=== PATIENT | female | born 1980 | race Caucasian/White ===

== ENCOUNTER 2020-04-12 21:05 | Emergency (ER) | payer OTHER, SELFPAY ==
--- NOTE | 2020-04-12 21:23 | ED.ALLEREA ---
HPI - Allergic Reaction General Chief complaint: Allergic Reaction Stated complaint: possible allergic reaction Time Seen by Provider: 04/12/20 21:23 Source: patient and RN notes reviewed Mode of arrival: ambulatory Limitations: no limitations History of Present Illness HPI narrative: Patient states that she woke up this morning with some flushing and swelling around her eyes. It seemed to progress to other parts of her body. She denies any contact with any lotions creams detergents new foods. She has had a history of allergy to NSAIDs in the past. She does not believe she came in contact with any of those. She denies any difficulty breathing chest pain. Denies any nausea vomiting abdominal pain. complaint: hives Onset (ago): hour(s) (14) Exposure: unknown Known history of allergy to: NSAIDS Symptoms: rash and itching Severity: moderate Treatment prior to arrival: benadryl Previous Allergic Reaction History: prior ED visit(s) Related Data Home Medications Medication Instructions Recorded Confirmed alprazolam 0.5 mg PO QID 04/12/20 04/12/20 Allergies Allergy/AdvReac Type Severity Reaction Status Date / Time ibuprofen Allergy Severe HIVES Unverified 08/18/19 09:55 ketorolac Allergy Severe Hives / Verified 08/18/19 09:55 Red Face naproxen Allergy Severe HIVES Verified 08/18/19 09:55 adhesive tape Allergy Intermediate ARAYA SKIN Verified 08/18/19 09:55 Review of Systems Constitutional: Constitutional: Denies chills, Denies fatigue, Denies fever(s) and Denies weakness Cardiovascular: Cardiovascular: Reports no additional cardiovascular complaints, Denies chest pain and Denies rapid heart rate Respiratory: Respiratory: Reports no additional respiratory complaints, Denies chest congestion, Denies dyspnea and Denies wheezing Gastrointestinal: Gastrointestinal: Reports no additional gastrointestinal complaints, Denies abdominal pain, Denies nausea and Denies vomiting Musculoskeletal: Musculoskeletal: Reports no additional musculoskeletal complaints Integumentary/Breasts: Skin/Breast: Reports as per HPI Neurologic: Reports system reviewed and no additional complaints, except as documented Psychiatric: Psychiatric: Reports no additional psychiatric complaints Endocrine: Endocrine: Reports no additional endocrine complaints PMFSH Past Medical History Medical History (Updated 04/12/20 @ 21:44 by Jermaine Alanis MD) Anxiety Surgical History Surgical History (Updated 04/12/20 @ 21:35 by Jermaine Alanis MD) H/O: hysterectomy History of appendectomy History of eye surgery Social History Social History (Updated 04/12/20 @ 21:36 by Jermaine Alanis MD) Smoking status: Never smoker Alcohol intake: never Substance use: never Exam Const: General: healthy appearing, no acute distress and alert Nutritional Appearance: well nourished Orientation/consciousness: patient oriented x3 Other: female nurse in room during examination. Eyes: Conjunctivae: conjunctivae normal Pupils: Equal, round and reactive pupils present EOM: EOMs intact bilaterally Neck: Neck: normal visual inspection and no lymphadenopathy Resp: Effort & Inspection: normal respiratory effort Auscultation: clear to auscultation bilaterally Cardio: Rate: regular rate Rhythm: regular rhythm Heart sounds: no murmurs GI: Auscultation: normal bowel sounds Back/Spine/Pelvis: Cervical Spine: cervical ROM normal Thoracic/Lumbar Spine: thoraco-lumbar ROM normal Skin: General skin exam: elasticity normal and turgor normal Rashes: rashes noted multiple locations distribution (scattered), morphology ( Urticarial), surface blanching, erythematous and warm and tender Neuro: General: patient oriented x3, moves all extremities and no focal motor deficits Speech: normal speech Extrem: General: normal to inspection and edema right (Ankle) Psych: Appearance: grossly normal and well kempt Affect: normal affect and Anxious affect pres
[2020-04-12 21:26] VITALS: BP 135/89; PULSE 54; RESP 17; TEMP 37.1; O2SAT 100
[2020-04-12] MEDS: methylPREDNISolone SOD SUCC 125 MG VIAL IM (21:38)
[2020-04-12] MEDS: FAMOTIDINE 20 MG TABLET PO (21:38)
[2020-04-12 21:54] VITALS: RESP 17
== END 2020-04-12 21:55 | disposition home or self-care (01) ==
PROVIDERS: Emergency Provider Emergency Medicine; PCP Internal Medicine
DX: L50.9 Urticaria, unspecified (principal)
CPT/HCPCS: 96372; 99282; 99283; A9270; J2930

== ENCOUNTER 2022-02-10 09:36 | Emergency (ER) | payer OTHER, SELFPAY ==
[2022-02-10 09:50] VITALS: BP 123/81; PULSE 68; RESP 16; TEMP 36.6; O2SAT 100
--- NOTE | 2022-02-10 10:00 | ED.EAR ---
HPI - Ear Problem General Stated complaint: lt ear pressure, loss of hearing Time Seen by Provider: 02/10/22 09:50 Source: patient Mode of arrival: ambulatory Limitations: no limitations History of Present Illness HPI Narrative: Pt presents with pain and pressure sensation in left ear for three days. Pt has some mild pressure in sinuses and nasal congestion but no purulent nasal drainage, fever, or SIFUENTES Complaint: ear pain and decreased hearing Location: left ear Duration: constant Severity: mild Relieving factors: nothing Exacerbating factors: nothing Context: Reports recent illness (nasal congestion) Discharge from ear: Reports no Treatment prior to arrival: none Related Data Home Medications Medication Instructions Recorded Confirmed No Home Medications 02/10/22 02/10/22 Allergies Allergy/AdvReac Type Severity Reaction Status Date / Time ibuprofen Allergy Severe HIVES Verified 02/10/22 10:02 ketorolac Allergy Severe Hives / Verified 02/10/22 10:02 Red Face naproxen Allergy Severe HIVES Verified 02/10/22 10:02 adhesive tape Allergy Intermediate ARAYA SKIN Verified 02/10/22 10:02 Review of Systems Review of Systems: All systems reviewed & are unremarkable except as noted in HPI and below PMFSH Past Medical History Medical History (Updated 02/10/22 @ 10:08 by Yovayn Gottlieb III, DO) Anxiety Surgical History Surgical History (Updated 04/12/20 @ 21:35 by Jermaine Alanis MD) H/O: hysterectomy History of appendectomy History of eye surgery Social History Social History (Updated 04/12/20 @ 21:36 by Jermaine Alanis MD) Smoking status: Never smoker Alcohol intake: never Substance use: never Exam Const: General: cooperative, healthy appearing, comfortable and no acute distress Nutritional Appearance: average body habitus Orientation/consciousness: patient oriented x3 Limitations: no limitations HENMT: Head: normal to inspection Ears: TM abnormal (TM's bulging b/l but left more than right no erythema) bulging General nose exam: Normal nasal mucous membranes and turbinates present Face and sinus: normal facial exam Mouth: Yes Normal oral and palatal mucosa present Teeth and gingiva: dentition normal Throat: posterior oropharynx normal Neck: Neck: normal visual inspection, full ROM and no lymphadenopathy Resp: Effort & Inspection: normal respiratory effort and able to speak in complete sentences Cardio: Jugular venous distension: no JVD Rate: regular rate Rhythm: regular rhythm Neuro: General: patient oriented x3 Cognition (Neuro): normal cognition Speech: normal speech Gait exam (Neuro): Normal gait present Psych: Appearance: grossly normal Mental Status: mental status grossly normal Speech and movement: Normal speech and movement present Affect: normal affect Attitude: cooperative Thought process: Normal thought process present Thought content: Yes Normal thought content present Discharge Plan Discharge Clinical Impression: Sinusitis Qualifiers: Sinusitis location: maxillary Chronicity: acute Recurrence: not specified as recurrent Qualified Code(s): J01.00 - Acute maxillary sinusitis, unspecified Patient Disposition: Home, Self-Care Condition: Stable Instructions: Antibiotic Form Additional Instructions: augmentin 875 mg BID for 10 d, also use afrin NS as directed for 2-3 days only to relieve pressure Prescriptions: No Action No Home Medications RF: 0 Follow-up/Referrals: Glenda,Kishan Del Cid MD [Primary Care Provider] -
== END 2022-02-10 10:16 | disposition home or self-care (01) ==
PROVIDERS: Emergency Provider Emergency Medicine; PCP Internal Medicine
DX: J01.00 Acute maxillary sinusitis, unspecified (principal)
CPT/HCPCS: 99281

== ENCOUNTER 2022-08-07 09:33 | Outpatient (CLI) | payer OTHER, SELFPAY | END 2022-08-07 09:34 | disposition home or self-care (01) | LOC: ANHSURGERY 09:38 | PROVIDERS: PCP Internal Medicine; Visit Provider Surgery | DX: K40.90 Unilateral inguinal hernia, without obstruction or gangrene, not specified as recurrent (principal); Z01.818 Encounter for other preprocedural examination | CPT/HCPCS: 36415; 86850; 86900; 86901 ==

== ENCOUNTER 2022-08-10 01:45 | Day surgery (SDC) | payer OTHER, SELFPAY ==
[2022-08-04 10:57] VITALS: BMI 22.6
--- NOTE | 2022-08-04 11:07 | PC.NURSE ---
Report to the Outpatient Waiting Room, entrance under the green pavilion located off [facility], at time 7:30 on date 08/10/22. OR Time: 9:30. Time changes happen often and if your time is changed the preop area will call you the afternoon before. - You and your visitor will be asked to self-screen and do not enter if you have any COVID symptoms. - Only one visitor and NO children visitors are allowed at this time. - The patient visitor is requested to leave or wait in car when not with patient due to restrictions. - A mask is required within the hospital. Patients may have clear liquids (water, carbonated beverages, clear teas, apple juice) until 3 hours prior to surgery (6:30) with a maximum of 20 ounces. - No food from midnight until time of surgery Take the following medications with a SIP of water the morning of surgery: NONE Medications to discontinue per physician: VITAMINS/SUPPLEMENTS Date to take last dose: 08/06/22 Please no make-up, nail belarusian, hairspray, perfume, deodorant, or body powder the day of surgery. No jewelry (including any body piercings) or valuables the day of surgery, leave them at home. Please take a shower or bath the night before, or the morning of, surgery with an antibacterial soap (HIBICLENS). Wear comfortable, loose fitting clothing. - Jewelry must be removed prior to entering the operating room. Rings and piercings that are not removed may be cut off. - The hospital will not accept responsibility for valuables. - Please leave all valuables, including medications, at home the day of surgery. If you are going home after surgery, a licensed team cdl driver must drive you home. - NO public transportation without another adult. - We recommend that an adult stay with you for 24 hours following discharge. - We also recommend that you do not drive, make important decision, drink alcoholic beverages, or take any drugs that were not prescribed by your health care provider for at least 24 hours after your discharge time. Follow any additional instructions given to you from your surgeon. If you or anyone in your household have experienced Covid symptoms in the past week, please notify your surgeon or the nurse liaison at the phone number below for possible testing. Telephone instructions given to PT - ARJUN CANO and asked if any additional questions and then verbalized understanding. Patient advised to call surgeon office or pre surgery nurse liaison [phone] if any additional questions.
[2022-08-10] VITALS (11 sets, daily range): BP systolic 105–136; BP diastolic 50–87; PULSE 51–100; RESP 8–16; TEMP 36.3–36.4; O2SAT 92–100
--- NOTE | 2022-08-10 07:30 | WPDHPUPDATE1 ---
History and Physical Update Update Date/Time: 08/10/22 07:30 History and Physical has been reviewed, including an updated exam of the patient. There are NO changes in the patient's condition. Risks, benefits, and alternatives have been discussed and questions answered. Patient agrees to proceed with procedure.
--- NOTE | 2022-08-10 08:08 | P.PNAN_ITS ---
Anes - Initial Pre Proc Eval Procedure: Operation Date: 08/10/22 09:30 Proposed Procedures p Robotic Assisted Right Inguinal Hernia Repair with Mesh - Nohemi Tang MD Date/Time: 08/10/22 08:08 Surgeon: Nohemi Tang MD Pre Op Diagnosis: Rt Ing Hernia Patient Data Age: 42 Gender: F Height: 1.63 m Weight: 59.87 kg Allergies Allergy/AdvReac Type Severity Reaction Status Date / Time ibuprofen Allergy Severe HIVES Verified 08/04/22 10:54 ketorolac Allergy Severe Hives / Verified 08/04/22 10:54 Red Face naproxen Allergy Severe HIVES Verified 08/04/22 10:54 adhesive tape Allergy Intermediate ARAYA SKIN Verified 08/04/22 10:54 Home Medications Medication Instructions Recorded Confirmed Type docusate sodium 100 mg capsule 100 mg PO DAILY 08/04/22 08/04/22 History (Colace) multivitamin 1 tablet PO DAILY 08/04/22 08/04/22 History Patient hx anesthesia problems: none Family hx anesthesia problems: none Results Review: All pre-operative results and documents have been reviewed as part of the pre- operative evaluation. [facility] Past Medical History Medical History Anxiety History of breast implant removal 2020 Traumatic enucleation of left eye Surgical History Surgical History (Updated 08/10/22 @ 08:09 by Lester Barba MD) H/O: hysterectomy 2017 History of appendectomy 1993 History of eye surgery left eye-multiple surgeries as a child Family History Family History Father , at age 58 Carcinoma of colon Diabetes mellitus Social History Social History Social History: daily caffeine use- 2 cups of coffee Years smoked: 10 Smoking status: Former smoker Tobacco type: cigarettes Smoking end date: 11/22/05 Alcohol intake: never Substance use: never Substance use type: does not use Living arrangements: with family Additional living arrangements comments: Patient is and has two children. One female, one male. Additional occupation/education comments: stay at home mother Gender identity (if verbalized by the patient): Female Sexual Orientation (if Verbalized by the Patient): Straight or Heterosexual Spiritual care concerns: No Anes - Eval Final PreProcedure Day of Procedure 08/10/22 08:08 Patient weight: normal Heart: regular rate and rhythm Lungs: clear to auscultation Airway: Mallampati scale class 1 and other (hx of TMJ with distant hx of dislocation) ASA classification: II Emergent: no Anesthetic plan: proceed Anesthesia type and monitoring: general ETT and standard monitoring Results Review: All pre-operative results and documents have been reviewed as part of the pre- operative evaluation. Informed Consent: The patient's anesthetic plan of GA with glidescope intubation and its attendant risks and benefits were discussed with the patient/family/POA. Questions were solicited and answers provided to the satisfaction of the patient/family/POA.
[2022-08-10] MEDS: ACETAMINOPHEN 500 MG TABLET 1000 MG PO (08:27)
[2022-08-10] MEDS: LACTATED RINGERS 1,000 ML 30 ML IV CONT ×2 (08:30→11:00)
[2022-08-10] MEDS: ceFAZolin 2 GM/D5W 50 ML 2 GM/50 ML BAG IVPB (09:12)
[2022-08-10] MEDS: BUPIVACAINE/EPINEPHRINE 0.25% 50 ML VIAL 30 ML INFILTRATE (09:47)
--- NOTE | 2022-08-10 10:18 | W.PM.PROC2 ---
Procedure Note - Detailed Date of Procedure 08/10/22 Pre-op Diagnosis right inguinal hernia Post-op Diagnosis Same Procedure Performed robotic assisted right inguinal hernia repair with mesh Surgeon Nohemi Tang MD Anesthesia General Indications 42-year-old female with progressively worsening right inguinal hernia over the last few years Findings indirect right inguinal hernia Description of Procedure Patient was brought into the operating room and placed in the supine position. After adequate induction of general anesthesia, the patient was prepped and draped in normal sterile fashion. A time-out was then done to verify the patient's identity, as well as the procedure being performed. Began by making a 8 mm incision in the supraumbilical region, a Veress needle was then placed into the peritoneal cavity. CO2 gas was then insufflated and after adequate pneumoperitoneum was achieved, the Veress needle was removed. I then placed an 8 mm trocar through this incision. I then placed the endoscope through this trocar site and under direct visualization placed 2 further 8 mm ports in the right and left mid abdomen. The [employer] robot was then docked to the 3 trocar sites. I then scrubbed out and went to the robotic console. Upon examining the pelvis, it was noted that the patient had a moderate right inguinal hernia. The left side was examined and no hernia defect was noted. I began by making a preperitoneal flap approximately 6 cm superior to the defect. This flap was carried medially past the umbilical ligaments in laterally to the transversalis. It then began dissection of my medial compartment taking this down to the pubic tubercle. I then began the lateral dissection taking this down to the transversalis fascia. Once these compartments were achieved, I began dissection around the round ligament. A moderate indirect hernia was noted at this point. Using careful dissection, was able to reduce indirect hernia sac off the round ligament. I also went ahead and transected the round ligament. Once this was adequately done, I went ahead and placed a large piece of 3D Max mesh into the abdominal cavity. The mesh was carefully positioned, centering the center of the mesh over the indirect defect. Once this was done, was very satisfied with our repair. Using 3-0 Vicryl sutures, I tacked the mesh medially to Brian's ligament. Two lateral sutures were placed from the mesh to the transversalis fascia. I then closed the peritoneal flap with a running 2.0 V Lock suture. The abdomen was then desufflated, and all ports were removed. All incisions were then closed with the 4.0 monocryl suture. Dermabond was placed on each wound. The patient tolerated the procedure well, was extubated in the operating room postoperatively, and will now be transferred to the recovery room in stable condition. Implants large 3DMax mesh Estimated Blood Loss 10 Drains No Packing No Pathology None sent Complications No immediate complications Condition Stable Disposition PACU [facility] Billing Surgery - Charge Forward: Surgery Billing
[2022-08-10] MEDS: fentaNYL CITRATE INJ (*CRX) 100 MCG/2 ML VIAL 25 MCG IV PUSH ×8 (10:48→11:39)
[2022-08-10] MEDS: HYDROmorphone HCL INJ (*CRX) 1 MG/ML SYR 0.5 MG IV PUSH ×2 (11:47→11:53)
[2022-08-10] MEDS: ONDANSETRON INJ 4 MG/2 ML VIAL IV PUSH (12:21)
== END 2022-08-10 12:53 | disposition home or self-care (01) ==
PROVIDERS: PCP Internal Medicine; Visit Provider Surgery
PROC: 8E0Y4CZ Robotic Assisted Procedure of Lower Extremity, Percutaneous Endoscopic Approach (ICD-10-PCS; CPT 49650; principal; 2022-08-10 09:30)
DX: K40.90 Unilateral inguinal hernia, without obstruction or gangrene, not specified as recurrent (principal); Z87.891 Personal history of nicotine dependence
CPT/HCPCS: 49650; S2900; A9270; C1781; J0690; J1100; J1170; J2250; J2405; J2704; J2710; J3010; J7120

== ENCOUNTER 2022-09-07 08:57 | Outpatient (CLI) | payer OTHER, SELFPAY ==
--- NOTE | ~2022-09-07 | MM_ITS ---
EXAMINATION: MM screening [facility] w petar HISTORY: Screening TECHNIQUE: Craniocaudal and mediolateral oblique 3-D tomosynthesis images were obtained and synthetic 2-D images were generated. CAD analysis was submitted and interpreted. COMPARISON: 10/28/2015 BREAST PARENCHYMAL COMPOSITION: The breasts are extremely dense, which lowers the sensitivity of mamm ography FINDINGS: There is no evidence of suspicious mass, calcification, or architectural distortion to sugg est malignancy in either breast. There has been no suspicious interval change. IMPRESSION: 1. No mammographic evidence of malignancy. 2. Recommend routine screening mammography in one year. BI-RADS Category 1: Negative Reviewed, dictated and finalized at location A.
== END 2022-09-07 08:58 | disposition home or self-care (01) ==
LOC: ANHIMG 08:58
PROVIDERS: PCP Internal Medicine; Visit Provider Obstetrics & Gynecology
DX: Z12.31 Encounter for screening mammogram for malignant neoplasm of breast (principal)
CPT/HCPCS: 77063; 77067

== ENCOUNTER 2023-12-31 14:45 | Outpatient (CLI) | payer OTHER, SELFPAY ==
--- NOTE | ~2023-12-31 | MM_ITS ---
EXAMINATION: MM screening [facility] BI w petar HISTORY: Screening mammogram TECHNIQUE: Craniocaudal and mediolateral oblique 3-D tomosynthesis images were obtained and synthetic 2-D images were generated. CAD analysis was submitted and interpreted. COMPARISON: 09/07/2022, 08/28/2015 BREAST PARENCHYMAL COMPOSITION: The breasts are extremely dense, which lowers the sensitivity of mamm ography. FINDINGS: No suspicious mass, calcification, or architectural distortion are identified in either joe ast to suggest malignancy. There has been no suspicious interval change. IMPRESSION: 1. No mammographic evidence of malignancy. 2. Recommend routine screening mammography in one year. BI-RADS Category 1: Negative Reviewed, dictated and finalized at location A. PER AND RECEIVING
== END 2023-12-31 14:46 | disposition home or self-care (01) ==
LOC: ANHIMG 14:45
PROVIDERS: PCP Internal Medicine; Visit Provider Obstetrics & Gynecology
DX: Z12.31 Encounter for screening mammogram for malignant neoplasm of breast (principal)
CPT/HCPCS: 77063; 77067

== ENCOUNTER 2024-01-13 11:29 | Outpatient (CLI) | payer OTHER, SELFPAY ==
[2024-01-13 12:15] LABS: Alanine Aminotransferase 14 U/L (6-35); Albumin Level 3.9 g/dL (3.5-5.1); Alkaline Phosphatase 48 U/L (38-126); Amylase 91 U/L (30-110); Aspartate Amino Transferase 22 U/L (14-36); Bilirubin,Total 0.3 mg/dL (0.2-1.3); Lipase 94 U/L (23-300)
== END 2024-01-13 11:30 | disposition home or self-care (01) ==
LOC: ANHSURGERY 11:35
PROVIDERS: PCP Internal Medicine; Visit Provider Surgery
DX: K80.10 Calculus of gallbladder with chronic cholecystitis without obstruction (principal); Z01.818 Encounter for other preprocedural examination
CPT/HCPCS: 36415; 80076; 82150; 83690

== ENCOUNTER 2024-01-31 02:51 | Day surgery (SDC) | payer OTHER, SELFPAY ==
[2024-01-10 13:11] VITALS: BMI 23.6
--- NOTE | 2024-01-10 13:12 | PC.NURSE ---
Report to the Outpatient Waiting Room, entrance under the green pavilion located off [facility], at time _0830_ on date _[id number]_. Planned Procedure Time: _1030_. Time changes happen often and if your time is changed the preop area will call you the afternoon before. - You and your visitor will be asked to self-screen and do not enter if you have any COVID symptoms. - A mask is optional within the hospital at this time. Patients may have clear liquids (water, carbonated beverages, clear teas, apple juice) until 3 hours prior to surgery with a maximum of 20 ounces. - No food from midnight until time of surgery Take the following medications with a SIP of water the morning of surgery: ____None DO NOT STOP ANY OF YOUR OTHER PRESCRIPTION MEDICATIONS PRIOR TO SURGERY ?EXCEPT THE FOLLOWING Medications to discontinue per physician None Date to take last dose Please no make-up, nail uzbek, hairspray, perfume, deodorant, or body powder the day of surgery. No jewelry (including any body piercings) or valuables the day of surgery, leave them at home. Please take a shower or bath the night before, or the morning of, surgery with an antibacterial soap. Wear comfortable, loose fitting clothing. - Jewelry must be removed prior to entering the operating room. Rings and piercings that are not removed may be cut off. - The hospital will not accept responsibility for valuables. - Please leave all valuables, including medications, at home the day of surgery. If you are going home after surgery, a licensed restaurant delivery driver must drive you home. - NO public transportation without another adult if you receive anesthesia. - We recommend that an adult stay with you for 24 hours following discharge. - We also recommend that you do not drive, make important decision, drink alcoholic beverages, or take any drugs that were not prescribed by your health care provider for at least 24 hours after your discharge time. Follow any additional instructions given to you from your surgeon. If you or anyone in your household have experienced Covid symptoms in the past week, please notify your surgeon or the nurse liaison at the phone number below for possible testing. Telephone instructions given to _Bettye and asked if any additional questions and then verbalized understanding. Patient advised to call surgeon office or pre surgery nurse liaison [phone] if any additional questions.
--- NOTE | 2024-01-24 09:28 | PC.NURSE ---
Report to the Outpatient Waiting Room, entrance under the green pavilion located off [facility], at time _1000_ on date _01/31/24__. Planned Procedure Time: _1200_. Time changes happen often and if your time is changed the preop area will call you the afternoon before. - You and your visitor will be asked to self-screen and do not enter if you have any COVID symptoms. - A mask is optional within the hospital at this time. Patients may have clear liquids (water, carbonated beverages, clear teas, apple juice) until 3 hours prior to surgery with a maximum of 20 ounces. - No food from midnight until time of surgery - Infants may have breast milk until 4 hours before surgery, infant formula 6 hours prior to surgery. - Children will be allowed to drink immediately following surgery. If applicable, please bring a bottle or sippy cup to assist with drinking. Juice, water, soda, and popsicles are readily available. For infants on formula, please bring formula the day of surgery. Pacifiers are allowed. Take the following medications with a SIP of water the morning of surgery: _None__ DO NOT STOP ANY OF YOUR OTHER PRESCRIPTION MEDICATIONS PRIOR TO SURGERY ?EXCEPT THE FOLLOWING Medications to discontinue per physician __vitamins and supplements 3 days prior_ Date to take last dose Please no make-up, nail citizen of [place], hairspray, perfume, deodorant, or body powder the day of surgery. No jewelry (including any body piercings) or valuables the day of surgery, leave them at home. Please take a shower or bath the night before, or the morning of, surgery with an antibacterial soap. Wear comfortable, loose fitting clothing. Children are encouraged to wear pajamas. - Jewelry must be removed prior to entering the operating room. Rings and piercings that are not removed may be cut off. - The hospital will not accept responsibility for valuables. - Please leave all valuables, including medications, at home the day of surgery. If you are going home after surgery, a licensed shuttle van driver must drive you home. - NO public transportation without another adult if you receive anesthesia. - We recommend that an adult stay with you for 24 hours following discharge. - We also recommend that you do not drive, make important decision, drink alcoholic beverages, or take any drugs that were not prescribed by your health care provider for at least 24 hours after your discharge time. For Pediatric surgeries, we recommend two adults accompany the child home. Follow any additional instructions given to you from your surgeon. If you or anyone in your household have experienced Covid symptoms in the past week, please notify your surgeon or the nurse liaison at the phone number below for possible testing. Telephone instructions given to _patient__and asked if any additional questions and then verbalized understanding. Patient advised to call surgeon office or pre surgery nurse liaison [phone] if any additional questions.
--- NOTE | 2024-01-24 09:36 | PC.NURSE ---
Spoke to pt on 01/24/24 to review pt Hx. Reviewed pt history and home medications. Reviewed pt new date and time for surgery. All questions answered. PT has labs in EMR from 01/13/24.
[2024-01-31] VITALS (12 sets, daily range): BP systolic 102–121; BP diastolic 52–81; PULSE 64–81; RESP 12–22; TEMP 36.4–36.6; O2SAT 100
[2024-01-31] MEDS: ACETAMINOPHEN 500 MG TABLET 1000 MG PO (10:30)
--- NOTE | 2024-01-31 11:44 | WPDANESEPPF ---
Anes - Initial Pre Proc Eval Procedure: Operation Date: 01/31/24 12:00 Proposed Procedures p Laparoscopic Cholecystectomy - Nohemi Tang MD Date/Time: 01/31/24 11:44 Surgeon: Nohemi Tang MD Pre Op Diagnosis: chronic cholecystitis with cholelithiasis Patient Data Age: 43 Gender: F Height: 1.63 m Weight: 63.15 kg Last Vital Signs Temp 97.6 F 01/31/24 10:55 Pulse 80 01/31/24 10:55 Resp 16 01/31/24 10:55 BP 113/66 01/31/24 10:55 Pulse Ox 100 01/31/24 10:55 O2 Del Method Room Air 01/31/24 10:55 Allergies Allergy/AdvReac Type Severity Reaction Status Date / Time ibuprofen Allergy Severe HIVES Verified 01/31/24 10:56 ketorolac Allergy Severe Hives / Verified 01/31/24 10:56 Red Face naproxen Allergy Severe HIVES Verified 01/31/24 10:56 adhesive tape Allergy Intermediate ARAYA SKIN Verified 01/31/24 10:56 Home Medications Medication Instructions Recorded Confirmed Type clobetasol 0.05 % scalp solution 1 applic topical DAILY 01/03/24 01/10/24 History sennosides 8.6 mg tablet (Natural 8.6 mg PO DAILY 01/03/24 01/10/24 History Senna Laxative) Patient hx anesthesia problems: post op nausea/vomiting (scopolamine makes PONV worse) Family hx anesthesia problems: none Results Review: All pre-operative results and documents have been reviewed as part of the pre-operative evaluation. [facility] Past Medical History Medical History Anxiety History of breast implant removal 2020 Personal history of kidney stones Traumatic enucleation of left eye Surgical History Surgical History H/O: hysterectomy 2017 History of appendectomy 1993 History of eye surgery left eye-multiple surgeries as a child History of robot-assisted repair of right inguinal hernia Robo Assist Right Inguinal Hernia Repair with mesh on 08/10/22 Family History Family History Father , at age 58 Carcinoma of colon Diabetes mellitus Other Cancer Hypertension Social History Social History Social History: daily caffeine use- 2 cups of coffee Smoking packs per day: 0.75 Smoking cigarettes per day: 15.0 Years smoked: 5 Smoking pack-years: 3.75 Smoking status: Former smoker Tobacco type: cigarettes Smoking end date: 01/10/06 Alcohol intake: never Substance use: never Substance use type: does not use Living arrangements: with family Additional living arrangements comments: Patient is and has two children. One female, one male. Occupation/Education: other Additional occupation/education comments: stay at home mother Gender identity (if verbalized by the patient): Female Sexual Orientation (if Verbalized by the Patient): Straight or Heterosexual Spiritual care concerns: No Anes - Eval Final PreProcedure Day of Procedure 01/31/24 11:44 Patient weight: normal Heart: regular rate and rhythm Lungs: clear to auscultation Airway: Mallampati scale class II Neurological: alert and oriented Last oral intake: >/= 8 hours ASA classification: II Emergent: no Anesthetic plan: proceed Anesthesia type and monitoring: general ETT and standard monitoring Results Review: All pre-operative results and documents have been reviewed as part of the pre-operative evaluation. Informed Consent: The patient's anesthetic plan and its attendant risks and benefits were discussed with the patient/family/POA. Questions were solicited and answers provided to the satisfaction of the patient/family/POA.
--- NOTE | 2024-01-31 11:55 | WPDHPUPDATE1 ---
History and Physical Update Update Date/Time: 01/31/24 11:55 History and Physical has been reviewed, including an updated exam of the patient. There are NO changes in the patient's condition. Risks, benefits, and alternatives have been discussed and questions answered. Patient agrees to proceed with procedure.
[2024-01-31] MEDS: ceFAZolin 2 GM/D5W 50 ML 2 GM/50 ML BAG IVPB (12:02)
[2024-01-31] MEDS: LACTATED RINGERS 1,000 ML 30 ML IV CONT ×2 (13:13→14:27)
--- NOTE | 2024-01-31 13:13 | W.PM.PROC2 ---
Procedure Note - Detailed Date of Procedure 01/31/24 Pre-op Diagnosis chronic cholecystitis with cholelithiasis Post-op Diagnosis Same Procedure Performed Laparoscopic cholecystectomy Surgeon Nohemi Tang MD Anesthesia General Indications 43-year-old female presented to the office complaining of postprandial right upper quadrant abdominal pain associated with nausea and vomiting. Workup including imaging significant for cholecystitis, cholelithiasis. Findings Cholecystitis with cholelithiasis Description of Procedure The patient was taken to the operating room placed in the supine position. After adequate induction of general anesthesia, the patient was prepped and draped in normal sterile fashion. A time-out was then performed to verify the patient's identity as well as the procedure being performed. I then made a 5 mm incision in the infraumbilical region. Through this, a Veress needle was placed into the peritoneal cavity and CO2 gas was then insufflated. After adequate pneumoperitoneum was achieved, the Veress needle was removed and a 5 mm optiview trocar was placed through this incision under direct visualization. I then placed the laparoscope through this trocar site and under direct visualization placed a further 12 mm subxiphoid port as well as 2 additional 5 mm ports in the right upper abdomen. The gallbladder was then identified and was noted to be moderately inflamed, distended, and full of gallstones. I was able to place a grasper at the dome of the gallbladder and this was retracted anterior and cephalad up over the liver. A 2nd retractor was then placed at the infundibulum and retracted laterally, this allowed visualization of the triangle of Calot. I then was able to visualize the cystic duct in its entirety from its proximal insertion into the gallbladder, to its distal junction with the common hepatic/common bile duct junction. At this point, I carefully skeletonized the proximal cystic duct with the [place] dissector. I then clipped and transected the proximal cystic duct. Next I visualized the cystic artery. Again the artery was skeletonized, clipped, and transected. I then used the Bovie cautery to take down the peritoneal attachments of the gallbladder off the liver bed. This was somewhat difficult given the amount of inflammation in the posterior space. Once the gallbladder specimen was completely detached, an endo-pouch was placed through the 12 mm port site. I then placed the gallbladder specimen into the Endo pouch and removed the endo-pouch from the 12 mm port site. The specimen will now be sent to pathology for further review. I then copiously irrigated the right upper quadrant. Some mild oozing was noted in the liver bed and this was controlled with the bovie cautery. Hemostasis was noted in the liver bed, the clips were noted to be in good position on both the cystic duct stump and the cystic artery stump. No other pathology was noted in the right upper quadrant. I then moved the laparoscope to the subxiphoid port. No iatrogenic injury or other pathology was noted in the lower abdomen. I then closed the 12 mm trocar site under direct visualization using the Frantz cone and 0 Vicryl suture. At this point, the abdomen was desufflated and all ports removed. All port sites were then closed with 4.O Monocryl subcuticular sutures. Dermabond was placed on each incision. The patient tolerated the procedure well, was extubated in the operating room postoperative and will be transferred to the recovery room in stable condition Estimated Blood Loss 10 Drains No Packing No Pathology Yes Complications No immediate complications Condition Stable Disposition PACU [facility] Billing Surgery - Charge Forward: Surgery Billing
[2024-01-31] MEDS: fentaNYL CITRATE INJ (*CRX) 100 MCG/2 ML VIAL 25 MCG IV PUSH ×8 (13:42→14:35)
[2024-01-31] MEDS: oxyCODONE HCL (*CRX) 5 MG TAB IR PO (15:02)
== END 2024-01-31 15:57 | disposition home or self-care (01) ==
PROVIDERS: PCP Internal Medicine; Visit Provider Surgery
PROC: 0FT44ZZ Resection of Gallbladder, Percutaneous Endoscopic Approach (ICD-10-PCS; CPT 47562; principal; 2024-01-31 12:00)
DX: K80.10 Calculus of gallbladder with chronic cholecystitis without obstruction (principal); F41.9 Anxiety disorder, unspecified; Z98.890 Other specified postprocedural states; Z87.891 Personal history of nicotine dependence; Z80.0 Family history of malignant neoplasm of digestive organs
CPT/HCPCS: 47562; 88304; A9270; J0690; J1100; J2250; J2405; J2704; J3010; J7030; J7120

== ENCOUNTER 2024-04-12 14:50 | Outpatient (CLI) | payer OTHER, SELFPAY ==
--- NOTE | ~2024-04-12 | XR_ITS ---
EXAMINATION: XR abdomen/kub 1V DATE: 04/12/2024 15:14 INDICATION: Chronic epigastric pain TECHNIQUE: A supine view of the abdomen on 2 radiographs was obtained. COMPARISON: None. FINDINGS: Persistent gas and small amount of stool in the proximal colon and additional small amount of gas wit hin a nondilated loop of small bowel in the left abdomen. No dilated loops of bowel to suggest obstru ction. Cholecystectomy clips in right upper quadrant with either dropped clips or appendectomy clips in the right lower quadrant. Multiple phleboliths in the pelvis. Lung bases are clear. Heart size is normal. IMPRESSION: 1. Unremarkable bowel gas pattern with no dilated loops to suggest obstruction. Reviewed, dictated and finalized at location A.
[2024-04-12 15:20] LABS: Hematocrit 38.4 % (37.0-47.0); Hemoglobin 11.9 g/dL (12.0-15.0); Mean Corpuscular Hemoglobin 27.9 pg (26-34); Mean Corpuscular Volume 89.9 fl (80-100); Mean Platelet Volume 9.6 fl (7.4-10.4); Platelet Count Result 287 k/mm3 (150-375); Red Blood Count 4.27 M/mm3 (4.2-5.4); Red Cell Distribution Width 13.6 % (11.5-14.5); White Blood Count 4.5 K/mm3 (4.5-10.0)
[2024-04-12 15:40] LABS: Alanine Aminotransferase 13 U/L (6-35); Albumin Level 4.1 g/dL (3.5-5.1); Alkaline Phosphatase 50 U/L (38-126); Amylase 78 U/L (30-110); Anion Gap 3 mmol/L (4-12); Aspartate Amino Transferase 24 U/L (14-36); Bilirubin,Total 0.3 mg/dL (0.2-1.3); Blood Urea Nitrogen 18 mg/dL (7-17); CRP < 0.5 mg/dL (<1.0); Calcium 9.2 mg/dL (8.4-10.2); Carbon Dioxide 29 mmol/L (22-30); Chloride 107 mmol/L (98-107); Estimated Glomerular Filt Rate > 60; Glucose 97 mg/dL (65-110); Lipase 108 U/L (23-300); Potassium 3.7 mmol/L (3.4-5.0); Sodium 139 mmol/L (137-145)
[2024-04-12 16:50] LABS: Erythrocyte Sedimentation Rate 9 mm/hr (0-20)
[2024-04-12 16:57] LABS: Thyroid Stimulating Hormone Reflex 0.859 uIU/mL (0.465-4.68)
[2024-04-14 17:44] LABS: Immunoglobulin A 129 mg/dL (47-310); TTG IGA AB 1.1 U/mL
== END 2024-04-12 14:51 | disposition home or self-care (01) ==
PROVIDERS: PCP Internal Medicine; Visit Provider Nurse Practitioner
DX: R10.13 Epigastric pain (principal); R14.0 Abdominal distension (gaseous); R63.0 Anorexia; R68.81 Early satiety; Z86.010 Personal history of colon polyps
CPT/HCPCS: 36415; 74018; 80053; 82150; 82784; 83690; 84443; 85027; 85652; 86140; 86364

== ENCOUNTER 2024-04-21 08:27 | Outpatient (CLI) | payer OTHER, SELFPAY ==
--- NOTE | ~2024-04-21 | CT_ITS ---
CT of the Abdomen and Pelvis: Indication: Anorexia Technique: 2.5 mm axial scans were obtained through the abdomen and pelvis following intravenous adm inistration of 100 cc of Omnipaque 350. Dose reduction technique was used on this scan by utilizing a utomated exposure control and iterative reconstruction technique. The dose-length product (DLP) was 3 11.93 mGy-cm. Findings: Scans through the lung bases are unremarkable. The liver, spleen, pancreas, adrenals and right kidney are within normal limits. Cholecystectomy clip s are present. 5 mm nonobstructing left renal stone present. No evidence of aortic aneurysm. No lymp hadenopathy. Probable extensive wall thickening diffusely involving large bowel, especially descending colon, sigm oid colon, and rectum. No bowel obstruction. No abscess or free air evident. Images through the pelvis were performed. Urinary bladder unremarkable. No pelvic mass seen. No ascit es. Impression: Findings consistent with pancolitis, likely infectious/inflammatory in nature. Correlate clinically. 5 mm nonobstructing left renal stone. Reviewed, dictated and finalized at location . Impression: Findings consistent with pancolitis, likely infectious/inflammatory in nature. Correlate clinically. 5 mm nonobstructing left renal stone.
== END 2024-04-21 08:28 | disposition home or self-care (01) ==
PROVIDERS: PCP Internal Medicine; Visit Provider Nurse Practitioner
DX: R10.13 Epigastric pain (principal); R68.81 Early satiety; R14.0 Abdominal distension (gaseous); R63.0 Anorexia; N20.0 Calculus of kidney
CPT/HCPCS: 74177; Q9967

== ENCOUNTER 2024-04-26 01:29 | Day surgery (SDC) | payer OTHER, SELFPAY ==
[2024-04-24 13:30] VITALS: BMI 23.7
[2024-04-26 10:19] VITALS: BP 118/63; PULSE 78; RESP 18; TEMP 36.6; O2SAT 100
[2024-04-26] MEDS: LACTATED RINGERS 1,000 ML 150 ML IV CONT (10:26)
--- NOTE | 2024-04-26 11:54 | WPDHPUPDATE1 ---
History and Physical Update Update Date/Time: 04/26/24 11:54 History and Physical has been reviewed, including an updated exam of the patient. There are NO changes in the patient's condition. Risks, benefits, and alternatives have been discussed and questions answered. Patient agrees to proceed with procedure.
[2024-04-26 12:11] VITALS: BP 109/67; PULSE 77; RESP 24; O2SAT 100
[2024-04-26 12:21] VITALS: BP 119/77; PULSE 64; RESP 23; O2SAT 100
[2024-04-26 12:31] VITALS: BP 118/75; PULSE 70; RESP 18; O2SAT 100
== END 2024-04-26 12:41 | disposition home or self-care (01) ==
PROVIDERS: PCP Internal Medicine; Referring Provider Nurse Practitioner; Visit Provider Internal Medicine Gastroenterology
PROC: 0DJ08ZZ Inspection of Upper Intestinal Tract, Via Natural or Artificial Opening Endoscopic (ICD-10-PCS; CPT 43235; principal; 2024-04-26 11:30)
DX: K29.70 Gastritis, unspecified, without bleeding (principal); Z87.891 Personal history of nicotine dependence
CPT/HCPCS: 43239; 87081; 88305; J2704; J7120

== ENCOUNTER 2024-05-30 09:36 | Outpatient (CLI) | payer OTHER, SELFPAY ==
[2024-05-30 11:49] LABS: Toxigenic C. Diff POSITIVE (NEGATIVE)
[2024-06-05 21:09] LABS: Calprotectin, Stool 21 mcg/g
[2024-06-06 08:49] LABS: Reference Lab Test Name Yersinia Culture
[2024-06-06 08:50] LABS: Reference Lab Test Result No Yersinia isolated
== END 2024-05-30 09:37 | disposition home or self-care (01) ==
LOC: ANHLAB 09:38
PROVIDERS: PCP Internal Medicine; Visit Provider Nurse Practitioner
DX: K51.00 Ulcerative (chronic) pancolitis without complications (principal); R14.0 Abdominal distension (gaseous); R10.13 Epigastric pain
CPT/HCPCS: 36415; 83993; 87045; 87177; 87209; 87269; 87427; 87449; 87493

== ENCOUNTER 2024-07-11 02:39 | Day surgery (SDC) | payer OTHER, SELFPAY ==
[2024-05-24 12:45] VITALS: BMI 23.5
--- NOTE | 2024-06-22 12:52 | PC.NURSE ---
Pt re-scheduled for colonoscopy. Pt's states no change in past medical history or medications since last interview. Pt updated on instructions and new date/time of procedure.
[2024-07-11 10:12] VITALS: BMI 23.4
[2024-07-11] MEDS: LACTATED RINGERS 1,000 ML 150 ML IV CONT (10:21)
--- NOTE | 2024-07-11 10:48 | WPDANESEPPF ---
Anes - Initial Pre Proc Eval Procedure: Operation Date: 07/11/24 14:00 Proposed Procedures p Colonoscopy - Tal Betancourt MD Date/Time: 07/11/24 10:48 Surgeon: Tal Betancourt MD Pre Op Diagnosis: Ulcerative pancolitis, Abd. distension Patient Data Age: 44 Gender: F Height: 1.63 m Weight: 61.9 kg Allergies Allergy/AdvReac Type Severity Reaction Status Date / Time ibuprofen Allergy Severe HIVES Verified 07/11/24 10:05 ketorolac Allergy Severe Hives / Verified 07/11/24 10:05 Red Face naproxen Allergy Severe HIVES Verified 07/11/24 10:05 adhesive tape Allergy Intermediate ARAYA SKIN Verified 07/11/24 10:05 latex Allergy Intermediate Blister Verified 07/11/24 10:05 scopolamine AdvReac Intermediate Nausea and Verified 07/11/24 10:13 Vomiting Home Medications Medication Instructions Recorded Confirmed Type clobetasol 0.05 % scalp solution 1 applic topical DAILY PRN FLARE UP 01/03/24 05/29/24 History sennosides 8.6 mg tablet (Natural 8.6 mg PO DAILY PRN Constipation 01/03/24 06/22/24 History Senna Laxative) omeprazole 40 mg capsule,delayed 40 mg PO .bid #60 caps 04/26/24 06/22/24 Rx release acetaminophen-caffeine 500 mg-65 1 tablet PO Q12H PRN Headache 07/11/24 07/11/24 History mg tablet Patient hx anesthesia problems: none Family hx anesthesia problems: none Results Review: All pre-operative results and documents have been reviewed as part of the pre-operative evaluation. [facility] Past Medical History Medical History Anxiety History of breast implant removal 2020 Personal history of kidney stones Traumatic enucleation of left eye Surgical History Surgical History H/O: hysterectomy 2017 History of appendectomy 1993 History of eye surgery left eye-multiple surgeries as a child History of laparoscopic cholecystectomy 01/31/24 History of robot-assisted repair of right inguinal hernia Robo Assist Right Inguinal Hernia Repair with mesh on 08/10/22 Family History Family History Father , at age 58 Carcinoma of colon Diabetes mellitus Other Cancer Hypertension Social History Social History Social History: daily caffeine use- 2 cups of coffee Smoking packs per day: 1 Smoking cigarettes per day: 20.0 Years smoked: 5 Smoking pack-years: 5.00 Smoking status: Former smoker Tobacco type: cigarettes Smoking end date: 01/10/06 Alcohol intake: current Substance use: never Substance use type: does not use Living arrangements: with family Additional living arrangements comments: Patient is and has two children. One female, one male. Occupation/Education: other Additional occupation/education comments: stay at home mother Gender identity (if verbalized by the patient): Female Sexual Orientation (if Verbalized by the Patient): Straight or Heterosexual Spiritual care concerns: No Anes - Eval Final PreProcedure Day of Procedure 07/11/24 10:48 Patient weight: normal Heart: regular rate and rhythm Lungs: clear to auscultation Airway: Mallampati scale class II Neurological: alert and oriented Last oral intake: >/= 8 hours ASA classification: II Emergent: no Anesthetic plan: proceed Anesthesia type and monitoring: general GIVS and standard monitoring Results Review: All pre-operative results and documents have been reviewed as part of the pre-operative evaluation. Informed Consent: The patient's anesthetic plan and its attendant risks and benefits were discussed with the patient/family/POA. Questions were solicited and answers provided to the satisfaction of the patient/family/POA.
--- NOTE | 2024-07-11 10:58 | PM.HPGS ---
History of Present Illness History of Present Illness Consent: Risks, benefits, and alternatives have been discussed and questions answered. Patient agrees to proceed with procedure. Chief complaint: Ulcerative pancolitis, Abd. distension Narrative: Bettye Dixon is a 44 year old female with c diff colitis 1 month ago, had colonoscopy with polyps last year, still some loose stools and abdominal discomfort after eating, also recently with COVID Review of Systems Review of Systems: All systems reviewed & are unremarkable except as noted in HPI and below PMFSH Past Medical History Medical History Anxiety History of breast implant removal 2020 Personal history of kidney stones Traumatic enucleation of left eye Surgical History Surgical History H/O: hysterectomy 2017 History of appendectomy 1993 History of eye surgery left eye-multiple surgeries as a child History of laparoscopic cholecystectomy 01/31/24 History of robot-assisted repair of right inguinal hernia Robo Assist Right Inguinal Hernia Repair with mesh on 08/10/22 Family History Family History Father , at age 58 Carcinoma of colon Diabetes mellitus Other Cancer Hypertension Social History Social History Social History: daily caffeine use- 2 cups of coffee Smoking packs per day: 1 Smoking cigarettes per day: 20.0 Years smoked: 5 Smoking pack-years: 5.00 Smoking status: Former smoker Tobacco type: cigarettes Smoking end date: 01/10/06 Alcohol intake: current Substance use: never Substance use type: does not use Living arrangements: with family Additional living arrangements comments: Patient is and has two children. One female, one male. Occupation/Education: other Additional occupation/education comments: stay at home mother Gender identity (if verbalized by the patient): Female Sexual Orientation (if Verbalized by the Patient): Straight or Heterosexual Spiritual care concerns: No Meds Home Medications and Allergies Home Medications Medication Instructions Recorded Confirmed Type clobetasol 0.05 % scalp solution 1 applic topical DAILY PRN FLARE UP 01/03/24 05/29/24 History sennosides 8.6 mg tablet (Natural 8.6 mg PO DAILY PRN Constipation 01/03/24 06/22/24 History Senna Laxative) omeprazole 40 mg capsule,delayed 40 mg PO .bid #60 caps 04/26/24 06/22/24 Rx release acetaminophen-caffeine 500 mg-65 1 tablet PO Q12H PRN Headache 07/11/24 07/11/24 History mg tablet Allergies Allergy/AdvReac Type Severity Reaction Status Date / Time ibuprofen Allergy Severe HIVES Verified 07/11/24 10:05 ketorolac Allergy Severe Hives / Verified 07/11/24 10:05 Red Face naproxen Allergy Severe HIVES Verified 07/11/24 10:05 adhesive tape Allergy Intermediate ARAYA SKIN Verified 07/11/24 10:05 latex Allergy Intermediate Blister Verified 07/11/24 10:05 scopolamine AdvReac Intermediate Nausea and Verified 07/11/24 10:13 Vomiting Exam Const: General: comfortable and no acute distress HENMT: Face/Nose/Sinus: Normal nares present Eyes: General: appearance normal, both eyes and all related structures Neck: Neck: no JVD Resp: Auscultation: clear to auscultation bilaterally Cardio: Rate: regular rate Rhythm: regular rhythm GI: Inspection: non-distended GI Palp: Yes Soft to palpation Skin: General skin exam: normal color Neuro: General: gait normal Speech: normal speech Extrem: General: normal to inspection Psych: Mental Status: mental status grossly normal Assessment and Plan Assessment and plan (1) Hx of colonic polyp: Code(s): Z86.010 - Personal history of colonic polyps Status: Acute (2) Pancolitis: Code(s): K51.00 - Ulcerative
[2024-07-11 11:19] VITALS: BP 103/67; PULSE 89; RESP 26; O2SAT 100
[2024-07-11 11:29] VITALS: BP 109/58; PULSE 74; RESP 19; O2SAT 99
[2024-07-11 11:39] VITALS: BP 122/78; PULSE 82; RESP 20; O2SAT 99
== END 2024-07-11 11:42 | disposition home or self-care (01) ==
PROVIDERS: PCP Internal Medicine; Referring Provider Nurse Practitioner; Visit Provider Internal Medicine Gastroenterology
PROC: 0DJD8ZZ Inspection of Lower Intestinal Tract, Via Natural or Artificial Opening Endoscopic (ICD-10-PCS; CPT 45378; principal; 2024-07-11 14:00)
DX: K63.89 Other specified diseases of intestine (principal); K64.8 Other hemorrhoids; F41.9 Anxiety disorder, unspecified; Z98.890 Other specified postprocedural states; Z90.49 Acquired absence of other specified parts of digestive tract; Z87.891 Personal history of nicotine dependence; Z86.010 Personal history of colon polyps; Z87.442 Personal history of urinary calculi; Z80.0 Family history of malignant neoplasm of digestive organs
CPT/HCPCS: 45380; 88305; J2704; J7120

== ENCOUNTER 2024-10-13 08:06 | Outpatient (CLI) | payer OTHER, SELFPAY ==
[2024-10-13 08:59] LABS: Toxigenic C. Diff NEGATIVE (NEGATIVE)
== END 2024-10-13 08:07 | disposition home or self-care (01) ==
LOC: CHSLAB 08:07
PROVIDERS: PCP Internal Medicine; Visit Provider Internal Medicine
DX: R19.7 Diarrhea, unspecified (principal)
CPT/HCPCS: 87493

== ENCOUNTER 2025-02-16 08:21 | Outpatient (CLI) | payer OTHER, SELFPAY ==
--- NOTE | ~2025-02-16 | MM_ITS ---
EXAMINATION: MM screening veronica BI w petar HISTORY: Screening TECHNIQUE: Craniocaudal and mediolateral oblique 3-D tomosynthesis images were obtained and synthetic 2-D images were generated. CAD analysis was submitted and interpreted. COMPARISON: 12/31/2023 and dating back to 10/28/2015 BREAST PARENCHYMAL COMPOSITION: The breasts are extremely dense, which lowers the sensitivity of mamm ography. FINDINGS: Punctate calcifications are detected bilaterally, stable and benign in appearance. Stable parenchymal pattern without suspicious microcalcifications, architectural distortion, discrete masses or significant asymmetry. IMPRESSION: 1. No mammographic evidence of malignancy. 2. Recommend routine screening mammography in one year. BI-RADS Category 2: Benign finding(s). Reviewed, dictated and finalized at location A.
--- OUTSIDE RECORDS SUMMARY | 2025-02-16 08:33 | XMS_ITS | Referral Summary ---
Author Organization [facility] [address] Address [address] [place] [address] Care Team Providers Care Lead Material Handler Name Role Phone Kishan Doshi MD Primary Care Provider [phone] Allergies Active Allergy Reactions Criticality Noted Date Comments Adhesive Tape-Silicones Rash Medium 02/19/2021 Ibuprofen Hives,Itching High Reaction: Hives, Itching, Scopolamine Nausea And Vomiting High 03/17/2021 Severe nausea /vomiting works opposite on her per pt Medications clobetasoL (TEMOVATE) 0.05 % cream APPLY TO AFFECTED AREA 3 TIMES A WEEK 09/11/2022 Active cyclobenzaprine (FLEXERIL) 10 mg tablet Take 10 mg by mouth 3 (three) times a day 09/24/2022 Active ALPRAZolam (XANAX) 0.5 mg tablet Take 1 tablet (0.5 mg total) by mouth 4 (four) times a day as needed for anxiety 120 tablet 07/13/2023 Active Active Problems Problem Noted Date Diagnosed Date Raynaud's disease without gangrene 04/06/2022 Family history of colon cancer 01/15/2021 Anxiety 01/15/2021 Overview (01/15/2021): Continue medication Routine general medical exam ination at a health care facility 01/15/2021 Overview (01/15/2021): Check labs at this time 11/01/2014 Obstetric risk in currently patient 09/2014 Female infertility 11/18/2012 Immunizations Immunization Administration Dates Next Due Influenza, Quadrivalent, Spl it, Preservative Free, Intramuscular 09/14/2018 Tdap 06/13/2015 Social History Tobacco Use Types Packs/Day Years Used Date Smoking Tobacco: Former Cigarettes Q uit: 2006 Tobacco Cessation:Counseling Given: Not Answered Comments Unknown Sex and Gender Information Value Date Recorded Sex Assigned at Not on file Legal Sex 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 [employer]IV[employer] Gender Identity Female 09/23/2021 10:15 AM CDT Sexual Orientation Straight 09/23/2021 10 :15 AM CDT Last Filed Vital Signs Vital Sign Reading Time Taken Comments Blood Pressure 127/76 09/30/2022 11:52 AM MARKETING DIRECT[employer]IV[employer] Pulse 113 09/30/2022 11:52 AM MARKETING [employer]IV[employer] Temperature - - Respiratory Rate - - Oxygen Saturation - - Inhaled Oxygen Concentration - - Weight 64.4 kg (142 lb) 09/30/2022 11:52 AM [employer]IV[employer] Height 162.6 cm (5' 4 ) 09/30/2022 11:52 AM MARKETING DIRECT[employer]IV[employer] Body Mass Index 24.37 09/30/2022 11:52 AM MARKETING DIRECT[employer]IV[employer] Plan of Treatment Not on file Insurance Care Teams Lead Material Handler Relationship Specialty Start Date End Date Kishan Doshi MD [address] [facility] [address] [place] [address] PCP - General Internal Medicine 10/23/20
--- OUTSIDE RECORDS SUMMARY | 2025-02-16 08:34 | XMS_ITS | Clinical Summary ---
Author Organization [facility] Address [address] [facility] [place] [address] Care Team Providers Care News Camera Operator Name Role Phone Kishan Doshi MD Primary Care Provider [phone] Source Comments [facility],non-owned Affiliates and Associated Physician Practices is amultiple site organization consisting of ambulatory clinics and hospital sitesin [place], [place], [place] and [place]. This disclosure is being madepursuant to the Care Everywhere program and may not contain all information available regarding this patient. Last updated 18.[facility] Flypaper Social History Tobacco Use Types Packs/Day Years Used Date Smoking Tobacco: Never Assessed Sex and Gender Information Value Date Recorded Sex Assigned at Not on file Gender Identity Not on file Sexual Orientation Not on file Plan of Treatment Health Maintenance Due Date Last Done Comments LIPID TESTING 1981 MAMMOGRAM 1981 PAP SMEAR 1981 HIV SCREENING 1996 HEPATITIS C SCREENING 02/25/1999 DTAP/TDAP/TD VACCINES (1 - Tdap) 2000 HEPATITIS B VACCINE (1 of 3 - 19+ 3-dose series) 2000 COVID-19 VACCINE (2023-2 5 season) 2024 INFLUENZA VACCINE (#1) 2024 DEPRESSION SCREENING 11/22/2024 ZOSTER VACCINE (1 of 2) 2031 HIB VACCINE Aged Out No longer eligi ble based on patient's age to complete this topic HPV VACCINE Aged Out No longer eligi ble based on patient's age to complete this topic MENINGOCOCCAL (Group B) VACC INE SHARED DECISION-MAKING Aged Out No longer eligibl e based on patient's age to complete this topic MENINGOCOCCAL GROUPS A/C/Y/W VACCINE Aged Out No longer eligible b ased on patient's age to complete this topic PNEUMOCOCCAL VACCINE Aged Out No long er eligible based on patient's age to complete this topic Insurance Payer Benefit Plan / Group Subscriber ID Effective Dates Phone Address Type [facility] MEDICAID [id number] Effective for all dates [address] [place] [address] Medicaid Managed Care SELF PAY NO INSURANCE SELF PAY NO INSURANCE Effective for all dates [facility] [place] Self Pay [facility] MEDICAID [id number] Effective for all dates [address] [place] [address] Medicaid Managed Care SELF PAY NO INSURANCE SELF PAY NO INSURANCE Effective for all dates [facility] [place] Self Pay [facility] MEDICAID [id number] Effective for all dates [address] [place] [address] Medicaid Managed Care SELF PAY NO INSURANCE SELF PAY NO INSURANCE Effective for all dates . [place] Self Pay [facility] MEDICAID [id number] Effective for all dates [address] [place] [address] Medicaid Managed Care SELF PAY NO INSURANCE SELF PAY NO INSURANCE Effective for all dates [facility], [place] Self Pay [facility] MEDICAID [id number] Effective for all dates [address] [place] [address] Medicaid Managed Care SELF PAY NO INSURANCE SELF PAY NO INSURANCE Effective for all dates [facility] [place] Self Pay [facility] MEDICAID [id number] Effective for all dates [address] [place] [address] Medicaid Managed Care SELF PAY NO INSURANCE SELF PAY NO INSURANCE Effective for all dates [facility] [place] Self Pay [facility] MEDICAID [id number] Effective for all dates [address] [place] [address] Medicaid Managed Care SELF PAY NO INSURANCE SELF PAY NO INSURANCE Effective for all dates [facility], [place] Self Pay [employer] 11/22/2014-Pres ent [address] [place] [address] PPO Care Teams News Camera Operator Relationship Specialty Start Date End Date Kishan Doshi MD PCP - General 08/18/18
--- OUTSIDE RECORDS SUMMARY | 2025-02-16 08:34 | XMS_ITS | Encounter Summary ---
Author Organization [facility] Address [address] [place] [address] Care Team Providers Care Drum Sander Name Role Phone Kishan Doshi MD Primary Care Provider [phone] Encounter Details Date Type Department Care Team (Late st Contact Info) Description 08/18/2018 Lab Requisition [facility] [address] [place] [id number] Vitaly Bryson MD [address] [place] [address] Social History Tobacco Use Types Packs/Day Years Used Date Smoking Tobacco: Never Assessed Sex and Gender Information Value Date Recorded Sex Assigned at Not on file Gender Identity Not on file Sexual Orientation Not on file documented as of this encounter Plan of Treatment Not on file documented as of this encounter Procedures Procedure Name Priority Date/Time Associated Diagnosis Comments DERMATOPATHOLOGY Routine 08/17/2018 12:0 0 AM CDT documented in this encounter Results * DERMATOPATHOLOGY (08/17/2018 12:00 AM CDT) Case Report Dermatopathology Report Case: [id number] Authorizing Provider: Vitaly Bryson MD Collected: 08/17/2018 12:00 AM Pathologist: Josi Hill MD Received: 08/18/2018 11:52 AM Specimens: A) - Skin, right ala B) - Skin, RUQ abd under breast C) - Skin, right inf med buttock 8 10:28 AM CDT DERMATOPATHOLOGY LABORATORY Amended Report Gross description for specimen C changed from shave to punch. 10:28 AM CDT DERMATOPATHOLOGY LABORATORY Final Diagnosis Specimen A. SKIN, right ala: ANGIOFIBROMA (FIBROUS PAPULE) (D21.0) Specimen B. SKIN, RUQ abd under breast: COMPOUND MELANOCYTIC NEVUS (D22.5) Specimen C. SKIN, right inf med buttock: DERMATOFIBROMA (D23.9) 10:28 AM [facility] DERMATOPATHOLOGY [facility]ORATORY Amendment electronically signed by Josi Hill MD on 09/01/2018 at 10:28 AM Clinical History A: R/O FDN. B: R/O dys nevus. C: R/O DF. 10:28 AM [facility] DERMATOPATHOLOGY LABORATORY Gross Description Specimen A: Received is one formalin filled container labeled with the patient's name and designated right ala. The specimen consists of a shave biopsy measuring [id number]. Jar 0. Specimen B: Received is one formalin filled container labeled with the patient's name and designated RUQ abd under breast. The specimen consists of a shave (2 pieces) biopsy measuring [id number], 1h2v7vv. Jar 0. Specimen C: Received is one formalin filled container labeled with the patient's name and designated right inf med buttock. The specimen consists of a punch biopsy measuring [id number], bisected. Jar 0. 10:28 AM [facility] DERMATOPATHOLOGY LABORATORY Microscopic Description Specimen A. SKIN, right ala: This dome-shaped lesion contains dilated blood vessels, coarse collagen bundles, and stellate fibroblasts. Specimen B. SKIN, RUQ abd under breast: There are nests of melanocytes at the dermal-epidermal junction and within the dermis. Specimen C. SKIN, right inf med buttock: There is epidermal hyperplasia. Within the dermis, there are fibrohistiocytic cells in haphazard array among coarse collagen bundles. 10:28 AM [facility] DERMATOPATHOLOGY LABORATORY Disclaimer An external and internal positive and negative controls are appropriate for the histochemical, immunohistochemical and immunofluorescence stain(s) in this case (if any), except where stated explicitly. The performance characteristics of the stain(s) cited in this report were developed and its performance characteristic determined by the Dermatopathology Laboratory at [facility]. These tests need not be, and therefore are not, approved by the [place] Food and Drug Administration. The tests are used for clinical purposes. Billing Codes Specimen Charges Stain Charges 62780 65315 40200 1 1 1 8 10:28 AM CDT DERMATOPATHOLOGY LABORATORY Embedded Images 8 10:28 AM CDT DERMATOPATHOLOGY LABORATORY Pathology/Cytology TISSUE SPECIMEN FROM SKIN / Unknown 08/17/2018 08/18/2018 11:52 AM CDT Miscellaneous samples (specimen) TISSUE SPECIMEN FROM SKIN / Unknown 08/17/2018 08/18/2018 11:52 AM CDT Miscellaneous samples (specimen) TISSUE SPECIMEN FROM SKIN / Unknown 08/17/2018 08/18/2018 11:52 AM CDT Vitaly Bryson MD LAB - PATHOLOGY/CYTO LOGY ORDERABLES DERMATOPATHOLOGY LABORATORY [facility] - Department of Dermatology [address] [place] [address] [address] [phone] documented in this encounter Visit Diagnoses Not on filedocumented in this encounter Care Teams Drum Sander Relationship Specialty Start Date End Date Kishan Doshi MD PCP - General 08/18/18 documented as of this encounter
--- OUTSIDE RECORDS SUMMARY | 2025-02-16 08:34 | XMS_ITS | Data Portability ---
Author Organization [facility], Main Office Address [address] [place] [address] Assessment No assessment recorded. Plan of Treatment Reminders Order Date Submit Date Provider Last Modified By Organization Details Last Modified Time Details Appointments None recorded. Lab CBC w/ auto diff 2023 024 [facility] Outpatient Lab, [address] [place], [address], 4 17:54:41 hepatic function panel, serum 2023 024 [facility] Out[facility], [address] [place], [address], 4 18:15:55 amylase + lipase, serum [email or web address] [place] [address] Outpatient Lab, [address] [place], [address], 4 15:12:04 CBC w/ auto diff 2023 024 [facility], [address] [place], [address], 4 13:49:32 CMP, serum or plasma 2023 024 [facility] Out[facility], [address] [place], [address], 4 13:36:18 lipase, serum or plasma 2023 024 [facility] Out[facility], [address] [place], [address], 4 13:36:21 amylase, serum or plasma 2023 024 [facility] - Outpatient Lab, [address] [place], [address], 4 13:36:23 lipid panel, serum 2023 024 [facility] - Outpatient Lab, [address] [place], [address], 4 13:36:28 Referral None recorded. Procedures None recorded. Surgeries None recorded. Imaging None recorded. Medication Orders pantoprazol e 40 mg tablet,phillip yed release [address]/Pharmacy #[id number], [address] [place], [address], 4 11:08:08 methylpredn isolone 4 mg tablets in a dose pack [address]/Pharmacy #[id number], [address] [place], [address], 4 15:19:31 baclofen 10 mg tablet 2022 023 [email or web address] [facility]/Pharmacy #[id number], [address] [place], [address], 4 10:50:09 Patient TargetsNo targets recorded. Patient Instructions Encounter Date Encounter Id Patient Instructions Last Modified By Organization Details Last Modified Time 10/08/2023 [id number] Low back strain will continue with current Rx will start on a Medrol Dosepak some baclofen. Instructed to take it easy with Cards any lifting or bending or twisting for the next week to 10 days. Continue to apply ice or heat to the area. Even alternating ice and heat. Continue any of the medications the same way. Portions of the record may have been created with voice recognition software. Occasional wrong-word or s ound-a-like substitutions may have occurred due to the inherent limitations of voice recognition software. Read the chart carefully and recognize, using context, where substitutions have occurred. [email or web address] Not available 10/08/2023 11:04:22 12/27/2023 [id number] Abdominal pain r ule out possible gallbladder versus peptic disease. Will cover with some pantoprazole 40 mg once daily obtain ultrasound of the gallbladder. Check a lipase, amylase, CBC, lipid, thyroid. Continue on current Rx at the in currently. Follow-up in regular scheduled appointment in March. Portions of the record may have been created with voice recognition software. Occasional wrong-word or s ound-a-like substitutions may have occurred due to the inherent limitations of voice recognition software. Read the chart carefully and recognize, using context, where substitutions have occurred. 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 Plan is to institute on the cholestyramine. Will try to get blood work consisting of a hepatic panel along with a CBC and lipase and amylase. Keep Appt: Wed 09:50 AM [place] Portions of the record may have been created with voice recognition software. Occasional wrong-word or s ound-a-like substitutions may have occurred due to the inherent limitations of voice recognition software. Read the chart carefully and recognize, using context, where substitutions have occurred. [email or web address] Not available 02/28/2024 15:40:56 04/04/2024 [id number] risk assessment* [email or web address] Not availabl e 04/04/2024 11:22:32 INFLUENZA VACCIN E Recommended today, but patient declined Ordered Pa tient will get at local pharmacy/health department TD/TDAP Recommended today, patient declined Ordered Pa tient will get at local pharmacy/health department PNEUMONIA VACCINE Ordered Recommended today, patient declined Patient will get at local pharmacy/health department Recommen ded at age 66 SHINGLES Not indicated MAMMOGRAM: Last Mammogram No screening necessary patient is up to date DEXA SCAN Recommended today, but patient declined Ordered No screening indicated CERVICAL SCREENING/PELVIC EXAMINATION COLORECTAL SCREENING: Last Colonoscopy No screening necessary patient is up to date DEPRESSION SCREENING Negative BMI Overweight Appropri ate NUTRITION Continue healthy eating & exercise PHYSICAL ACTIVITY Appropriate physical activity VISION ALCOHOL USE No alcohol use TOBACCO USE non smoker LUNG CANCER SCREENING Non Smoker-not indicated SEXUALLY ACTIVE HEPATITIS C SCREENING Not indicated GLUCOSE SCREENING LIPID SCREENING Not available 04/04/2024 11:15:30 Adult health evaluation risk assessment stable. Is up-to-date on her apparently on her mammography as well as colonoscopy since there is a family history of colon cancer. Otherwise is doing well no need for any additional blood work at this time. Scheduled follow-up with the gi physician. Follow-up in six months with us. Next Appointment: 6 Months Approximate Date: 10/01/2024 Portions of the record may have been created with voice recognition software. Occasional wrong-word or s ound-a-like substitutions may have occurred due to the inherent limitations of voice recognition software. Read the chart carefully and recognize, using context, where substitutions have occurred. [email or web address] Not available 04/04/2024 11:22:13 10/10/2024 [id number] Follow-up for C diff infection clinically stable. No fever, chills or other constitutional or systemic symptomatology. Instructed to finish out any residual medication. Follow-up in six months Follow Up: 6 Months Approximate Date: 04/08/2025 Created: Jose Guillen M.D. 10.10.2024 10:20 AM Portions of the record may have been created with voice recognition software. Occasional wrong-word or s ound-a-like substitutions may have occurred due to the inherent limitations of voice recognition software. Read the chart carefully and recognize, using context, where substitutions have occurred. [email or web address] Not available 10/10/2024 11:20:17 Reason for Referral None Reported. Results Created Date Observation Date Name Description Value Unit Range Abnormal Flag Note LastModifiedBy Organization Detail LastModifiedTime 12/31/19 24 12/31/2023 COMPR EHENS MALLORY METAB OLIC PANEL sodium 138 mmol/ L 137-14 5 Not Available [facility] (Lab) [address] [place], [address], 12/31/2023 13:36:18 12/31/19 24 12/31/2023 COMPR EHENS MALLORY METAB OLIC PANEL potassium 4.0 mmol/ L 3.5-5. 1 Not Available [facility] (Lab) [address] [place], [address], 12/31/2023 13:36:18 12/31/19 24 12/31/2023 COMPR EHENS MALLORY METAB OLIC PANEL chloride 107 mmol/ L 98-107 Not Available [facility] (Lab) [address] [place], [address], 12/31/2023 13:36:18 12/31/19 24 12/31/2023 COMPR EHENS MALLORY METAB OLIC PANEL carbon dioxide 30 mmol/ L 22-30 Not Available [facility] (Lab) [address] [place], [address], 12/31/2023 13:36:18 12/31/19 24 12/31/2023 COMPR EHENS MALLORY METAB OLIC PANEL anion gap 5.0 mmol/ L 14-22 low Not Available [facility] (Lab) [address] [place], [address], 12/31/2023 13:36:18 12/31/19 24 12/31/2023 COMPR EHENS MALLORY METAB OLIC PANEL glucose 79 mg/dL 70-99 Not Available [facility] (Lab) [address] [place], [address], 12/31/2023 13:36:18 12/31/19 24 12/31/2023 COMPR EHENS MALLORY METAB OLIC PANEL BUN 16 mg/dL 8-19 Not Available [facility] (Lab) [address] [place], [address], 12/31/2023 13:36:18 12/31/19 24 12/31/2023 COMPR EHENS MALLORY METAB OLIC PANEL creatinine 0.72 mg/dL 0.66-1 .25 Not Available [facility] (Lab) [address] [place], [address], 12/31/2023 13:36:18 12/31/19 24 12/31/2023 COMPR EHENS MALLORY METAB OLIC PANEL GFR >60 Refer ence Range : [place] ge GFR Healt hy Adult : >60 mL/mi n/1.7 3 m2 Chron ic Kidne y Disea se: 15-60 mL/mi n/1.7 3 m2 Kidne y Failu re: <15/m L/min /1.73 m2 www.n iddk. nih.g ov The MDRD study equat ion has not been valid ated in child jitendra <18 years of age; pregn ant women ; the elder ly >85 years of age; or in some racia l or ethni c subgr oups, such as Hispa nics. Outsi de the valid ated maciel eters , estim ated GFR is less accur ate, requi ring clini jina judgm ent on a case- by-ca se basis . Clini jina inter preta tion for other races and ages must be made by the clini jarocho. The MDRD study equat ion has not been valid ated for the evalu ation of serum creat inine relat ed to nutri leyla l statu s or medic ation usage . For perso ns <18 years of age, a pedia tric GFR calcu lator is avail able on the [facility] websi te: https ://toney w.kevin miranda.o jhoana/pr liyah glassal s/kdo qi/gf r_cal culat or Not Available [facility] (Lab) [address] [place], [address], 12/31/2023 13:36:18 12/31/19 24 12/31/2023 COMPR EHENS MALLORY METAB OLIC PANEL alkaline phosphatase 38 U/L 38-126 Not Available [facility] (Lab) [address] [place], [address], 12/31/2023 13:36:18 12/31/19 24 12/31/2023 COMPR EHENS MALLORY METAB OLIC PANEL alanine aminotransfe rase 14 U/L 0-35 Not Available [facility] (Lab) [address] [place], [address], 12/31/2023 13:36:18 12/31/19 24 12/31/2023 COMPR EHENS MALLORY METAB OLIC PANEL aspartate aminotransfe rase 23 U/L 15-37 Not Available [facility] (Lab) [address] [place], [address], 12/31/2023 13:36:18 12/31/19 24 12/31/2023 COMPR EHENS MALLORY METAB OLIC PANEL bilirubin, total 0.50 mg/dL 0.20-1 .30 Not Available [facility] (Lab) [address] [place], [address], 12/31/2023 13:36:18 12/31/19 24 12/31/2023 COMPR EHENS MALLORY METAB OLIC PANEL calcium 8.9 mg/dL 8.4-10 .2 Not Available [facility] (Lab) [address] [place], [address], 12/31/2023 13:36:18 12/31/19 24 12/31/2023 COMPR EHENS MALLORY METAB OLIC PANEL total protein 6.0 g/dL 6.3-8. 2 low Not Available [facility] (Lab) [address] [place], [address], 12/31/2023 13:36:18 12/31/19 24 12/31/2023 COMPR EHENS MALLORY METAB OLIC PANEL albumin 3.4 g/dL 3.4-5. 0 Not Available [facility] (Lab) [address] [place], [address], 12/31/2023 13:36:18 12/31/19 24 12/31/2023 COMPR EHENS MALLORY METAB OLIC PANEL globulin 2.6 g/dL 2.6-4. 2 Not Available [facility] (Lab) [address] [place], [address], 12/31/2023 13:36:18 12/31/19 24 12/31/2023 COMPR EHENS MALLORY METAB OLIC PANEL A/G ratio 1.3 ratio 1.0-2. 0 Not Available [facility] (Lab) [address] [place], [address], 12/31/2023 13:36:18 12/31/19 24 12/31/2023 LIPAS E SERUM lipase 76 U/L 23-300 Not Available [facility] (Lab) [address] [place], [address], 12/31/2023 13:36:21 12/31/19 24 12/31/2023 AMYLA SE SERUM amylase 63 U/L 30-110 Not Available [facility] (Lab) [address] [place], [address], 12/31/2023 13:36:23 12/31/19 24 12/31/2023 LIPID PANEL cholesterol 174 mg/dL 140-19 9 NIH JORGE NSUS RECOM MENDA TION FOR ZAC STERO L: ADULT CHILD LOW RISK: <200 <170 BORDE RLINE : <200- 239 ----- HIGH RISK: >240 >200 Not Available [facility] (Lab) [address] [place], [address], 12/31/2023 13:36:28 12/31/19 24 12/31/2023 LIPID PANEL triglyceride s 75 mg/dL 0-150 NIH JORGE NSUS REPOR T RECOM MENDA TION FOR TRIGL YCERI CIELO: ADULT CHILD LOW RISK: <150 ----- BODER LINE: 150-1 99 ----- HIGH RISK: >200 ----- Not Available [facility] (Lab) [address] [place], [address], 12/31/2023 13:36:28 12/31/19 24 12/31/2023 LIPID PANEL HDL cholesterol 65 mg/dL 40- Not Available [facility] (Lab) [address] [place], [address], 12/31/2023 13:36:28 12/31/19 24 12/31/2023 LIPID PANEL LDL cholesterol, calculated 94 mg/dL 0-130 NIH JORGE NSUS REPOR T RECOM MENDA TIONS FOR LDL: ADULT CHILD LOW RISK <130 <110 (OPTI MAL LDL) <100 ----- BORDE RLINE : 130-1 59 ----- HIGH RISK: >160 >130 A TRIGL YCERI DE RESUL T >400 INVAL IDATE S THE CALCU LATIO N FOR LDL FRACT IONAT ION - THE LDL RESUL T WILL NOT BE REPOR BHARATHI. Not Available [facility] (Lab) [address] [place], [address], 12/31/2023 13:36:28 12/31/19 24 12/31/2023 CBC/C OMPLE TE BLD COUNT W/DIF F white blood cells 3.9 x10'3 /uL 4.2-10 .8 low Not Available [facility] (Lab) [address] [place], [address], 12/31/2023 13:49:32 12/31/19 24 12/31/2023 CBC/C OMPLE TE BLD COUNT W/DIF F red blood cells 3.81 x10'6 /uL 3.80-5 .20 Not Available [facility] (Lab) [address] [place], [address], 12/31/2023 13:49:32 12/31/19 24 12/31/2023 CBC/C OMPLE TE BLD COUNT W/DIF F hemoglobin 10.7 g/dL 12.0-1 5.6 low Not Available [facility] (Lab) [address] [place], [address], 12/31/2023 13:49:32 12/31/19 24 12/31/2023 CBC/C OMPLE TE BLD COUNT W/DIF F hematocrit 35.1 % 35.7-4 5.7 low Not Available [facility] (Lab) [address] [place], [address], 12/31/2023 13:49:32 12/31/19 24 12/31/2023 CBC/C OMPLE TE BLD COUNT W/DIF F mean red cell volume 92.1 fL 82.0-9 9.0 Not Available [facility] (Lab) [address] [place], [address], 12/31/2023 13:49:32 12/31/19 24 12/31/2023 CBC/C OMPLE TE BLD COUNT W/DIF F mean red cell hemoglobin 28.1 pg 27.0-3 3.0 Not Available [facility] (Lab) [address] [place], [address], 12/31/2023 13:49:32 12/31/19 24 12/31/2023 CBC/C OMPLE TE BLD COUNT W/DIF F mean RBC HGB concentratio n 30.5 g/dL 31.0-3 6.0 low Not Available [facility] (Lab) [address] [place], [address], 12/31/2023 13:49:32 12/31/19 24 12/31/2023 CBC/C OMPLE TE BLD COUNT W/DIF F red cell distribution width 12.7 % 11.8-1 5.5 Not Available [facility] (Lab) [address] [place], [address], 12/31/2023 13:49:32 12/31/19 24 12/31/2023 CBC/C OMPLE TE BLD COUNT W/DIF F platelets 259 x10'3 /uL 150-40 0 Not Available [facility] (Lab) [address] [place], [address], 12/31/2023 13:49:32 12/31/19 24 12/31/2023 CBC/C OMPLE TE BLD COUNT W/DIF F mean platelet volume 10.3 fL 9.0-12 .4 Not Available [facility] (Lab) [address] [place], [address], 12/31/2023 13:49:32 12/31/19 24 12/31/2023 CBC/C OMPLE TE BLD COUNT W/DIF F neutrophils 43.0 % 39.0-7 2.0 Not Available [facility] (Lab) [address] [place], [address], 12/31/2023 13:49:32 12/31/19 24 12/31/2023 CBC/C OMPLE TE BLD COUNT W/DIF F lymphocytes 39.4 % 16.0-4 7.0 Not Available [facility] (Lab) [address] [place], [address], 12/31/2023 13:49:32 12/31/19 24 12/31/2023 CBC/C OMPLE TE BLD COUNT W/DIF F monocytes 11.3 % 5.0-12 .0 Not Available [facility] (Lab) [address] [place], [address], 12/31/2023 13:49:32 12/31/19 24 12/31/2023 CBC/C OMPLE TE BLD COUNT W/DIF F eosinophils 5.2 % 1.0-7. 0 Not Available [facility] (Lab) [address] [place], [address], 12/31/2023 13:49:32 12/31/19 24 12/31/2023 CBC/C OMPLE TE BLD COUNT W/DIF F basophils 0.8 % 0.0-2. 0 Not Available [facility] (Lab) [address] [place], [address], 12/31/2023 13:49:32 12/31/19 24 12/31/2023 CBC/C OMPLE TE BLD COUNT W/DIF F immature granulocytes 0.3 % 0.00-0 .50 Not Available [facility] (Lab) [address] [place], [address], 12/31/2023 13:49:32 12/31/19 24 12/31/2023 CBC/C OMPLE TE BLD COUNT W/DIF F neutrophils, absolute count 1.67 x10'3 /uL 1.5-8. 0 Not Available [facility] (Lab) [address] [place], [address], 12/31/2023 13:49:32 12/31/19 24 12/31/2023 CBC/C OMPLE TE BLD COUNT W/DIF F lymphocytes, absolute count 1.53 x10'3 /uL 1.07-3 .43 Not Available [facility] (Lab) [address] [place], [address], 12/31/2023 13:49:32 12/31/19 24 12/31/2023 CBC/C OMPLE TE BLD COUNT W/DIF F monocytes, absolute count 0.44 x10'3 /uL 0.29-0 .99 Not Available [facility] (Lab) [address] [place], [address], 12/31/2023 13:49:32 12/31/19 24 12/31/2023 CBC/C OMPLE TE BLD COUNT W/DIF F eosinophils, absolute count 0.20 x10'3 /uL 0.02-0 .53 Not Available [facility] (Lab) [address] [place], [address], 12/31/2023 13:49:32 12/31/19 24 12/31/2023 CBC/C OMPLE TE BLD COUNT W/DIF F basophils, absolute count 0.03 x10'3 /uL 0.01-0 .08 Not Available [facility] (Lab) [address] [place], [address], 12/31/2023 13:49:32 12/31/19 24 12/31/2023 CBC/C OMPLE TE BLD COUNT W/DIF F immature granulocytes ,absolute 0.01 x10'3 /uL 0.00-0 .05 Not Available [facility] (Lab) [address] [place], [address], 12/31/2023 13:49:32 12/31/19 24 12/31/2023 CBC/C OMPLE TE BLD COUNT W/DIF F nucleated red blood cells 0.0 % -0 Not Available [facility] (Lab) [address] [place], [address], 12/31/2023 13:49:32 12/31/19 24 12/31/2023 CBC/C OMPLE TE BLD COUNT W/DIF F NRBC# 0.00 x10'3 /uL Not Available [facility] (Lab) [address] [place], [address], 12/31/2023 13:49:32 02/28/20 24 02/28/2024 CBC/C OMPLE TE BLD COUNT W/DIF F white blood cells 4.7 x10'3 /uL 4.2-10 .8 Not Available [facility] (Lab) [address] [place], [address], 02/28/2024 17:54:41 02/28/20 24 02/28/2024 CBC/C OMPLE TE BLD COUNT W/DIF F red blood cells 3.92 x10'6 /uL 3.80-5 .20 Not Available [facility] (Lab) [address] [place], [address], 02/28/2024 17:54:41 02/28/20 24 02/28/2024 CBC/C OMPLE TE BLD COUNT W/DIF F hemoglobin 11.1 g/dL 12.0-1 5.6 low Not Available [facility] (Lab) [address] [place], [address], 02/28/2024 17:54:41 02/28/20 24 02/28/2024 CBC/C OMPLE TE BLD COUNT W/DIF F hematocrit 35.4 % 35.7-4 5.7 low Not Available [facility] (Lab) [address] [place], [address], 02/28/2024 17:54:41 02/28/20 24 02/28/2024 CBC/C OMPLE TE BLD COUNT W/DIF F mean red cell volume 90.3 fL 82.0-9 9.0 Not Available [facility] (Lab) [address] [place], [address], 02/28/2024 17:54:41 02/28/20 24 02/28/2024 CBC/C OMPLE TE BLD COUNT W/DIF F mean red cell hemoglobin 28.3 pg 27.0-3 3.0 Not Available [facility] (Lab) [address] [place], [address], 02/28/2024 17:54:41 02/28/20 24 02/28/2024 CBC/C OMPLE TE BLD COUNT W/DIF F mean RBC HGB concentratio n 31.4 g/dL 31.0-3 6.0 Not Available [facility] (Lab) [address] [place], [address], 02/28/2024 17:54:41 02/28/20 24 02/28/2024 CBC/C OMPLE TE BLD COUNT W/DIF F red cell distribution width 14.0 % 11.8-1 5.5 Not Available [facility] (Lab) [address] [place], [address], 02/28/2024 17:54:41 02/28/20 24 02/28/2024 CBC/C OMPLE TE BLD COUNT W/DIF F platelets 287 x10'3 /uL 150-40 0 Not Available [facility] (Lab) [address] [place], [address], 02/28/2024 17:54:41 02/28/20 24 02/28/2024 CBC/C OMPLE TE BLD COUNT W/DIF F mean platelet volume 10.4 fL 9.0-12 .4 Not Available [facility] (Lab) [address] [place], [address], 02/28/2024 17:54:41 02/28/20 24 02/28/2024 CBC/C OMPLE TE BLD COUNT W/DIF F neutrophils 53.9 % 39.0-7 2.0 Not Available [facility] (Lab) [address] [place], [address], 02/28/2024 17:54:41 02/28/20 24 02/28/2024 CBC/C OMPLE TE BLD COUNT W/DIF F lymphocytes 31.1 % 16.0-4 7.0 Not Available [facility] (Lab) [address] [place], [address], 02/28/2024 17:54:41 02/28/20 24 02/28/2024 CBC/C OMPLE TE BLD COUNT W/DIF F monocytes 7.4 % 5.0-12 .0 Not Available [facility] (Lab) [address] [place], [address], 02/28/2024 17:54:41 02/28/20 24 02/28/2024 CBC/C OMPLE TE BLD COUNT W/DIF F eosinophils 6.8 % 1.0-7. 0 Not Available [facility] (Lab) [address] [place], [address], 02/28/2024 17:54:41 02/28/20 24 02/28/2024 CBC/C OMPLE TE BLD COUNT W/DIF F basophils 0.6 % 0.0-2. 0 Not Available [facility] (Lab) [address] [place], [address], 02/28/2024 17:54:41 02/28/20 24 02/28/2024 CBC/C OMPLE TE BLD COUNT W/DIF F immature granulocytes 0.2 % 0.00-0 .50 Not Available [facility] (Lab) [address] [place], [address], 02/28/2024 17:54:41 02/28/20 24 02/28/2024 CBC/C OMPLE TE BLD COUNT W/DIF F neutrophils, absolute count 2.53 x10'3 /uL 1.5-8. 0 Not Available [facility] (Lab) [address] [place], [address], 02/28/2024 17:54:41 02/28/20 24 02/28/2024 CBC/C OMPLE TE BLD COUNT W/DIF F lymphocytes, absolute count 1.46 x10'3 /uL 1.07-3 .43 Not Available [facility] (Lab) [address] [place], [address], 02/28/2024 17:54:41 02/28/20 24 02/28/2024 CBC/C OMPLE TE BLD COUNT W/DIF F monocytes, absolute count 0.35 x10'3 /uL 0.29-0 .99 Not Available [facility] (Lab) [address] [place], [address], 02/28/2024 17:54:41 02/28/20 24 02/28/2024 CBC/C OMPLE TE BLD COUNT W/DIF F eosinophils, absolute count 0.32 x10'3 /uL 0.02-0 .53 Not Available [facility] (Lab) [address] [place], [address], 02/28/2024 17:54:41 02/28/20 24 02/28/2024 CBC/C OMPLE TE BLD COUNT W/DIF F basophils, absolute count 0.03 x10'3 /uL 0.01-0 .08 Not Available [facility] (Lab) [address] [place], [address], 02/28/2024 17:54:41 02/28/20 24 02/28/2024 CBC/C OMPLE TE BLD COUNT W/DIF F immature granulocytes ,absolute 0.01 x10'3 /uL 0.00-0 .05 Not Available [facility] (Lab) [address] [place], [address], 02/28/2024 17:54:41 02/28/20 24 02/28/2024 CBC/C OMPLE TE BLD COUNT W/DIF F nucleated red blood cells 0.0 % -0 Not Available [facility] (Lab) [address] [place], [address], 02/28/2024 17:54:41 02/28/20 24 02/28/2024 CBC/C OMPLE TE BLD COUNT W/DIF F NRBC# 0.00 x10'3 /uL Not Available [facility] (Lab) [address] [place], [address], 02/28/2024 17:54:41 02/28/20 24 02/28/2024 HEPAT IC/LI CYN PANEL alkaline phosphatase 48 U/L 38-126 Not Available [facility] (Lab) [address] [place], [address], 02/28/2024 18:15:55 02/28/20 24 02/28/2024 HEPAT IC/LI CYN PANEL alanine aminotransfe rase 12 U/L 0-35 Not Available [facility] (Lab) [address] [place], [address], 02/28/2024 18:15:55 02/28/20 24 02/28/2024 HEPAT IC/LI CYN PANEL aspartate aminotransfe rase 23 U/L 15-37 Not Available [facility] (Lab) [address] [place], [address], 02/28/2024 18:15:55 02/28/20 24 02/28/2024 HEPAT IC/LI CYN PANEL bilirubin, total 0.40 mg/dL 0.20-1 .30 Not Available [facility] (Lab) [address] [place], [address], 02/28/2024 18:15:55 02/28/20 24 02/28/2024 HEPAT IC/LI CYN PANEL bilirubin, conjugated (direct) 0.00 mg/dL 0.00-0 .30 Not Available [facility] (Lab) [address] [place], [address], 02/28/2024 18:15:55 02/28/20 24 02/28/2024 HEPAT IC/LI CYN PANEL biliurubin,u ncong. (indirect) 0.20 mg/dL 0.00-1 .1 Not Available [facility] (Lab) [address] [place], [address], 02/28/2024 18:15:55 02/28/20 24 02/28/2024 HEPAT IC/LI CYN PANEL total protein 6.3 g/dL 6.3-8. 2 Not Available [facility] (Lab) [address] [place], [address], 02/28/2024 18:15:55 02/28/20 24 02/28/2024 HEPAT IC/LI CYN PANEL albumin 3.8 g/dL 3.4-5. 0 Not Available [facility] (Lab) [address] [place], [address], 02/28/2024 18:15:55 02/28/20 24 02/28/2024 HEPAT IC/LI CYN PANEL globulin 2.5 g/dL 2.6-4. 2 low Not Available [facility] (Lab) [address] [place], [address], 02/28/2024 18:15:55 02/28/20 24 02/28/2024 HEPAT IC/LI CYN PANEL A/G ratio 1.5 ratio 1.0-2. 0 Not Available [facility] (Lab) [address] [place], [address], 02/28/2024 18:15:55 02/28/20 24 02/28/2024 AMYLA SE SERUM amylase 67 U/L 30-110 Not Available [facility] (Lab) [address] [place], [address], 02/28/2024 18:15:59 02/28/20 24 02/28/2024 LIPAS E SERUM lipase 90 U/L 23-300 Not Available [facility] (Lab) [address] [place], [address], 02/28/2024 18:16:00 12/31/19 24 US, abdom en, limit ed [facility] [address] [place], [place] [id number] [phone] Patien t Name: BETTYE DIXON Access ion #: [id number] Sex: F : 1979 2 Dictat ed By: Billy Herrmann ms Attend ing Physic marifer: ARLET GUILLEN CE Orderi Physic marifer: ARLET GUILLEN CE Exam Date: 2023 07:43 AM Exam Name: US ABD/LT D/ORG/ UQ/GB Admitt ing Diagno sis(es ): INDICA TION: abdomi nal pain TECHNI QUE: Multip le real-t boogie sonogr aphic images were obtain ed of the right upper quadra nt. COMPAR IZABELLA: None. FINDIN GS: The liver demons trates homoge nous echote xture withou t focal mass lesion s. The liver measur es 17.5 cm. There is no intrah epatic or extrah epatic ductal dilata tion. The common duct measur es 0.3 cm. The gallbl adder contai ns multip le gallst ones, the larges t measur ing 1.7 cm. There is a fold in the gallbl adder. The gallbl adder wall measur es 0.2 cm and is within normal limits . The right kidney measur es 11.3 cm. The right kidney is normal in contou r, size, and shape. The echoge nicity is normal . There is no hydron ephros is. The pancre as is not well visual ized due to overly ing bowel gas. IMPRES LILY: 1. Cholel ithias is. No eviden ce of acute cholec ystiti s. Electr onical ly Signed by: Billy Herrmann ms at 2023 08:24: 09 AM Page [address] (Imaging) [address] [place], [address], 12/31/2023 09:29:29 04/12/20 24 04/12/2024 XR, abdom en No observ ation record ed. [address], [place], [address], 04/13/2024 07:46:41 04/21/20 24 04/21/2024 CT, abdom en + pelvi s, w/o contr ast No observ ation record ed. [address], [place], [address], 04/21/2024 12:29:52 Result Notes None recorded. Problems Name Problem SNOMED Code Status Onset Date Resolution Date Notes Provider Name and Address Organization Details Recorded Time Backache 667666963 Active Not Available [facility] 3 14:59:08 Mood swings 18857968 Active Not Available [facility] 3 14:59:08 Recurrent anxiety 333683074 Active Not Available [facility] 3 14:59:08 Insomnia 390359328 Active Not Available [facility] 3 14:59:08 Dysmenorrhea 860522332 Active Not Available [facility] 3 14:59:08 Frontal headache 989018472 Active Not Available [facility] 3 14:59:09 Abnormal findings on diagnostic imaging of breast 792318815 Active Not Available [facility] 3 14:59:09 Lesion of breast 577110207 Active Not Available [facility] 3 14:59:09 Depressive disorder 99768073 Active Not Available [facility] 3 14:59:09 Emotional impulsivity 06383559 Active Not Available [facility] 3 14:59:09 Pain of breast 47095690 Active Not Available [facility] 3 14:59:09 Opioid abuse 6927246 Active Not Available [facility] 3 14:59:09 depression 47520199 Active Not Available [facility] 3 14:59:09 Diarrhea 59389491 Active Not Available [facility] 3 14:59:09 Skin lesion 84920367 Active Not Available [facility] 3 14:59:09 Temporomandib ular joint disorder 38876500 Active 2022 Jose Guillen MD [address], [address], [place], [address] , [place] [facility] 3 15:26:37 Low back strain 098908583 Active 2022 Jose Guillen MD [address], [address], [place], [address] , [place] [facility] 3 11:03:22 Abdominal pain 90082924 Active 2023 Jose Guillen MD [address], [address], [place], [address] , [place] [facility] 4 12:31:44 Gallstone 279266653 Active 2023 Modesta Coyle CMA null, [place] [facility] 4 11:17:10 Acute sinusitis 54330098 Active 2023 Jose Guillen MD [address], [address], [place], [address] , [place] [facility] 4 16:12:36 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 2023 Jose Guillen MD [address], [address], [place], [address] , [place] [facility] 4 15:40:19 Candidiasis of vagina 29199460 Active 2023 Jose Guillen MD [address], [place], [address] , [place] [facility] 4 13:53:25 Acute urinary tract infection 446007315 Active 2023 Jose Guillen MD [address], [place], [address] , [place] [facility] 4 14:45:09 Acute bronchitis 74560188 Active 2023 Jose Guillen MD [address], [place], [address] , [place] [facility] 4 12:09:00 Low back pain 566060778 Active 2023 Jose Guillen MD [address], [place], [address] , [place] [facility] 4 11:47:08 Clostridioide s difficile infection 920101704 Active 2023 Jose Guillen MD [address], [place], [address] , [place] [facility] 4 11:16:45 Hemorrhoids 72154581 Active 2024 Jose Guillen MD [address], [place], [address] , [place] [facility] 5 14:37:57 Problem Notes None recorded. Procedures Surgical History None recorded. Imaging Results Imaging Date Name Status LastModified by [facility]iz [facility] Details LastModified Time 12/31/2023 US, abdomen, limited completed [facility] (Imaging) [address], [place], [address], 12/31/2023 09:29:29 04/12/2024 XR, abdomen completed [address] [place] [address] [address], [place], [address], 04/13/2024 07:46:41 04/21/2024 CT, abdomen + pelvis, w/o contrast completed [address], [place], [address], 04/21/2024 12:29:52 Procedure Notes None recorded. Medical Equipment None Reported. Allergies Allergen ID Allergen Name Allergen Category Reaction Reaction Severity Criticality Documentation Date Start Date Code Code System Note Provider Name and Address Organization Details Recorded Time 86308 naproxen medicatio n Not available Not available Not available 01/20/2023 7258 RxNorm Not Available [facility] 3 15:02:35 60293 ibuprofen medicatio n Not available Not available Not available 01/20/2023 5640 RxNorm Not Available [facility] 3 15:02:35 04773 Cipro medicatio n headache Not available unabletoasse 06/29/202462323 3 RxNorm Modesta Coyle CMA null, [place] [facility] 4 14:32:08 Medications Name Sig Start Date Stop Date Status Note LastModified by Organization Details LastModified Time cyclobenza dereje 10 mg tablet TAKE 1 TABLET BY MOUTH 3 TIMES A DAY 04/16 completed Not Available Not Available Not Available medroxypro gesterone 10 mg tablet 10/14 completed Not Available Not Available Not Available cefuroxime axetil 250 mg tablet 04/16 completed Not Available Not Available Not Available azithromyc in 250 mg tablet TAKE 2 TABLETS BY MOUTH TODAY, THEN TAKE 1 TABLET DAILY FOR 4 DAYS DIRECTED 10/10 completed Not Available Not Available Not Available fluconazol e 150 mg tablet TAKE 1 TABLET BY MOUTH EVERY DAY active Not Available Not Available No t Available benzonatat e 200 mg capsule Take 1 capsule 3 times a day by oral route. 10/10 completed Not Available Not Available Not Available hydrocodon e 5 mg-acetami nophen 325 mg tablet TAKE 1 TABLET BY MOUTH EVERY 6 HOURS NEEDED FOR PAIN 02/27 completed Not Available Not Available Not Available fluconazol e 200 mg tablet TAKE 1 TABLET BY MOUTH EVERY DAY X1 10/10 completed Not Available Not Available Not Available metronidaz ole 0.75 % (37.5 mg/5 gram) vaginal gel INSERT 1 APPLICAT ORFUL INTO VAGINA EVERY NIGHT AT BEDTIME INSERT VAGINALL Y AT BEDTIME FOR 5 NIGHTS 04/04 completed Not Available Not Available Not Available ondansetro n HCl 4 mg tablet 10/14 completed Not Available Not Available Not Available clobetasol 0.05 % topical cream APPLY TO AFFECTED AREA 3 TIMES A WEEK active Not Available Not Available No t Available metronidaz ole 500 mg tablet 500 MG ORALLY EVERY 8 HOURS FOR 10 DAYS 10/10 completed Not Available Not Available Not Available lidocaine HCl 2 % mucosal jelly active Not Available Not Available Not Available ciprofloxa christian 500 mg tablet 500 MG ORALLY EVERY 12 HOURS FOR 10 DAYS 10/10 completed Not Available Not Available Not Available omeprazole 40 mg capsule,de layed release TAKE 1 CAPSULE BY MOUTH TWICE A DAY 10/10 completed Not Available Not Available Not Available vancomycin 125 mg capsule TAKE 1 CAPSULE BY MOUTH EVERY 6 HOURS FOR 10 DAYS 10/10 completed Not Available Not Available Not Available hydrocorti sone 2.5 % topical cream with perineal applicator APPLY SPARINGL Y TO AFFECTED AREA 2 TO 4 TIMES A DAY active Not Available Not Available No t Available alprazolam 0.5 mg tablet TAKE 1 TABLET (0.5 MG TOTAL) BY MOUTH 4 (FOUR) TIMES A DAY NEEDED FOR ANXIETY. 10/08 completed Not Available Not Available Not Available alprazolam 0.25 mg tablet take one tablet PO up to 3 times per week. PRN 10/14 completed Not Available Not Available Not Available citalopram 20 mg tablet Take 1 tablet every day by oral route. active Not Available Not Available No t Available metoclopra mide 5 mg tablet 5 MG ORALLY BEFORE BREAKFAS T 10/10 completed Not Available Not Available Not Available trazodone 100 mg tablet TK 1 T PO QHS 11/30 completed Not Available Not Available Not Available meclizine 25 mg tablet 10/14 completed Not Available Not Available Not Available phenazopyr idine 100 mg tablet 04/16 completed Not Available Not Available Not Available baclofen 10 mg tablet TAKE 1 TABLET 3 TIMES A DAY BY ORAL ROUTE. 10/10 completed Not Available Not Available Not Available hydrocodon e 7.5 mg-acetami nophen 325 mg tablet TK 1 T PO Q 8 H PRN 11/30 completed Not Available Not Available Not Available cephalexin 500 mg capsule 10/14 completed Not Available Not Available Not Available pantoprazo le 40 mg tablet,del ayed release TAKE 1 TABLET BY MOUTH EVERY DAY 04/04 completed Not Available Not Available Not Available hydrocodon e 5 mg-acetami nophen 500 mg tablet active Not Available Not Available No t Available amoxicilli n 400 mg/5 mL oral suspension 04/16 completed Not Available Not Available Not Available alprazolam 2 mg tablet TK 1 T PO UPON ARRIVAL TO OFFICE active Not Available Not Available No t Available oxycodone- acetaminop hen 7.5 mg-325 mg tablet 10/14 completed Not Available Not Available Not Available zolpidem 10 mg tablet active Not Available Not Available Not Available methylpred nisolone 4 mg tablets in a dose pack TAKE 6 TABLETS ON DAY 1 DIRECTED ON PACKAGE AND DECREASE BY 1 TAB EACH DAY FOR A TOTAL OF 6 DAYS 02/27 completed Not Available Not Available Not Available Vitamin D2 1,250 mcg (50,000 unit) capsule active Not Available Not Available Not Available ondansetro n 4 mg disintegra ting tablet 10/14 completed Not Available Not Available Not Available fluticason e propionate 50 mcg/actuat ion nasal spray,susp ension Vancleve 1 spray every day by intranas al route. 04/16 completed Not Available Not Available Not Available amoxicilli n 875 mg-potassi um clavulanat e 125 mg tablet Take 1 tablet every 12 hours by oral route. 02/27 completed Not Available Not Available Not Available neomycin-p olymyxin-h ydrocort 3.5 mg-10,000 unit/mL-1 % ear drops,susp 04/16 completed Not Available Not Available Not Available Progestero ne in Oil 50 mg/mL intramuscu lar 10/14 completed Not Available Not Available Not Available Jolivette 0.35 mg tablet 10/14 completed Not Available Not Available Not Available cholestyra mine (with sugar) 4 gram oral powder 4 G ORALLY DAILY ADMINIST ER W/MEAL AVOID OTHER MEDS WITHIN 1HR BEFORE OR 4-6HR AFTER DOSE 04/04 completed Not Available Not Available Not Available hydrocodon e 7.5 mg-acetami nophen 325 mg/15 mL oral solution 04/16 completed Not Available Not Available Not Available nitrofuran toin monohydrat e/macrocry stals 100 mg capsule TAKE 1 CAPSULE BY MOUTH EVERY 12 HOURS 10/10 completed Not Available Not Available Not Available duloxetine 30 mg capsule,de layed release TK 1 C PO QD IN THE MORNING 10/14 completed Not Available Not Available Not Available duloxetine 60 mg capsule,de layed release TK 1 C PO QD WITH 30MG C FOR TOTAL DOSE OF 90 MG 11/30 completed Not Available Not Available Not Available Zylet 0.3 %-0.5 % eye drops,susp ension 04/16 completed Not Available Not Available Not Available Tylenol Extra Strength 4-5 daily 2014 active for breast pain, hip and back pain and headach es. Not Available Not Available Not Available multivitam in once daily 04/04 completed Not Available Not Available Not Available Vitamin 2014 active Not Available Not Available Not Avai lable Daily Multivitam in once daily active Not Available Not Available No t Available Tussin Cough (DM only) 15 mg/5 mL oral liquid active Not Available Not Available Not Available GaviLyte-G 236 gram-22.74 gram-6.74 gram-5.86 gram oral solution USE DIRECTED 10/08 completed Not Available Not Available Not Available Plus (calcium carbonate) 27 mg iron-1 mg tablet 10/14 completed Not Available Not Available Not Available PramCort 1 %-1 % rectal cream active Not Available Not Available Not Available Belsomra 15 mg tablet TK 1 T PO HS 04/16 completed Not Available Not Available Not Available Belsomra 10 mg tablet 04/16 completed Not Available Not Available Not Available One-A-Day Women's Complete once daily 04/04 completed Not Available Not Available Not Available Vitals Date Recorded Body height Body mass index (BMI) Body weight Heart rate Body temperature Oxygen saturation Oxygen saturation in Arterial blood by Pulse oximetry Systolic blood pressure Diastolic blood pressure Provider Name and Address Organization Details Last Updated DateTime 3 162.56 cm 24.5 kg/m2 14725.7 1 g 117 /min 97 [degF] 98 % 98 % 120 mm[Hg] 68 mm[Hg] [employer] 3 10:58:04 Date Recorded Body height Body mass index (BMI) Body weight Heart rate Body temperature Oxygen saturation Oxygen saturation in Arterial blood by Pulse oximetry Systolic blood pressure Diastolic blood pressure Provider Name and Address Organization Details Last Updated DateTime 4 162.56 cm 24.7 kg/m2 99279.3 g 83 /min 98.1 [degF] 98 % 98 % 120 mm[Hg] 80 mm[Hg] QUINTON Villegas [facility] [employer] 4 12:23:22 Date Recorded Body height Body mass index (BMI) Body weight Heart rate Body temperature Oxygen saturation Oxygen saturation in Arterial blood by Pulse oximetry Systolic blood pressure Diastolic blood pressure Provider Name and Address Organization Details Last Updated DateTime 4 162.56 cm 25.1 kg/m2 37970.4 9 g 85 /min 97 [degF] 95 % 95 % 112 mm[Hg] 60 mm[Hg] [facility] [employer] 4 15:18:57 Date Recorded Body height Body mass index (BMI) Body weight Heart rate Body temperature Oxygen saturation Oxygen saturation in Arterial blood by Pulse oximetry Systolic blood pressure Diastolic blood pressure Provider Name and Address Organization Details Last Updated DateTime 4 162.56 cm 25.1 kg/m2 36354.4 9 g 68 /min 97 [degF] 99 % 99 % 120 mm[Hg] 78 mm[Hg] [facility] [employer] 4 11:07:37 Date Recorded Body height Body mass index (BMI) Body weight Heart rate Body temperature Oxygen saturation Oxygen saturation in Arterial blood by Pulse oximetry Systolic blood pressure Diastolic blood pressure Provider Name and Address Organization Details Last Updated DateTime 4 162.56 cm 24.9 kg/m2 06714.8 9 g 89 /min 97 [degF] 98 % 98 % 110 mm[Hg] 82 mm[Hg] QUINTON [facility]legas [place] [facility] 4 10:49:44 Social History None recorded. Functional Status None recorded. Mental Status None recorded. Family History Relationship Description Onset Age of this Age Resolved Age Notes LastModified by Organization Details LastModified Time Father No current problems or disability [email or web address] Not available 04/16 15:30:10 Mother No current problems or disability [email or web address] Not available 04/16 15:30:39 Unspecified Relation Family history of malignant neoplasm [email or web address] Not available 2022 12:08:39 Notes:Mother Living 70 good health Father 58 from [place] Colon and DM One brother living and in good health Medical History No medical history recorded. Gynecological HistoryNo gynecological history recorded. Obstetrics History GPAL:G 0 P 0 0 0 0 Past Encounters Encounter ID Performer Location Encounter Start Date Encounter Closed Date Diagnosis/Indication Diagnosis SNOMED-CT Code Diagnosis ICD10 Code Diagnosis Note [id number] MD MCKINLEY Michaels[facility] Internal Med Alexis sahu [address] [place] [address] 04/16/2023 14:38:49 04/16/2023 15:38:23 Temporomandibular joint disorder 71216360 M26.609 Screening for cardiovascular system disease 219041380 Z13.6 [id number] Asha Palomo MD Laz_[facility] General Surgery [address] [facility], [facility] [address] [place] [address] 05/19/2023 15:05:43 05/19/2023 15:36:53 Screening for malignant neoplasm of colon 588570974 Z12.11 FMHX/O [place] [id number] MD MCKINLEY Michaels_[facility] Internal Med Alexis sahu [address] [place] [address] 10/08/2023 10:52:02 10/08/2023 11:07:24 Low back strain 267281207 S39.012A [id number] Jose Guillen MD [facility] Internal Med [facility] [address] [address] 12/27/2023 12:11:28 12/27/2023 12:49:34 Abdominal pain 03425422 R10.9 [id number] Jose Guillen MD [facility] Internal Med [facility] [address] [address] 02/28/2024 15:13:14 02/28/2024 15:43:44 Postcholecystectomy syndrome 91297839 K91.5 [id number] Jose Guillen MD [facility] Internal Med Dewey yareli [address] [facility] [address] , [place] [address] 04/04/2024 11:00:01 04/04/2024 11:25:44 Adult health examination 755524840 Z00.00 Depression screening 171 911709 Z13.31 Abdominal pain 71389241 R10.9 [id number] Jose Guillen MD [facility] [address] [facility] [address] [place] [address] 10/10/2024 10:28:38 10/10/2024 11:27:07 Clostridioides difficile infection 320091455 A04.72 Health Concerns Section Related Observation LastModified by Organization Detai ls LastModified Time None Recorded Concern Status LastModified by Organization Details LastModified Time None Recorded Advance Directives Directive None Recorded Payers Encounter Date Sequence Insurance Name Policy Number Policy Santoro Covered Member ID Santoro Member ID Guarantor Name 10/08/2023 1 [facility] ON OR AFTER 05/22/21 (MEDICAID REPLACEMENT - HMO) Bettye Dixon [id number] Bettye Dixon 12/27/2023 1 [facility] ON OR AFTER 05/22/21 (MEDICAID REPLACEMENT - HMO) Bettye Dixon [id number] Bettye Dixon 02/28/2024 1 [facility] ON OR AFTER 05/22/21 (MEDICAID REPLACEMENT - HMO) Bettye Dixon [id number] Bettye Acevedo Zack 04/04/2024 1 [facility] ON OR AFTER 05/22/21 (MEDICAID REPLACEMENT - HMO) Bettye Acevedo Zack [id number] Bettye Acevedo Zack 10/10/2024 1 [facility] ON OR AFTER 05/22/21 (MEDICAID REPLACEMENT - HMO) Bettye Acevedo Zack [id number] Bettye Acevedo Zack Notes Date Note Type Note Provider Name and Address Organization Details Recorded Time 3 text/html Patient Name: Bettye DixonDate Of Service: Wednesday ( 10.08.2023 ): 1980 Age: 43 There has been approximately a 2 lb weight gain since 04/16/2023. This represents approximately a 1.4% change in weight. Weight change attributable to lifestyle changes. Vital Signs:Blood Pressure: Sitting Rt. Arm 120/68Pulse: Sitting 100 /min and RegularRespiratory Rate: 126Height 64 in or 1.6 mWeight 143 lb or 64.9 kgBMI 24.5Temperature: 97 F or 36.1 CPulse Oximetry: 98 % at rest on no oxygen Chief Complaint: Addressed in HPI Problems or conditions discussed in the HPI were the only ones reviewed during the encounter.Only social and family history addressed in the HPI were reviewed during this encounter. Attendant(s): NoneConstitutional and Systemic Symptoms:none Medication Reconciliation: from medication list. History of Present Illness #1. Right lower back strain from yesterday. While walking dogs and getting mail the dogs friend and get pulled by the lesion felt something snap in her right flank area. Denies any history of any type of numbness, tingling weakness or any other focal neurological are neuro sensory or motor deficits. Aggravated by any type of movement including coughing, sneezing twisting and turning. No urinary tract symptomatology. Denies any saddle anesthesia. No incontinence of urine or stool.:Medication List Reviewed and Reconciled 10/08/2023Multivitamin DailyADRs List Reviewed 10/08/2023Nsaids RashLatex RashSurgical HistoryRight Inguinal Hernia, Rectocele, Hysterectomy, Appendectomy, Left Eye RemovalPreventative Testing Confirmed by Our Ruhrxsm2105/07/2023 ALBUMIN 3.8 G/DL NSocial HistoryDoes not smokeDrinks sociallyFamily HistoryMother Living 70 good healthFather 58 from [place] Colon and DMOne brother living and in good health Jose Guillen MD [address] [facility], [facility] [address], [place], [address], [place] [facility] 10/08/2023 11:04:43 4 text/html Patient Name: Bettye Mac Of Service: Wednesday ( 12.27.2023 ): 1980 Age: 43 There has been approximately a 1 lb weight gain since 10/08/2023. This represents approximately a .7% change in weight. Weight change attributable to lifestyle changes. Vital Signs:Blood Pressure: Sitting Rt. Arm 120/80Pulse: Sitting 83 /min and RegularRespiratory Rate: 12Height 64 in or 1.6 mWeight 144 lb or 65.3 kgBMI 24.7Temperature: 98.1 F or 36.7 CPulse Oximetry: 98 % at rest on no oxygen Chief Complaint: Addressed in HPI Problems or conditions discussed in the HPI were the only ones reviewed during the encounter.Only social and family history addressed in the HPI were reviewed during this encounter. Attendant(s): NoneConstitutional and Systemic Symptoms:none Medication Reconciliation: from medication list. History of Present Illness #1. Abdominal pain intermittent. Began approximately 2-2 and half months ago. This followed COVID. No change really in bowel habits. Notices some generalized fullness when eating. When the pain does come on all current usually 1-2 hours after eating. Location mid epigastrium with no radiation. On a scale of 1-10 about a seven. Some associated nausea but no vomiting. Pain may last up to 8-10 hours at times. No associated fever, chills or change in eye color urine color. Does have her appendix out but does have a gallbladder.: Active Medication ListMultivitamin Daily Adverse Drug Reactions ReviewedNsaids RashLatex Rash Surgical Loapnnk9127-49 Right Inguinal Btdisa7777-28 Vjnsupoxs6172-91 Vvamgbbuyzpw1144-06 Bxwtctqaegcl1257-69 Left Eye Removal Preventative Testing Confirmed by Our Pqvwvmp1105/07/2023 ALBUMIN 3.8 G/DL N Social HistoryDoes not smokeDrinks socially Family HistoryMother Living 70 good healthFather 58 from [place] Colon and DMOne brother living and in good health Jose Guillen MD [address] [facility], [address], [place], [address], [place] [facility] 12/27/2023 12:35:42 4 text/html Patient Name: Bettye Mac Of Service: Wednesday ( 02.28.2024 ): 1980 Age: 43 There has been approximately a 2 lb weight gain since 12/27/2023. This represents approximately a 1.4% change in weight. Weight change attributable to lifestyle changes. Vital Signs:Blood Pressure: Sitting Rt. Arm 112/60Pulse: Sitting 85 /min and RegularRespiratory Rate: 12Height 64 in or 1.6 mWeight 146 lb or 66.2 kgBMI 25.1Temperature: 97 F or 36.1 CPulse Oximetry: 95 % at rest on no oxygen Chief Complaint: Addressed in HPI Problems or conditions discussed in the HPI were the only ones reviewed during the encounter.Only social and family history addressed in the HPI were reviewed during this encounter. Attendant(s): NoneConstitutional and Systemic Symptoms:none Medication Reconciliation: from medication list. History of Present Illness #1. Recent cholecystectomy back in January of 2024. This was performed because of intermittent right upper quadrant abdominal pain. Since that time has now developed some postprandial pain. Usually current within several hours after ingestion of food. Has tried some PPI inhibitors [id number]-[id number] with no of or no improvement at all. Is accompanied by some diarrhea usually a mushy or liquid type stool. Was given some cholestyramine by the surgeon but refused to take it because he read some of the side effects of the med of instructed this would be a good idea to try since it may help with any type post cholecystectomy type symptomatology. States the pain may last for several hours after current. A scale of 1-10 about a six or seven. No associated nausea or vomiting or other gastrointestinal symptoms.: Active Medication ListMultivitamin Daily Adverse Drug Reactions ReviewedNsaids RashLatex Rash Surgical Keolzqn8158-37 Lap Pyawsccgrhwcevy4308-62 Right Inguinal Xnlbny6996-71 Mwnzshlap2798-10 Azlldekhiqli1439-07 Bzjxvnppjvda3656-76 Left Eye Removal Preventative Zugpoee2505/07/2023 ALBUMIN 3.8 G/DL N Social HistoryDoes not smokeDrinks socially Family HistoryMother Living 70 good healthFather 58 from [place] Colon and DMOne brother living and in good health Jose Guillen MD [address] [facility] [address], [place], [address], [facility] [employer] 02/28/2024 15:41:16 4 text/html Patient Name: Bettye Mac Of Service: Wednesday ( 04.04.2024 ): 1980 Age: 44 Vital Signs:Blood Pressure: Sitting Rt. Arm 120/78Pulse: Sitting 68 /min and RegularRespiratory Rate: 12Height 64 in or 1.6 mWeight 146 lb or 66.2 kgBMI 25.1Temperature: 97 F or 36.1 CPulse Oximetry: 99 % at rest on no oxygen Chief Complaint: persistent abdominal pain Problems or conditions discussed in the HPI were the only ones reviewed during the encounter.Only social and family history addressed in the HPI were reviewed during this encounter. Attendant(s): NoneConstitutional and Systemic Symptoms:none Medication Reconciliation: from medication list. History of Present Illness In for a well patient check up. Last well patient evaluation was approximately one year. No interval complaints of any major medical problems. No hx of any chest pain, shortness of breath, nausea, vomiting, diarrhea or constitutional symptoms. Also being followed for other chronically monitored problems.Has Had A Mammogram dueHas Had A Pap Smear dueImmunizations Up To Date or refuses to takeNo Significant Change In Family HxColonoscopy or Cologuard: not dueFall Risk normalDepression Score: 0Hearing normalVision normalReviewed Smoking and Drug HistoryReviewed Immunization HistoryInstructed on importance of weight on diabetes, heart and other diseases aggravated by obesity. #1. Persistent abdominal pain usually postprandial. Has had a gallbladder taken out. Recent blood work which include a lipase, amylase in hepatic panel were essentially normal. No interval complaints of any new problems. Is scheduled to see GI consult in the next week or so. May need an upper endoscopy. Was given a trial of cholestyramine for post cholecystectomy type symptomatology which did not cause any significant improvement in her symptoms.: Active Medication ListMultivitamin Daily Adverse Drug Reactions ReviewedNsaids RashLatex Rash Surgical Tfimyzi9741-30 Lap Ripdrgpgszzwusq9313-63 Right Inguinal Ijsnnh0995-28 Rwzmaxegd0203-92 Trdizarcafqu1407-31 Gacurinvewoq0069-70 Left Eye Removal Preventative Eyvtasv9005/07/2023 ALBUMIN 3.8 G/DL N Social HistoryDoes not smokeDrinks socially Family HistoryMother Living 70 good healthFather 58 from [place] Colon and DMOne brother living and in good health Jose Guillen MD [address] [facility], [facility] [address], [place], [address], [facility] [employer] 04/04/2024 11:22:35 4 text/html Patient Name: Bettye Mac Of Service: Wednesday ( 10.10.2024 ): 1980 Age: 44 Vital Signs:Blood Pressure: Sitting Rt. Arm 110/92Pulse: Sitting 89 /min and RegularRespiratory Rate: 16Height 64 in or 1.6 mWeight 145 lb or 65.8 kgBMI 24.9Temperature: 97 F or 36.1 CPulse Oximetry: 98 % at rest on no oxygen Chief Complaint: Addressed in HPI Problems or conditions discussed in the HPI were the only ones reviewed during the encounter.Only social and family history addressed in the HPI were reviewed during this encounter. Attendant(s): NoneConstitutional and Systemic Symptoms:none Medication Reconciliation: from medication list. Qiycnkehrec94-95-6822: CT scan of the abdomen and pelvis without contrast demonstrates a 5 mm nonobstructing left renal calculus. 04-26-2024: Upper endoscopy demonstrates mild esophagitis erosive with no evidence any bleeding. Multiple biopsies performed. History of Present Illness #1. Recent history of C diff infection. Was treated with antibiotics is doing much better. Still has some residual queasiness and dysfunctional type of motility problems. He is clinically doing well otherwise. No interval complaints of any pain, diarrhea, hematochezia any or any fever or chills. No other constitutional or systemic symptomatology.: Active Medication ListMultivitamin Daily Adverse Drug Reactions ReviewedNsaids RashLatex Rash Surgical Jvvpxcr0803-90 Lap Bughtoqabrqtamb2998-31 Right Inguinal Dvubex0357-28 Fpyfngjwa7547-88 Kdjivutpzsom4386-43 Enqvpofrujql6362-38 Left Eye Removal Preventative Testing( ) 07/11/2024 Colonoscopy ( 5 Years ) 07/11/2029( ) 04/26/2024 Upper Endoscopy 04/26/2029( ) 05/07/2023 Albumin 3.8 G/DL N Social HistoryDoes not smokeDrinks socially Family HistoryMother Living 70 good healthFather 58 from [place] Colon and DMOne brother living and in good health Jose Guillen MD [address] [facility], [facility] [address], [place], [address], [facility] 10/10/2024 11:20:32 OBGyn Episode No OBEpisode recorded.
--- OUTSIDE RECORDS SUMMARY | 2025-02-16 08:34 | XMS_ITS | Clinical Summary ---
Author Organization [facility] Address [address] [place] [address] Phone Care Team Providers Care Encyclopedia Research Worker Name Role Phone Unavailable Primary Care Provider Unavailabl e Allergies Active Allergy Reactions Criticality Noted Date Comments Adhesive Tape-Silicones Rash Low 02/19/2021 Scopolamine Nausea and Vomiting High 03/17/2021 Severe nausea /vomiting works opposite on her per pt Medications No known medications Social History Tobacco Use Types Packs/Day Years Used Date Smoking Tobacco: Former Smokeless Tobacco: Never Alcohol Use Standard Drinks/Week Comments Not Currently 0 (1 standard drink = 0.6 oz pur e alcohol) Comments Unknown Sex and Gender Information Value Date Recorded Sex Assigned at Not on file Legal Sex Female 2:44 PM CDT Gender Identity Not on file Sexual Orientation Not on file Last Filed Vital Signs Vital Sign Reading Time Taken Comments Blood Pressure 114/74 03/17/2021 4:47 PM CDT Pulse 62 03/17/2021 4:47 PM CDT Temperature 37.2 C (99 F) 03/17/2021 4:47 PM CDT Respiratory Rate 18 03/17/2021 4:47 PM CDT Oxygen Saturation 99% 03/17/2021 4:47 PM CDT Inhaled Oxygen Concentration - - Weight 64.8 kg (142 lb 12.8 oz) 021 10:42 AM CDT Height 162.6 cm (5' 4 ) 03/17/2021 10:4 2 AM CDT Body Mass Index 24.51 03/17/2021 10:42 AM CDT Plan of Treatment Health Maintenance Due Date Last Done Comments HEPATITIS B VACCINES (1 of 3 - 19+ 3-dose series) 2000 PAP SMEAR 2002 CERVICAL CANCER SCREENING 2011 HPV/Cotest (30-65) 2011 PAP SMEAR 2011 BREAST CANCER SCREENING 2021 INFLUENZA VACCINE (#1) 2024 09/14/2018 DTAP/TDAP/TD VACCINES (2 - T d or Tdap) 06/13/2025 06/13/2015 HPV VACCINES Aged Out No longer eligi ble based on patient's age to complete this topic PNEUMOCOCCAL VACCINE 0-49 YEARS Aged Out No longer eligible based on patient's age to complete this topic Medical Devices Explanted Type Area Flux Core Welder Device Identifier Shelf Expiration Date Model / Serial / Lot Breast Explanted:Qty: 1 on 03/17/2021 by Nahum Leiva MD at [facility] Bilateral: Breast Description:left breast impl ant was explanted Breast Implant Right Explanted:Qty: 1 on 03/17/2021 by Nahum Leiva MD at [facility] Right: Breast / N/A / N/A Insurance Advance Directives For more information, please contact: [phone] * Full Code (Latest Code Status on File) Date Activated Date Inactivated Comments 03/17/2021 2:38 PM 03/17/2021 7:05 PM * Full Code Date Activated Date Inactivated Comments 03/17/2021 10:47 AM 03/17/2021 2:38 PM
--- OUTSIDE RECORDS SUMMARY | 2025-02-16 08:34 | XMS_ITS | Clinical Summary ---
Author Organization [facility] [address] Address [address] [place] [address] Care Team Providers Care Traffic Rate Clerk Name Role Phone Kishan Doshi MD Primary Care Provider [phone] Allergies Active Allergy Reactions Criticality Noted Date [...] it, Preservative Free, Intramuscular 09/14/2018 Tdap 06/13/2015 Surgical History Surgery Date Site/Laterality Comments EYE SURGERY Left APPENDECTOMY HYSTERECTOMY Medical History Medical History Date Comments Anxiety Family History Medical History Relation Name Comments Colon cancer Father Hypertension Mother Cancer Other 1 Reported Family History Of Cancer - mother,father (Added by TW Conv) Premature Menopause Other 2 Prematur e Menopause - mother (Added by TW Conv) Cystic fibrosis Other 3 Cystic Fibro sis - mother (Added by TW Conv) Obesity Other 4 Obesity - mothe r's side (Added by TW Conv) Diabetes Other 5 Diabetes Mellit us - father (Added by TW Conv) Hypertension Other 6 Reported Previo us High Blood Pressure - mother, grandmother (Added by TW Conv) Relation Name Status Comments Father Mother Other 1 Other 2 Other 3 Other 4 Other 5 Other 6 Social History Tobacco Use Types Packs/Day Years Used Date Smoking Tobacco: Former Cigarettes Q uit: 2005 Tobacco Cessation:Counseling Given: Not Answered Comments Unknown Sex and Gender Information Value Date Recorded Sex Assigned at Not on file Legal Sex Female 3:58 AM OIL BURNER JOURNEYMAN Gender Identity Female 09/23/2021 10:15 AM CDT Sexual Orientation Straight 09/23/2021 10 :15 AM CDT Obstetrics History Last Filed Vital Signs Vital Sign Reading Time Taken Comments Blood Pressure 127/76 09/30/2022 11:52 AM OIL BURNER JOURNEYMAN Pulse 113 09/30/2022 11:52 AM OIL BURNER JOURNEYMAN Temperature - - Respiratory Rate - - Oxygen Saturation - - Inhaled Oxygen Concentration - - Weight 64.4 kg (142 lb) 09/30/2022 11:52 AM OIL BURNER JOURNEYMAN Height 162.6 cm (5' 4 ) 09/30/2022 11:52 AM OIL BURNER JOURNEYMAN Body Mass Index 24.37 09/30/2022 11:52 AM OIL BURNER JOURNEYMAN Plan of Treatment Health Maintenance Due Date Last Done Comments Depression Screening 1981 Hepatitis C Screening 1981 Varicella Vaccines (1 of 2 - 13+ 2-dose series) 1994 Hepatitis B Screening 1999 Regular Well Visit/Exam 18-64 04/06/2023, 01/15/2021 Breast Cancer Screening-Mammogram 09/07/2023 09/07/2022 Covid-19 Vaccine (3 - 2024-2 5 season) 2024 09/24/2021, 01/27/2021 Influenza Vaccine (#1) 2024 09/14/2018 DTaP/Tdap/Td Vaccine (2 - Td or Tdap) 06/13/2025 06/13/2015 HPV Vaccines Aged Out No longer eligi ble based on patient's age to complete this topic Pneumococcal vaccine <65 Aged Out No longer eligible based on patient's age to complete this topic Insurance Care Teams Traffic Rate Clerk Relationship Specialty Start Date End Date Kishan Doshi MD [address] [facility] [address], [place] [address] PCP - General Internal Medicine 10/23/20
== END 2025-02-16 08:22 | disposition home or self-care (01) ==
LOC: ANHIMG 08:23
PROVIDERS: PCP Internal Medicine; Visit Provider Obstetrics & Gynecology
DX: Z12.31 Encounter for screening mammogram for malignant neoplasm of breast (principal)
CPT/HCPCS: 77063; 77067

== ENCOUNTER 2025-04-06 08:00 | Outpatient (CLI) | payer OTHER, SELFPAY ==
--- OUTSIDE RECORDS SUMMARY | 2025-04-06 08:06 | XMS_ITS | Referral Summary ---
Author Organization [facility] [address] Address [address] [place] [address] Care Team Providers Care Student Support Counselor Name Role Phone Kishan Doshi MD Primary Care Provider [phone] Allergies Active Allergy Reactions Criticality Noted Date [...] on file Legal Sex Female 3:58 AM RAILWAY TRACK PLANT OPERATOR Gender Identity Female 09/23/2021 10:15 AM CDT Sexual Orientation Straight 09/23/2021 10 :15 AM CDT Last Filed Vital Signs Vital Sign Reading Time Taken Comments Blood Pressure 127/76 09/30/2022 11:52 AM RAILWAY TRACK PLANT OPERATOR Pulse 113 09/30/2022 11:52 AM RAILWAY TRACK PLANT OPERATOR Temperature - - Respiratory Rate - - Oxygen Saturation - - Inhaled Oxygen Concentration - - Weight 64.4 kg (142 lb) 09/30/2022 11:52 AM RAILWAY TRACK PLANT OPERATOR Height 162.6 cm (5' 4 ) 09/30/2022 11:52 AM RAILWAY TRACK PLANT OPERATOR Body Mass Index 24.37 09/30/2022 11:52 AM RAILWAY TRACK PLANT OPERATOR Plan of Treatment Not on file Insurance Care Teams Student Support Counselor Relationship Specialty Start Date End Date Kishan Doshi MD PCP - General Internal Medicine 10/23/20
--- OUTSIDE RECORDS SUMMARY | 2025-04-06 08:07 | XMS_ITS | Clinical Summary ---
Author Organization [facility] Address [address] [place] [address] Phone Care Team Providers Care Chemical Milling Processor Name Role Phone Unavailable Primary Care Provider [...] of 3 - 19+ 3-dose series) 2000 HPV/Cotest (21-29) 2002 CERVICAL CANCER SCREENING 2011 HPV/Cotest (30-65) 2011 PAP SMEAR 2011 BREAST CANCER SCREENING 2021 INFLUENZA VACCINE (#1) 2024 09/14/2018 DTAP/TDAP/TD VACCINES (2 - T d or Tdap) 06/13/2025 06/13/2015 HPV VACCINES Aged Out No longer eligi ble based on patient's age to complete this topic Medical Devices Explanted Type Area Tableau Administrator Device Identifier Shelf Expiration Date Model / Serial / Lot Breast Explanted:Qty: 1 on 03/17/2021 by Nahum Leiva MD at [facility] Bilateral: Breast Description:left breast impl ant was explanted Breast Implant Right Explanted:Qty: 1 on 03/17/2021 by Nahum Leiva MD at [facility] Right: Breast / N/A / N/A Insurance MEDICAID [facility] Address: [address] [address] Advance Directives For more information, please contact: [phone] * Full Code (Latest Code Status on File) Date Activated Date Inactivated Comments 03/17/2021 2:38 PM 03/17/2021 7:05 PM * Full Code Date Activated Date Inactivated Comments 03/17/2021 10:47 AM 03/17/2021 2:38 PM
--- OUTSIDE RECORDS SUMMARY | 2025-04-06 08:07 | XMS_ITS | Clinical Summary ---
Author Organization [facility] Address [address] [place] [address] Care Team Providers Care Correctional Maintenance Technician Name Role Phone Kishan Doshi MD Primary Care Provider [phone] Source Comments [facility],non-owned Affiliates and Associated Physician Practices is amultiple site organization consisting of ambulatory clinics and hospital sitesin [place], [place], [place] and [place]. This disclosure is being madepursuant to the Care Everywhere program and may not contain all information available regarding this patient. Last updated 18.[facility] [employer] Social History Tobacco Use Types Packs/Day Years Used Date Smoking Tobacco: Never Assessed Comments Unknown Sex and Gender Information Value Date Recorded Sex Assigned at Not on file Legal Sex Female 11:36 AM CDT Gender Identity Not on file Sexual Orientation Not on file Plan of Treatment Health Maintenance Due Date Last Done Comments LIPID TESTING 1981 MAMMOGRAM 1981 PAP SMEAR 1981 HIV SCREENING 1996 HEPATITIS C SCREENING 02/25/1999 DTAP/TDAP/TD VACCINES (1 - Tdap) 2000 HEPATITIS B VACCINE (1 of 3 - 19+ 3-dose series) 2000 COVID-19 VACCINE ( - 2023-2 5 season) 2024 DEPRESSION SCREENING 11/22/2024 INFLUENZA VACCINE (Season Ended) 2025 ZOSTER VACCINE (1 of 2) 2031 HIB [...] patient's age to complete this topic Insurance ANTH [facility] SELF PAY NO INSURANCE Member Subscriber Plan / Payer (Ef fective for All Dates) Name:Bettye Dixon Member ID:Not on file Relation to Subscriber:Not on file Name:BETTYE DIXON Subscriber ID:Not on file (Home) Address: [address] [place] [address] Payer ID:Not on file Group ID:Not on file Type:Self Pay Address: [place], [place] [facility] SELF PAY NO INSURANCE Member Subscriber Plan / Payer (Ef fective for All Dates) Name:Bettye Dixon R Member ID:Not on file Relation to Subscriber:Not on file Name:BETTYE DIXON Subscriber ID:Not on file Address: [address] [place] [address] Payer ID:Not on file Group ID:Not on file Type:Self Pay Address: [place], [place] [facility] SELF PAY NO INSURANCE Member Subscriber Plan / Payer (Ef fective for All Dates) Name:Bettye Dixon R Member ID:Not on file Relation to Subscriber:Not on file Name:BETTYE DIXON Subscriber ID:Not on file Address: [address] [place] [address] Payer ID:Not on file Group ID:Not on file Type:Self Pay Address: [place], [place] [facility] SELF PAY NO INSURANCE Member Subscriber Plan / Payer (Ef fective for All Dates) Name:Bettye Dixon R Member ID:Not on file Relation to Subscriber:Not on file Name:BETTYE DIXON Subscriber ID:Not on file Address: [address] [place] [address] Payer ID:Not on file Group ID:Not on file Type:Self Pay Address: [place], [place] * Guarantor: BETTYE DIXON Account Type Relation to Patient Date of Phone Billing Address Personal/Family [address] [place] [address] [facility] SELF PAY NO INSURANCE Member Subscriber Plan / Payer (Ef fective for All Dates) Name:Bettye Dixon R Member ID:Not on file Relation to Subscriber:Not on file Name:BETTYE DIXON Subscriber ID:Not on file Address: [address] [place] [address] Payer ID:Not on file Group ID:Not on file Type:Self Pay Address: [place], [place] * Guarantor: BETTYE DIXON Account Type Relation to Patient Date of Phone Billing Address Personal/Family [address] [place] [address] [facility] SELF PAY NO INSURANCE Member Subscriber Plan / Payer (Ef fective for All Dates) Name:Zack Bettye Acevedo Member ID:Not on file Relation to Subscriber:Not on file Name:ZACKBETTYE Subscriber ID:Not on file Address: [address] [place] [address] Payer ID:Not on file Group ID:Not on file Type:Self Pay Address: [place], [place] * Guarantor: BETTYE DIXON Account Type Relation to Patient Date of Phone Billing Address Personal/Family [address] [place] [address] [facility] SELF PAY NO INSURANCE Member Subscriber Plan / Payer (Ef fective for All Dates) Name:Zack Bettye Acevedo Member ID:Not on file Relation to Subscriber:Not on file Name:BETTYE DIXON Subscriber ID:Not on file Address: [address] [place] [address] Payer ID:Not on file Group ID:Not on file Type:Self Pay Address: [place], [place] Care Teams Correctional Maintenance Technician Relationship Specialty Start Date End Date Kishan Doshi MD PCP - General 08/18/18
--- OUTSIDE RECORDS SUMMARY | 2025-04-06 08:07 | XMS_ITS | Data Portability ---
Author Organization [facility] [email or web address], Main Office Address [address] [place] [address] Assessment No assessment recorded. Plan of Treatment Reminders Order Date Submit Date Provider Last Modified By Organization Details Last Modified Time Details Appointments None recorded. Lab lipid panel, serum [address] [place] [address] Outpatient Lab, [address] [place], [address], 11:32:13 CMP, serum or plasma [address] [place] [address] Outpatient Lab, [address] [place], [address], 5 11:32:13 ESR (erythrocyt e sedimentati on rate), blood [address] [place] [address] Lab, [address] [place], [address], 5 11:32:14 TSH, serum or plasma [address] [place] [address] Outpatient Lab, [address] [place], [address], 5 11:32:14 CBC w/ auto diff [address] [place] [address] Outpatient Lab, [address] [place], [address], 5 11:32:14 T4, free, serum [address] [place] [address] Outpatient Lab, [address] [place], [address], 5 11:32:14 CBC w/ auto diff 2023 024 [facility] Outpatient Lab, [address] [place] [address], [address], 4 17:54:41 hepatic function panel, serum 2023 024 [facility] Outpatient Lab, [address] [place] [address], [address], 4 18:15:55 amylase + lipase, serum [id number] [place] [address] Lab, [address] [place] [address], [address], 4 15:12:04 CBC w/ auto diff 2023 024 [facility] Outpatient Lab, [address] [place] [address], [address], 4 13:49:32 CMP, serum or plasma 2023 024 [facility] Outpatient Lab, [address] [place] [address], [address], 4 13:36:18 lipase, serum or plasma 2023 024 [facility] Outpatient Lab, [address] [place] [address], [address], 4 13:36:21 amylase, serum or plasma 2023 024 [facility] Outpatient Lab, [address] [place] [address], [address], 4 13:36:23 lipid panel, serum 2023 024 [facility] Outpatient Lab, [address] [place] [address], [address], 13:36:28 Referral None recorded. Procedures None recorded. Surgeries None recorded. Imaging None recorded. Medication Orders pantoprazol e 40 mg tablet,phillip yed release 2023 024 [email or web address] [id number], [address] [place], [address], 11:08:08 Patient TargetsNo targets recorded. 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 Plan is to institute on the cholestyramine. Will try to get blood work consisting of a hepatic panel along with a CBC and lipase and amylase. Keep Appt: Wed 09:50 AM [place] Portions of the record may have been created with voice recognition software. Occasional wrong-word or s ound-a-like substitutions may have occurred due to the inherent limitations of voice recognition software. Read the chart carefully and recognize, using context, where substitutions have occurred. [email or web address] Not available 02/28/2024 15:40:56 04/04/2024 [id number] risk assessment* [email or web address] Not availabl e 04/04/2024 11:22:32 INFLUENZA VACCIN [...] SCREENING Not indicated GLUCOSE SCREENING LIPID SCREENING [email or web address] Not available 04/04/2024 11:15:30 Adult health evaluation risk assessment stable. Is up-to-date on her apparently on her mammography as well as colonoscopy since there is a family history of colon cancer. Otherwise is doing well no need for any additional blood work at this time. Scheduled follow-up with the financial services counselor. Follow-up in six months with us. Next Appointment: 6 Months Approximate Date: 10/01/2024 Portions of the record may have been created with voice recognition software. Occasional wrong-word or s ound-a-like substitutions may have occurred due to the inherent limitations of voice recognition software. Read the chart carefully and recognize, using context, where substitutions have occurred. [email or web address] Not available 04/04/2024 11:22:13 10/10/2024 [id number] Follow-up for C diff infection clinically stable. [...] recognize, using context, where substitutions have occurred. [email or web address] Not available 10/10/2024 11:20:17 04/03/2025 [id number] Been bothered intermittently by what sounds like migraine headaches associated with some settling scotomata as well as generalized headaches usually occurring least 3-5 days per week. May last for several hours at a time. There is some associated photophobia. No specific prodrome noted. Is on no current medications not been on any medications for it. Will check a CT brain scan and start on some samples Ubrelvy 100 mg as directed at the onset of the headache to see if there is any improvement. If so consider putting on maintenance dose help prevent migraines. Will check blood work consisting of a CBC, CMP, lipid, thyroid and sed rate. Additional Orders - Directives - Recommendations 1. CT scan of the head without contrast intractable migraine Follow Up: 4 Months Approximate Date: 08/01/2025 Portions of record are template driven. When necessary additional context will be provided. Additionally some portions have been created with voice recognition software. Occasional wrong-word or s ound-a-like substitutions may have occurred due to the inherent limitations of voice recognition software. Read the chart carefully and recognize, using context, where substitutions may have occurred. Created: Jose Guillen M.D. 04.03.2025 10:31 AM [email or web address] Not available 04/03/2025 11:31:02 Reason for Referral None Reported. Results Created Date Observation Date Name Description Value Unit Range Abnormal Flag Note LastModifiedBy Organization Detail LastModifiedTime 12/31/19 24 12/31/2023 COMPR EHENS MALLORY METAB OLIC PANEL sodium 138 mmol/ L 137-14 5 Not Available [facility] (Lab) [address] [place], [address], 12/31/2023 13:36:18 12/31/19 24 12/31/2023 COMPR EHENS MALLORY METAB OLIC PANEL potassium 4.0 mmol/ L 3.5-5. 1 Not Available [facility] (Lab) [address] [place], [address], 12/31/2023 13:36:18 12/31/19 24 12/31/2023 COMPR EHENS MALLORY METAB OLIC PANEL chloride 107 mmol/ L 98-107 Not Available [facility] (Lab) [address] [place], [address], 12/31/2023 13:36:18 12/31/19 24 12/31/2023 COMPR EHENS MALLOYR METAB OLIC PANEL carbon dioxide 30 mmol/ L 22-30 Not Available [facility] (Lab) [address] [place], [address], 12/31/2023 13:36:18 12/31/19 24 12/31/2023 COMPR EHENS MALLORY METAB OLIC PANEL anion gap 5.0 mmol/ L 14-22 low Not Available [facility] (Lab) [address] [place], [address], 12/31/2023 13:36:18 12/31/19 24 12/31/2023 COMPR EHENS MALLORY METAB OLIC PANEL glucose 79 mg/dL 70-99 Not Available [facility] (Lab) [address] [place], [address], 12/31/2023 13:36:18 12/31/19 24 12/31/2023 COMPR EHENS MALLORY METAB OLIC PANEL BUN 16 mg/dL 8-19 Not Available [facility] (Lab) [address] [place], [address], 12/31/2023 13:36:18 12/31/19 24 12/31/2023 COMPR EHENS MALLORY METAB OLIC PANEL creatinine 0.72 mg/dL 0.66-1 .25 Not Available [facility] (Lab) [address] [place], [address], 12/31/2023 13:36:18 12/31/19 24 12/31/2023 COMPR EHENS MALLORY METAB OLIC PANEL GFR >60 Refer ence Range : [place] ge GFR Healt hy Adult : >60 [...] calcu lator is avail able on the [facility] websi te: https ://toney miranda.o jhoana/pr ofess ional s/kdo qi/gf r_cal culat or Not Available [facility] (Lab) [address] [place], [address], 12/31/2023 13:36:18 12/31/19 24 12/31/2023 COMPR EHENS MALLORY METAB OLIC PANEL alkaline phosphatase 38 U/L 38-126 Not Available [facility] (Lab) [address] [place], [address], 12/31/2023 13:36:18 12/31/19 24 12/31/2023 COMPR EHENS MALLORY METAB OLIC PANEL alanine aminotransfe rase 14 U/L 0-35 Not Available [facility] (Lab) [address] [place], [address], 12/31/2023 13:36:18 12/31/19 24 12/31/2023 COMPR EHENS MALLORY METAB OLIC PANEL aspartate aminotransfe rase 23 U/L 15-37 Not Available [facility] (Lab) [address] [place], [address], 12/31/2023 13:36:18 12/31/19 24 12/31/2023 COMPR EHENS MALLORY METAB OLIC PANEL bilirubin, total 0.50 mg/dL 0.20-1 .30 Not Available [facility] (Lab) [address] [place], [address], 12/31/2023 13:36:18 12/31/19 24 12/31/2023 COMPR EHENS MALLORY METAB OLIC PANEL calcium 8.9 mg/dL 8.4-10 .2 Not Available [facility] (Lab) [address] [place], [address], 12/31/2023 13:36:18 12/31/19 24 12/31/2023 COMPR EHENS MALLORY METAB OLIC PANEL total protein 6.0 g/dL 6.3-8. 2 low Not Available [facility] (Lab) [address] [place], [address], 12/31/2023 13:36:18 12/31/19 24 12/31/2023 COMPR EHENS MALLORY METAB OLIC PANEL albumin 3.4 g/dL 3.4-5. 0 Not Available [facility] (Lab) [address] [place], [address], 12/31/2023 13:36:18 12/31/19 24 12/31/2023 COMPR EHENS MALLORY METAB OLIC PANEL globulin 2.6 g/dL 2.6-4. 2 Not Available [facility] (Lab) [address] [place], [address], 12/31/2023 13:36:18 12/31/19 24 12/31/2023 COMPR EHENS MALLORY METAB OLIC PANEL A/G ratio 1.3 ratio 1.0-2. 0 Not Available [facility] (Lab) [address] [facility], [address], 12/31/2023 13:36:18 12/31/19 24 12/31/2023 LIPAS E SERUM lipase 76 U/L 23-300 Not Available [facility] (Lab) [address] [place], [address], 12/31/2023 13:36:21 12/31/19 24 12/31/2023 AMYLA SE SERUM amylase 63 U/L 30-110 Not Available [facility] (Lab) [address] [place], [address], 12/31/2023 13:36:23 12/31/19 24 12/31/2023 LIPID PANEL cholesterol 174 mg/dL 140-19 9 NIH JORGE NSUS RECOM MENDA TION FOR ZAC STERO L: ADULT CHILD LOW RISK: <200 <170 BORDE RLINE : <200- 239 ----- HIGH RISK: >240 >200 Not Available [facility] (Lab) [address] [place], [address], 12/31/2023 13:36:28 12/31/19 24 12/31/2023 LIPID PANEL triglyceride s 75 mg/dL 0-150 NIH JORGE NSUS REPOR T RECOM MENDA TION FOR TRIGL YCERI CIELO: ADULT CHILD LOW RISK: <150 ----- BODER LINE: 150-1 99 ----- HIGH RISK: >200 ----- Not Available [facility] (Lab) [address] [place], [address], 12/31/2023 13:36:28 12/31/19 24 12/31/2023 LIPID PANEL HDL cholesterol 65 mg/dL 40- Not Available [facility] (Lab) [address] [place], [address], 12/31/2023 13:36:28 12/31/19 24 12/31/2023 LIPID PANEL [...] WILL NOT BE REPOR BHARATHI. Not Available [facility] (Lab) [address] [place], [address], 12/31/2023 13:36:28 12/31/19 24 12/31/2023 CBC/C OMPLE TE BLD COUNT W/DIF F white blood cells 3.9 x10'3 /uL 4.2-10 .8 low Not Available [facility] (Lab) [address] [place], [address], 12/31/2023 13:49:32 12/31/19 24 12/31/2023 CBC/C OMPLE TE BLD COUNT W/DIF F red blood cells 3.81 x10'6 /uL 3.80-5 .20 Not Available [facility] (Lab) [address] [place], [address], 12/31/2023 13:49:32 12/31/19 24 12/31/2023 CBC/C OMPLE TE BLD COUNT W/DIF F hemoglobin 10.7 g/dL 12.0-1 5.6 low Not Available [facility] (Lab) [address] [place], [address], 12/31/2023 13:49:32 12/31/19 24 12/31/2023 CBC/C OMPLE TE BLD COUNT W/DIF F hematocrit 35.1 % 35.7-4 5.7 low Not Available [facility] (Lab) [address] [place], [address], 12/31/2023 13:49:32 12/31/19 24 12/31/2023 CBC/C OMPLE TE BLD COUNT W/DIF F mean red cell volume 92.1 fL 82.0-9 9.0 Not Available [facility] (Lab) [address] [place], [address], 12/31/2023 13:49:32 12/31/19 24 12/31/2023 CBC/C OMPLE TE BLD COUNT W/DIF F mean red cell hemoglobin 28.1 pg 27.0-3 3.0 Not Available [facility] (Lab) [address] [place], [address], 12/31/2023 13:49:32 12/31/19 24 12/31/2023 CBC/C OMPLE TE BLD COUNT W/DIF F mean RBC HGB concentratio n 30.5 g/dL 31.0-3 6.0 low Not Available [facility] (Lab) [address] [place], [address], 12/31/2023 13:49:32 12/31/19 24 12/31/2023 CBC/C OMPLE TE BLD COUNT W/DIF F red cell distribution width 12.7 % 11.8-1 5.5 Not Available [facility] (Lab) [address] [place], [address], 12/31/2023 13:49:32 12/31/19 24 12/31/2023 CBC/C OMPLE TE BLD COUNT W/DIF F platelets 259 x10'3 /uL 150-40 0 Not Available [facility] (Lab) [address] [place], [address], 12/31/2023 13:49:32 12/31/19 24 12/31/2023 CBC/C OMPLE TE BLD COUNT W/DIF F mean platelet volume 10.3 fL 9.0-12 .4 Not Available [facility] (Lab) [address] [place], [address], 12/31/2023 13:49:32 12/31/19 24 12/31/2023 CBC/C OMPLE TE BLD COUNT W/DIF F neutrophils 43.0 % 39.0-7 2.0 Not Available [facility] (Lab) [address] [place], [address], 12/31/2023 13:49:32 12/31/19 24 12/31/2023 CBC/C OMPLE TE BLD COUNT W/DIF F lymphocytes 39.4 % 16.0-4 7.0 Not Available [facility] (Lab) [address] [place], [address], 12/31/2023 13:49:32 12/31/19 24 12/31/2023 CBC/C OMPLE TE BLD COUNT W/DIF F monocytes 11.3 % 5.0-12 .0 Not Available [facility] (Lab) [address] [place], [address], 12/31/2023 13:49:32 12/31/19 24 12/31/2023 CBC/C OMPLE TE BLD COUNT W/DIF F eosinophils 5.2 % 1.0-7. 0 Not Available [facility] (Lab) [address] [place], [address], 12/31/2023 13:49:32 12/31/19 24 12/31/2023 CBC/C OMPLE TE BLD COUNT W/DIF F basophils 0.8 % 0.0-2. 0 Not Available [facility] (Lab) [address] [place], [address], 12/31/2023 13:49:32 12/31/19 24 12/31/2023 CBC/C OMPLE TE BLD COUNT W/DIF F immature granulocytes 0.3 % 0.00-0 .50 Not Available [facility] (Lab) [address] [place], [address], 12/31/2023 13:49:32 12/31/19 24 12/31/2023 CBC/C OMPLE TE BLD COUNT W/DIF F neutrophils, absolute count 1.67 x10'3 /uL 1.5-8. 0 Not Available [facility] (Lab) [address] [place], [address], 12/31/2023 13:49:32 12/31/19 24 12/31/2023 CBC/C OMPLE TE BLD COUNT W/DIF F lymphocytes, absolute count 1.53 x10'3 /uL 1.07-3 .43 Not Available [facility] (Lab) [address] [place], [address], 12/31/2023 13:49:32 12/31/19 24 12/31/2023 CBC/C OMPLE TE BLD COUNT W/DIF F monocytes, absolute count 0.44 x10'3 /uL 0.29-0 .99 Not Available [facility] (Lab) [address] [place], [address], 12/31/2023 13:49:32 12/31/19 24 12/31/2023 CBC/C OMPLE TE BLD COUNT W/DIF F eosinophils, absolute count 0.20 x10'3 /uL 0.02-0 .53 Not Available [facility] (Lab) [address] [place], [address], 12/31/2023 13:49:32 12/31/19 24 12/31/2023 CBC/C OMPLE TE BLD COUNT W/DIF F basophils, absolute count 0.03 x10'3 /uL 0.01-0 .08 Not Available [facility] (Lab) [address] [place], [address], 12/31/2023 13:49:32 12/31/19 24 12/31/2023 CBC/C OMPLE TE BLD COUNT W/DIF F immature granulocytes ,absolute 0.01 x10'3 /uL 0.00-0 .05 Not Available [facility] (Lab) [address] [place], [address], 12/31/2023 13:49:32 12/31/19 24 12/31/2023 CBC/C OMPLE TE BLD COUNT W/DIF F nucleated red blood cells 0.0 % -0 Not Available [facility] (Lab) [address] [place], [address], 12/31/2023 13:49:32 12/31/19 24 12/31/2023 CBC/C OMPLE TE BLD COUNT W/DIF F NRBC# 0.00 x10'3 /uL Not Available [facility] (Lab) [address] [place], [address], 12/31/2023 13:49:32 02/28/20 24 02/28/2024 CBC/C OMPLE TE BLD COUNT W/DIF F white blood cells 4.7 x10'3 /uL 4.2-10 .8 Not Available [facility] (Lab) [address] [place], [address], 02/28/2024 17:54:41 02/28/20 24 02/28/2024 CBC/C OMPLE TE BLD COUNT W/DIF F red blood cells 3.92 x10'6 /uL 3.80-5 .20 Not Available [facility] (Lab) [address] [place], [address], 02/28/2024 17:54:41 02/28/20 24 02/28/2024 CBC/C OMPLE TE BLD COUNT W/DIF F hemoglobin 11.1 g/dL 12.0-1 5.6 low Not Available [facility] (Lab) [address] [place], [address], 02/28/2024 17:54:41 02/28/20 24 02/28/2024 CBC/C OMPLE TE BLD COUNT W/DIF F hematocrit 35.4 % 35.7-4 5.7 low Not Available [facility] (Lab) [address] [place], [address], 02/28/2024 17:54:41 02/28/20 24 02/28/2024 CBC/C OMPLE TE BLD COUNT W/DIF F mean red cell volume 90.3 fL 82.0-9 9.0 Not Available [facility] (Lab) [address] [place], [address], 02/28/2024 17:54:41 02/28/20 24 02/28/2024 CBC/C OMPLE TE BLD COUNT W/DIF F mean red cell hemoglobin 28.3 pg 27.0-3 3.0 Not Available [facility] (Lab) [address] [facility], [address], 02/28/2024 17:54:41 02/28/20 24 02/28/2024 CBC/C OMPLE TE BLD COUNT W/DIF F mean RBC HGB concentratio n 31.4 g/dL 31.0-3 6.0 Not Available [facility] (Lab) [address] [place], [address], 02/28/2024 17:54:41 02/28/20 24 02/28/2024 CBC/C OMPLE TE BLD COUNT W/DIF F red cell distribution width 14.0 % 11.8-1 5.5 Not Available [facility] (Lab) [address] [place], [address], 02/28/2024 17:54:41 02/28/20 24 02/28/2024 CBC/C OMPLE TE BLD COUNT W/DIF F platelets 287 x10'3 /uL 150-40 0 Not Available [facility] (Lab) [address] [place], [address], 02/28/2024 17:54:41 02/28/20 24 02/28/2024 CBC/C OMPLE TE BLD COUNT W/DIF F mean platelet volume 10.4 fL 9.0-12 .4 Not Available [facility] (Lab) [address] [place], [address], 02/28/2024 17:54:41 02/28/20 24 02/28/2024 CBC/C OMPLE TE BLD COUNT W/DIF F neutrophils 53.9 % 39.0-7 2.0 Not Available [facility] (Lab) [address] [place], [address], 02/28/2024 17:54:41 02/28/20 24 02/28/2024 CBC/C OMPLE TE BLD COUNT W/DIF F lymphocytes 31.1 % 16.0-4 7.0 Not Available [facility] (Lab) [address] [place], [address], 02/28/2024 17:54:41 02/28/20 24 02/28/2024 CBC/C OMPLE TE BLD COUNT W/DIF F monocytes 7.4 % 5.0-12 .0 Not Available [facility] (Lab) [address] [place], [address], 02/28/2024 17:54:41 02/28/20 24 02/28/2024 CBC/C OMPLE TE BLD COUNT W/DIF F eosinophils 6.8 % 1.0-7. 0 Not Available [facility] (Lab) [address] [place], [address], 02/28/2024 17:54:41 02/28/20 24 02/28/2024 CBC/C OMPLE TE BLD COUNT W/DIF F basophils 0.6 % 0.0-2. 0 Not Available [facility] (Lab) [address] [place], [address], 02/28/2024 17:54:41 02/28/20 24 02/28/2024 CBC/C OMPLE TE BLD COUNT W/DIF F immature granulocytes 0.2 % 0.00-0 .50 Not Available [facility] (Lab) [address] [place], [address], 02/28/2024 17:54:41 02/28/20 24 02/28/2024 CBC/C OMPLE TE BLD COUNT W/DIF F neutrophils, absolute count 2.53 x10'3 /uL 1.5-8. 0 Not Available [facility] (Lab) [address] [place], [address], 02/28/2024 17:54:41 02/28/20 24 02/28/2024 CBC/C OMPLE TE BLD COUNT W/DIF F lymphocytes, absolute count 1.46 x10'3 /uL 1.07-3 .43 Not Available [facility] (Lab) [address] [facility], [address], 02/28/2024 17:54:41 02/28/20 24 02/28/2024 CBC/C OMPLE TE BLD COUNT W/DIF F monocytes, absolute count 0.35 x10'3 /uL 0.29-0 .99 Not Available [facility] (Lab) [address] [place], [address], 02/28/2024 17:54:41 02/28/20 24 02/28/2024 CBC/C OMPLE TE BLD COUNT W/DIF F eosinophils, absolute count 0.32 x10'3 /uL 0.02-0 .53 Not Available [facility] (Lab) [address] [place], [address], 02/28/2024 17:54:41 02/28/20 24 02/28/2024 CBC/C OMPLE TE BLD COUNT W/DIF F basophils, absolute count 0.03 x10'3 /uL 0.01-0 .08 Not Available [facility] (Lab) [address] [place], [address], 02/28/2024 17:54:41 02/28/20 24 02/28/2024 CBC/C OMPLE TE BLD COUNT W/DIF F immature granulocytes ,absolute 0.01 x10'3 /uL 0.00-0 .05 Not Available [facility] (Lab) [address] [place], [address], 02/28/2024 17:54:41 02/28/20 24 02/28/2024 CBC/C OMPLE TE BLD COUNT W/DIF F nucleated red blood cells 0.0 % -0 Not Available [facility] (Lab) [address] [place], [address], 02/28/2024 17:54:41 02/28/20 24 02/28/2024 CBC/C OMPLE TE BLD COUNT W/DIF F NRBC# 0.00 x10'3 /uL Not Available [facility] (Lab) [address] [place], [address], 02/28/2024 17:54:41 02/28/20 24 02/28/2024 HEPAT IC/LI CYN PANEL alkaline phosphatase 48 U/L 38-126 Not Available [facility] (Lab) [address] [place], [address], 02/28/2024 18:15:55 02/28/20 24 02/28/2024 HEPAT IC/LI CYN PANEL alanine aminotransfe rase 12 U/L 0-35 Not Available [facility] (Lab) [address] [place], [address], 02/28/2024 18:15:55 02/28/20 24 02/28/2024 HEPAT IC/LI CYN PANEL aspartate aminotransfe rase 23 U/L 15-37 Not Available [facility] (Lab) [address] [place], [address], 02/28/2024 18:15:55 02/28/20 24 02/28/2024 HEPAT IC/LI CYN PANEL bilirubin, total 0.40 mg/dL 0.20-1 .30 Not Available [facility] (Lab) [address] [place], [address], 02/28/2024 18:15:55 02/28/20 24 02/28/2024 HEPAT IC/LI CYN PANEL bilirubin, conjugated (direct) 0.00 mg/dL 0.00-0 .30 Not Available [facility] (Lab) [address] [place], [address], 02/28/2024 18:15:55 02/28/20 24 02/28/2024 HEPAT IC/LI CYN PANEL biliurubin,u ncong. (indirect) 0.20 mg/dL 0.00-1 .1 Not Available [facility] (Lab) [address] [place], [address], 02/28/2024 18:15:55 02/28/20 24 02/28/2024 HEPAT IC/LI CYN PANEL total protein 6.3 g/dL 6.3-8. 2 Not Available [facility] (Lab) [address] [place], [address], 02/28/2024 18:15:55 02/28/20 24 02/28/2024 HEPAT IC/LI CYN PANEL albumin 3.8 g/dL 3.4-5. 0 Not Available [facility] (Lab) [address] [place], [address], 02/28/2024 18:15:55 02/28/20 24 02/28/2024 HEPAT IC/LI CYN PANEL globulin 2.5 g/dL 2.6-4. 2 low Not Available [facility] (Lab) [address] [place], [address], 02/28/2024 18:15:55 02/28/20 24 02/28/2024 HEPAT IC/LI CYN PANEL A/G ratio 1.5 ratio 1.0-2. 0 Not Available [facility] (Lab) [address] [place], [address], 02/28/2024 18:15:55 02/28/20 24 02/28/2024 AMYLA SE SERUM amylase 67 U/L 30-110 Not Available [facility] (Lab) [address] [place], [address], 02/28/2024 18:15:59 02/28/20 24 02/28/2024 LIPAS E SERUM lipase 90 U/L 23-300 Not Available [facility] (Lab) [address] [place], [address], 02/28/2024 18:16:00 12/31/19 24 US, abdom en, limit ed [facility] [address] [place] [address] Patien t Name: BETTYE DIXON Access ion #: [id number] Sex: F : 1979 2 Dictat ed By: Billy Herrmann ms Attend ing Physic marifer: ARLET GUILLEN CE Orderi ng Physic marifer: ARLET GUILLEN CE Exam Date: [...] is no intrah epatic or extrah epatic tyrone [id number]|2025-04-06 08:07:00|2025-04-06 08:07:00|XMS_ITS|BKG DAEMON|External Medical Summaries|[id number]|" Clinical Summary Created on: April 06, 2025 Bettye Dixon : 1980 Sex: Female Author Organization [facility] [address] Address [address] [place] [address] Care Team Providers Care Veterans' Coordinator Name Role Phone Kishan Doshi MD Primary Care Provider [phone] Allergies Active Allergy Reactions Criticality Noted Date [...] on file Legal Sex Female 3:58 AM SPECIAL NEEDS BABYSITTER Gender Identity Female 09/23/2021 10:15 AM CDT Sexual Orientation Straight 09/23/2021 10 :15 AM CDT Obstetrics History Last Filed Vital Signs Vital Sign Reading Time Taken Comments Blood Pressure 127/76 09/30/2022 11:52 AM SPECIAL NEEDS BABYSITTER Pulse 113 09/30/2022 11:52 AM SPECIAL NEEDS BABYSITTER Temperature - - Respiratory Rate - - Oxygen Saturation - - Inhaled Oxygen Concentration - - Weight 64.4 kg (142 lb) 09/30/2022 11:52 AM SPECIAL NEEDS BABYSITTER Height 162.6 cm (5' 4 ) 09/30/2022 11:52 AM SPECIAL NEEDS BABYSITTER Body Mass Index 24.37 09/30/2022 11:52 AM SPECIAL NEEDS BABYSITTER Plan of Treatment Health Maintenance Due Date Last Done Comments Depression Screening 1980 Hepatitis C Screening 1980 Varicella Vaccines (1 of 2 - 13+ 2-dose series) 1994 Hepatitis B Screening 1999 Regular Well Visit/Exam 18-64 04/06/2023, 01/15/2021 Breast Cancer Screening-Mammogram 09/07/2023 09/07/2022 Covid-19 Vaccine (3 - 2023-2 5 season) 2024 09/24/2021, 01/27/2021 DTaP/Tdap/Td Vaccine (2 - Td or Tdap) 06/13/2025 06/13/2015 Influenza Vaccine (Season Ended) 2025 09/14/2018 HPV Vaccines Aged Out No longer eligi ble based on patient's age to complete this topic Pneumococcal vaccine <65 Aged Out No longer eligible based on patient's age to complete this topic Insurance [facility] Care Teams Veterans' Coordinator Relationship Specialty Start Date End Date Kishan Doshi MD PCP - General Internal Medicine 10/23/20 "
--- OUTSIDE RECORDS SUMMARY | 2025-04-06 08:07 | XMS_ITS | Encounter Summary ---
Author Organization [facility] Address [address] [place] [address] Care Team Providers Care Acoustical Tile Drill Press Operator Name Role Phone Kishan Doshi MD Primary Care Provider [phone] Encounter Details Date Type Department Care Team (Late st Contact Info) Description 08/18/2018 Lab Requisition [facility] [address] [place] [id number] Vitaly Bryson MD [address] [place] [address] Social History Tobacco Use Types [...] AM CDT) Case Report Dermatopathology Report Case: [id number] Authorizing Provider: Vitaly Bryson MD Collected: 08/17/2018 12:00 AM Pathologist: Josi Hill MD Received: 08/18/2018 11:52 AM Specimens: A) - Skin, right ala B) - Skin, RUQ abd under breast C) - Skin, right inf med buttock 8 10:28 AM CDT DERMATOPATHOLOGY LABORATORY Amended Report Gross description for specimen C changed from shave to punch. 8 10:28 AM CDT DERMATOPATHOLOGY LABORATORY Final Diagnosis Specimen A. SKIN, right ala: ANGIOFIBROMA (FIBROUS PAPULE) (D21.0) Specimen B. SKIN, RUQ abd under breast: COMPOUND MELANOCYTIC NEVUS (D22.5) Specimen C. SKIN, right inf med buttock: DERMATOFIBROMA (D23.9) 10:[address] [facility] DERMATOPATHOLOGY LABORATORY Amendment electronically signed by Josi Hill MD on 09/01/2018 at 10:28 AM Clinical History A: R/O FDN. B: R/O dys nevus. C: R/O DF. 10:[address] [facility] DERMATOPATHOLOGY LABORATORY Gross Description Specimen A: Received is one formalin filled container labeled with the patient's name and designated right ala. The specimen consists of a shave biopsy measuring [id number]. Jar 0. Specimen B: Received is one formalin filled container labeled with the patient's name and designated RUQ abd under breast. The specimen consists of a shave (2 pieces) biopsy measuring [id number], 7a1l1mv. Jar 0. Specimen C: Received is one formalin filled container labeled with the patient's name and designated right inf med buttock. The specimen consists of a punch biopsy measuring [id number], bisected. Jar 0. 10:[address] [facility] DERMATOPATHOLOGY LABORATORY Microscopic Description Specimen A. SKIN, [...] array among coarse collagen bundles. 10:[address] [facility] DERMATOPATHOLOGY LABORATORY Disclaimer An external and internal positive and negative controls are appropriate for the histochemical, immunohistochemical and immunofluorescence stain(s) in this case (if any), except where stated explicitly. The performance characteristics of the stain(s) cited in this report were developed and its performance characteristic determined by the Dermatopathology Laboratory at [facility]. These tests need not be, and therefore are not, approved by the [place] Food and Drug Administration. The tests are used for clinical purposes. Billing Codes Specimen Charges Stain Charges 26803 24225 80708 1 1 1 8 10:28 AM CDT DERMATOPATHOLOGY LABORATORY Embedded Images 8 10:28 AM CDT DERMATOPATHOLOGY LABORATORY Pathology/Cytology TISSUE SPECIMEN FROM SKIN / Unknown 08/17/2018 08/18/2018 11:52 AM CDT Miscellaneous samples (specimen) TISSUE SPECIMEN FROM SKIN / Unknown 08/17/2018 08/18/2018 11:52 AM CDT Miscellaneous samples (specimen) TISSUE SPECIMEN FROM SKIN / Unknown 08/17/2018 08/18/2018 11:52 AM CDT Vitaly Bryson MD LAB - PATHOLOGY/CYTOLOGY ORD ERABLES Edited Result - Final DERMATOPATHOLOGY LABORATORY [facility] - Department of Dermatology [address] [place] [address] [address] [phone] documented in this encounter Visit Diagnoses Not on filedocumented in this encounter Care Teams Acoustical Tile Drill Press Operator Relationship Specialty Start Date End Date Kishan Doshi MD PCP - General 08/18/18 documented as of this encounter
[2025-04-06 08:19] LABS: Hematocrit 41.6 % (35.0-49.0); Mean Corpuscular HGB Conc 31.3 g/dL (32-36); Mean Corpuscular Hemoglobin 28.7 pg (27.0-31.0); Mean Corpuscular Volume 91.8 fL (78.0-102.0); Mean Platelet Volume 9.3 fl (9.2-11.8); Platelet Count Result 255 K/mm3 (150-420); Red Blood Count 4.53 M/mm3 (4.20-5.40); Red Cell Distribution Width 12.6 % (11.6-14.4); White Blood Count 3.1 K/mm3 (4.8-10.8)
[2025-04-06 08:45] LABS: Alanine Aminotransferase 15 U/L (6-35); Albumin Level 3.8 g/dL (3.5-5.1); Alkaline Phosphatase 41 U/L (38-126); Anion Gap 0 mmol/L (4-12); Aspartate Amino Transferase 23 U/L (14-36); Bilirubin,Total 0.8 mg/dL (0.2-1.3); Blood Urea Nitrogen 9 mg/dL (7-17); Calcium 8.9 mg/dL (8.4-10.2); Carbon Dioxide 29 mmol/L (22-30); Chloride 110 mmol/L (98-107); Cholesterol 163 mg/dL (0-200); Estimated Glomerular Filt Rate > 60; Glucose 80 mg/dL (65-110); HDL Direct 66 mg/dL; LDL Cholesterol Calculated 82 mg/dL (<130); Osmolality Calculated 285 mOsm/kg (285-295); Potassium 4.3 mmol/L (3.4-5.0); Sodium 139 mmol/L (137-145); Total Protein 6.2 g/dL (6.3-8.2); Triglycerides 75 mg/dL (<150)
[2025-04-06 08:53] LABS: Band Neutrophils Percent 0 % (0-6); Lymphocytes Absolute Manual 1.36 K/mm3 (1.1-4.5); Lymphocytes Percent Manual 44 % (18-44); Monocytes Absolute Manual 0.27 K/mm3 (0.1-0.90); Monocytes Percent Manual 9 % (3-9); Neutrophils Absolute Manual 1.45 K/mm3 (1.7-7.2); Neutrophils Percent Manual 47 % (46-73); Platelet Estimate Adequate (Adequate); Total Cells Counted 100
[2025-04-06 09:02] LABS: Free T4 Free Thyroxine 1.46 ng/dL (0.78-2.19)
[2025-04-06 09:16] LABS: Thyroid Stimulating Hormone 0.433 uIU/mL (0.465-4.680)
[2025-04-06 09:22] LABS: Erythrocyte Sedimentation Rate 10 mm/hr (0-15)
== END 2025-04-06 08:01 | disposition home or self-care (01) ==
PROVIDERS: PCP Internal Medicine; Visit Provider Internal Medicine
DX: G43.909 Migraine, unspecified, not intractable, without status migrainosus (principal); Z13.6 Encounter for screening for cardiovascular disorders; R53.83 Other fatigue
CPT/HCPCS: 36415; 80053; 80061; 84439; 84443; 85025; 85652

== ENCOUNTER 2025-05-08 08:14 | Outpatient (CLI) | payer OTHER, SELFPAY ==
--- OUTSIDE RECORDS SUMMARY | 2025-05-08 08:24 | XMS_ITS | Referral Summary ---
Author Organization [facility] [address] Address [address] [place] [address] Care Team Providers Care Ammonia Box Tender Name Role Phone Kishan Doshi MD Primary Care Provider [phone] Allergies Active Allergy Reactions Criticality Noted Date [...] on file Legal Sex Female 3:58 AM ELECTROTYPE MOLDER Gender Identity Female 09/23/2021 10:15 AM CDT Sexual Orientation Straight 09/23/2021 10 :15 AM CDT Last Filed Vital Signs Vital Sign Reading Time Taken Comments Blood Pressure 127/76 09/30/2022 11:52 AM ELECTROTYPE MOLDER Pulse 113 09/30/2022 11:52 AM ELECTROTYPE MOLDER Temperature - - Respiratory Rate - - Oxygen Saturation - - Inhaled Oxygen Concentration - - Weight 64.4 kg (142 lb) 09/30/2022 11:52 AM ELECTROTYPE MOLDER Height 162.6 cm (5' 4) 09/30/2022 11:52 AM ELECTROTYPE MOLDER Body Mass Index 24.37 09/30/2022 11:52 AM ELECTROTYPE MOLDER Plan of Treatment Not on file Insurance Care Teams Ammonia Box Tender Relationship Specialty Start Date End Date Kishan Doshi MD PCP - General Internal Medicine 10/23/20
--- OUTSIDE RECORDS SUMMARY | 2025-05-08 08:25 | XMS_ITS | Data Portability ---
Author Organization [facility], Main Office Address [address] [place] [address] Assessment No assessment recorded. Plan of Treatment Reminders Order Date Submit Date Provider Last Modified By Organization Details Last Modified Time Details Appointments None recorded. Lab lipid panel, serum [id number] [place] [address] Outpatient Lab, [address] [place], [address], 11:32:13 CMP, serum or plasma 2024 025 [facility] Outpatient Lab, [address] [place], [address], 5 13:18:23 ESR (erythrocyt e sedimentati on rate), blood [id number] Outpatient Lab, [address] [place], [address], 5 08:23:07 TSH, serum or plasma [id number] Outpatient Lab, [address] [place], [address], 5 08:23:06 CBC w/ auto diff 2024 025 [facility] Outpatient Lab, [address] [place], [address], 5 11:24:30 T4, free, serum [id number] Outpatient Lab, [address] [place], [address], 5 08:23:07 CBC w/ auto diff 2023 024 [facility] Outpatient Lab, [address] [place] [address], [address], 4 17:54:41 hepatic function panel, serum 2023 024 [facility] Outpatient Lab, [address] [place] [address], [address], 4 18:15:55 amylase + lipase, serum [id number] [place] [address] Lab, [address] [place] [address], [address], 4 15:12:04 CBC w/ auto diff 2023 024 [facility] Outpatient Lab, [address] [place], [address], 4 13:49:32 CMP, serum or plasma 2023 024 [facility] Outpatient Lab, [address] [place] [address], [address], 4 13:36:18 lipase, serum or plasma 2023 024 [facility] Outpatient Lab, [address] [place] [address], [address], 4 13:36:21 amylase, serum or plasma 2023 024 [facility] Outpatient Lab, [address] [place], [address], 4 13:36:23 lipid panel, serum 2023 024 [facility] Outpatient Lab, [address] [place] [address], [address], 13:36:28 Referral None recorded. Procedures None recorded. Surgeries None recorded. Imaging None recorded. Medication Orders pantoprazol e 40 mg tablet,phillip yed release 2023 024 [email or web address] [id number], [address] [place], [address], 11:08:08 Patient TargetsNo targets recorded. 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 Plan is to institute on the cholestyramine. Will try to get blood work consisting of a hepatic panel along with a CBC and lipase and amylase. Keep Appt: Wed 09:50 AM [facility] Portions of the record may have been created with voice recognition software. Occasional wrong-word or s ound-a-like substitutions may have occurred due to the inherent limitations of voice recognition software. Read the chart carefully and recognize, using context, where substitutions have occurred. [email or web address] Not available 02/28/2024 15:40:56 04/04/2024 [id number] risk assessment* [email or web address] Not availabl e 04/04/2024 11:22:32 INFLUENZA VACCIN E Patient will get at local pharmacy/health department TD/TDAP Patient will get at local pharmacy/health department PNEUMONIA VACCINE Recommended at age 65 SHINGLES Not indicated MAMMOGRAM: Last Mammogram No screening necessary patient is up to date DEXA SCAN No screening indicated CERVICAL SCREENING/PELVIC EXAMINATION up to date COLORECTAL SCREENING: Last Colonoscopy No screening necessary patient is up to date DEPRESSION SCREENING Negative BMI Appropriate NUTRITION Continue healthy eating & exercise PHYSICAL ACTIVITY Appropriate physical activity VISION Your next exam in: goes yearly ALCOHOL USE No alcohol use TOBACCO USE non smoker LUNG CANCER SCREENING Non Smoker-not indicated SEXUALLY ACTIVE HEPATITIS C SCREENING Not indicated GLUCOSE SCREENING up to date LIPID SCREENING up to date [email or web address] Not available 04/04/2024 11:15:30 Adult health evaluation risk assessment stable. Is up-to-date on her apparently on her mammography as well as colonoscopy since there is a family history of colon cancer. Otherwise is doing well no need for any additional blood work at this time. Scheduled follow-up with the rehabilitation therapy aide. Follow-up in six months with us. Next Appointment: 6 Months Approximate Date: 10/01/2024 Portions of the record may have been created with voice recognition software. Occasional wrong-word or s ound-a-like substitutions may have occurred due to the inherent limitations of voice recognition software. Read the chart carefully and recognize, using context, where substitutions have occurred. Not available 04/04/2024 11:22:13 10/10/2024 [id number] Follow-up for C diff infection clinically stable. [...] recognize, using context, where substitutions have occurred. [email or web address] Not available 10/10/2024 11:20:17 04/03/2025 [id number] Been bothered intermittently by what sounds like [...] Created: Jose Guillen M.D. 04.03.2025 10:31 AM [email or web address] Not available 04/03/2025 11:31:02 Reason for Referral None Reported. Results Created Date Observation Date Name Description Value Unit Range Abnormal Flag Note LastModifiedBy Organization Detail LastModifiedTime 12/31/19 24 12/31/2023 COMPR EHENS MALLORY METAB OLIC PANEL sodium 138 mmol/ L 137-14 5 Not Available [facility] (Lab) [address] [place], [address], 12/31/2023 13:36:18 12/31/19 24 12/31/2023 COMPR EHENS MALLORY METAB OLIC PANEL potassium 4.0 mmol/ L 3.5-5. 1 Not Available [facility] (Lab) [address] [place], [address], 12/31/2023 13:36:18 12/31/19 24 12/31/2023 COMPR EHENS MALLORY METAB OLIC PANEL chloride 107 mmol/ L 98-107 Not Available [facility] (Lab) [address] [place], [address], 12/31/2023 13:36:18 12/31/19 24 12/31/2023 COMPR EHENS MALLORY METAB OLIC PANEL carbon dioxide 30 mmol/ L 22-30 Not Available [facility] (Lab) [address] [place], [address], 12/31/2023 13:36:18 12/31/19 24 12/31/2023 COMPR EHENS MALLORY METAB OLIC PANEL anion gap 5.0 mmol/ L 14-22 low Not Available [facility] (Lab) [address] [place], [address], 12/31/2023 13:36:18 12/31/19 24 12/31/2023 COMPR EHENS MALLORY METAB OLIC PANEL glucose 79 mg/dL 70-99 Not Available [facility] (Lab) [address] [place], [address], 12/31/2023 13:36:18 12/31/19 24 12/31/2023 COMPR EHENS MALLORY METAB OLIC PANEL BUN 16 mg/dL 8-19 Not Available [facility] (Lab) [address] [place], [address], 12/31/2023 13:36:18 12/31/19 24 12/31/2023 COMPR EHENS MALLORY METAB OLIC PANEL creatinine 0.72 mg/dL 0.66-1 .25 Not Available [facility] (Lab) [address] [place], [address], 12/31/2023 13:36:18 12/31/19 24 12/31/2023 COMPR EHENS MALLORY METAB OLIC PANEL GFR >60 Refer ence Range : Magdalena ge GFR Healt hy Adult : >60 [...] calcu lator is avail able on the [facility] websi te: https ://ww w.kid ruth.o rg/pr ofess ional s/kdo qi/gf r_cal culat or Not Available [facility] (Lab) [address] [place], [address], 12/31/2023 13:36:18 12/31/19 24 12/31/2023 COMPR EHENS MALLORY METAB OLIC PANEL alkaline phosphatase 38 U/L 38-126 Not Available [facility] (Lab) [address] [place], [address], 12/31/2023 13:36:18 12/31/19 24 12/31/2023 COMPR EHENS MALLORY METAB OLIC PANEL alanine aminotransfe rase 14 U/L 0-35 Not Available [facility] (Lab) [address] [place], [address], 12/31/2023 13:36:18 12/31/19 24 12/31/2023 COMPR EHENS MALLORY METAB OLIC PANEL aspartate aminotransfe rase 23 U/L 15-37 Not Available [facility] (Lab) [address] [place], [address], 12/31/2023 13:36:18 12/31/19 24 12/31/2023 COMPR EHENS MALLORY METAB OLIC PANEL bilirubin, total 0.50 mg/dL 0.20-1 .30 Not Available [facility] (Lab) [address] [place], [address], 12/31/2023 13:36:18 12/31/19 24 12/31/2023 COMPR EHENS MALLORY METAB OLIC PANEL calcium 8.9 mg/dL 8.4-10 .2 Not Available [facility] (Lab) [address] [place], [address], 12/31/2023 13:36:18 12/31/19 24 12/31/2023 COMPR EHENS MALLORY METAB OLIC PANEL total protein 6.0 g/dL 6.3-8. 2 low Not Available [facility] (Lab) [address] [place], [address], 12/31/2023 13:36:18 12/31/19 24 12/31/2023 COMPR EHENS MALLORY METAB OLIC PANEL albumin 3.4 g/dL 3.4-5. 0 Not Available [facility] (Lab) [address] [place], [address], 12/31/2023 13:36:18 12/31/19 24 12/31/2023 COMPR EHENS MALLORY METAB OLIC PANEL globulin 2.6 g/dL 2.6-4. 2 Not Available [facility] (Lab) [address] [place], [address], 12/31/2023 13:36:18 12/31/19 24 12/31/2023 COMPR EHENS MALLORY METAB OLIC PANEL A/G ratio 1.3 ratio 1.0-2. 0 Not Available [facility] (Lab) [address] [place], [address], 12/31/2023 13:36:18 12/31/19 24 12/31/2023 LIPAS E SERUM lipase 76 U/L 23-300 Not Available [facility] (Lab) [address] [place], [address], 12/31/2023 13:36:21 12/31/19 24 12/31/2023 AMYLA SE SERUM amylase 63 U/L 30-110 Not Available [facility] (Lab) [address] [place], [address], 12/31/2023 13:36:23 12/31/19 24 12/31/2023 LIPID PANEL cholesterol 174 mg/dL 140-19 9 NIH JORGE NSUS RECOM MENDA TION FOR ZAC STERO L: ADULT CHILD LOW RISK: <200 <170 BORDE RLINE : <200- 239 ----- HIGH RISK: >240 >200 Not Available [facility] (Lab) [address] [place], [address], 12/31/2023 13:36:28 12/31/19 24 12/31/2023 LIPID PANEL triglyceride s 75 mg/dL 0-150 NIH JORGE NSUS REPOR T RECOM MENDA TION FOR TRIGL YCERI CIELO: ADULT CHILD LOW RISK: <150 ----- BODER LINE: 150-1 99 ----- HIGH RISK: >200 ----- Not Available [facility] (Lab) [address] [place], [address], 12/31/2023 13:36:28 12/31/19 24 12/31/2023 LIPID PANEL HDL cholesterol 65 mg/dL 40- Not Available [facility] (Lab) [address] [place], [address], 12/31/2023 13:36:28 12/31/19 24 12/31/2023 LIPID PANEL [...] WILL NOT BE REPOR BHARATHI. Not Available [facility] (Lab) [address] [place], [address], 12/31/2023 13:36:28 12/31/19 24 12/31/2023 CBC/C OMPLE TE BLD COUNT W/DIF F white blood cells 3.9 x10'3 /uL 4.2-10 .8 low Not Available [facility] (Lab) [address] [place], [address], 12/31/2023 13:49:32 12/31/19 24 12/31/2023 CBC/C OMPLE TE BLD COUNT W/DIF F red blood cells 3.81 x10'6 /uL 3.80-5 .20 Not Available [facility] (Lab) [address] [place], [address], 12/31/2023 13:49:32 12/31/19 24 12/31/2023 CBC/C OMPLE TE BLD COUNT W/DIF F hemoglobin 10.7 g/dL 12.0-1 5.6 low Not Available [facility] (Lab) [address] [place], [address], 12/31/2023 13:49:32 12/31/19 24 12/31/2023 CBC/C OMPLE TE BLD COUNT W/DIF F hematocrit 35.1 % 35.7-4 5.7 low Not Available [facility] (Lab) [address] [place], [address], 12/31/2023 13:49:32 12/31/19 24 12/31/2023 CBC/C OMPLE TE BLD COUNT W/DIF F mean red cell volume 92.1 fL 82.0-9 9.0 Not Available [facility] (Lab) [address] [place], [address], 12/31/2023 13:49:32 12/31/19 24 12/31/2023 CBC/C OMPLE TE BLD COUNT W/DIF F mean red cell hemoglobin 28.1 pg 27.0-3 3.0 Not Available [facility] (Lab) [address] [place], [address], 12/31/2023 13:49:32 12/31/19 24 12/31/2023 CBC/C OMPLE TE BLD COUNT W/DIF F mean RBC HGB concentratio n 30.5 g/dL 31.0-3 6.0 low Not Available [facility] (Lab) [address] [place], [address], 12/31/2023 13:49:32 12/31/19 24 12/31/2023 CBC/C OMPLE TE BLD COUNT W/DIF F red cell distribution width 12.7 % 11.8-1 5.5 Not Available [facility] (Lab) [address] [place], [address], 12/31/2023 13:49:32 12/31/19 24 12/31/2023 CBC/C OMPLE TE BLD COUNT W/DIF F platelets 259 x10'3 /uL 150-40 0 Not Available [facility] (Lab) [address] [place], [address], 12/31/2023 13:49:32 12/31/19 24 12/31/2023 CBC/C OMPLE TE BLD COUNT W/DIF F mean platelet volume 10.3 fL 9.0-12 .4 Not Available [facility] (Lab) [address] [place], [address], 12/31/2023 13:49:32 12/31/19 24 12/31/2023 CBC/C OMPLE TE BLD COUNT W/DIF F neutrophils 43.0 % 39.0-7 2.0 Not Available [facility] (Lab) [address] [place], [address], 12/31/2023 13:49:32 0212/31/2023 CBC/C OMPLE TE BLD COUNT W/DIF F lymphocytes 39.4 % 16.0-4 7.0 Not Available [facility] (Lab) [address] [place], [address], 12/31/2023 13:49:32 12/31/19 24 12/31/2023 CBC/C OMPLE TE BLD COUNT W/DIF F monocytes 11.3 % 5.0-12 .0 Not Available [facility] (Lab) [address] [place], [address], 12/31/2023 13:49:32 12/31/19 24 12/31/2023 CBC/C OMPLE TE BLD COUNT W/DIF F eosinophils 5.2 % 1.0-7. 0 Not Available [facility] (Lab) [address] [place], [address], 12/31/2023 13:49:32 12/31/19 24 12/31/2023 CBC/C OMPLE TE BLD COUNT W/DIF F basophils 0.8 % 0.0-2. 0 Not Available [facility] (Lab) [address] [place], [address], 12/31/2023 13:49:32 12/31/19 24 12/31/2023 CBC/C OMPLE TE BLD COUNT W/DIF F immature granulocytes 0.3 % 0.00-0 .50 Not Available [facility] (Lab) [address] [place], [address], 12/31/2023 13:49:32 12/31/19 24 12/31/2023 CBC/C OMPLE TE BLD COUNT W/DIF F neutrophils, absolute count 1.67 x10'3 /uL 1.5-8. 0 Not Available [facility] (Lab) [address] [place], [address], 12/31/2023 13:49:32 12/31/19 24 12/31/2023 CBC/C OMPLE TE BLD COUNT W/DIF F lymphocytes, absolute count 1.53 x10'3 /uL 1.07-3 .43 Not Available [facility] (Lab) [address] [place], [address], 12/31/2023 13:49:32 12/31/19 24 12/31/2023 CBC/C OMPLE TE BLD COUNT W/DIF F monocytes, absolute count 0.44 x10'3 /uL 0.29-0 .99 Not Available [facility] (Lab) [address] [place], [address], 12/31/2023 13:49:32 12/31/19 24 12/31/2023 CBC/C OMPLE TE BLD COUNT W/DIF F eosinophils, absolute count 0.20 x10'3 /uL 0.02-0 .53 Not Available [facility] (Lab) [address] [place], [address], 12/31/2023 13:49:32 12/31/19 24 12/31/2023 CBC/C OMPLE TE BLD COUNT W/DIF F basophils, absolute count 0.03 x10'3 /uL 0.01-0 .08 Not Available [facility] (Lab) [address] [place], [address], 12/31/2023 13:49:32 12/31/19 24 12/31/2023 CBC/C OMPLE TE BLD COUNT W/DIF F immature granulocytes ,absolute 0.01 x10'3 /uL 0.00-0 .05 Not Available [facility] (Lab) [address] [place], [address], 12/31/2023 13:49:32 12/31/19 24 12/31/2023 CBC/C OMPLE TE BLD COUNT W/DIF F nucleated red blood cells 0.0 % -0 Not Available [facility] (Lab) [address] [place], [address], 12/31/2023 13:49:32 12/31/19 24 12/31/2023 CBC/C OMPLE TE BLD COUNT W/DIF F NRBC# 0.00 x10'3 /uL Not Available [facility] (Lab) [address] [place], [address], 12/31/2023 13:49:32 02/28/20 24 02/28/2024 CBC/C OMPLE TE BLD COUNT W/DIF F white blood cells 4.7 x10'3 /uL 4.2-10 .8 Not Available [facility] (Lab) [address] [place], [address], 02/28/2024 17:54:41 02/28/20 24 02/28/2024 CBC/C OMPLE TE BLD COUNT W/DIF F red blood cells 3.92 x10'6 /uL 3.80-5 .20 Not Available [facility] (Lab) [address] [place], [address], 02/28/2024 17:54:41 02/28/20 24 02/28/2024 CBC/C OMPLE TE BLD COUNT W/DIF F hemoglobin 11.1 g/dL 12.0-1 5.6 low Not Available [facility] (Lab) [address] [place], [address], 02/28/2024 17:54:41 02/28/20 24 02/28/2024 CBC/C OMPLE TE BLD COUNT W/DIF F hematocrit 35.4 % 35.7-4 5.7 low Not Available [facility] (Lab) [address] [place], [address], 02/28/2024 17:54:41 02/28/20 24 02/28/2024 CBC/C OMPLE TE BLD COUNT W/DIF F mean red cell volume 90.3 fL 82.0-9 9.0 Not Available [facility] (Lab) [address] [place], [address], 02/28/2024 17:54:41 02/28/20 24 02/28/2024 CBC/C OMPLE TE BLD COUNT W/DIF F mean red cell hemoglobin 28.3 pg 27.0-3 3.0 Not Available [facility] (Lab) [address] [place], [address], 02/28/2024 17:54:41 02/28/20 24 02/28/2024 CBC/C OMPLE TE BLD COUNT W/DIF F mean RBC HGB concentratio n 31.4 g/dL 31.0-3 6.0 Not Available [facility] (Lab) [address] [place], [address], 02/28/2024 17:54:41 02/28/20 24 02/28/2024 CBC/C OMPLE TE BLD COUNT W/DIF F red cell distribution width 14.0 % 11.8-1 5.5 Not Available [facility] (Lab) [address] [place], [address], 02/28/2024 17:54:41 02/28/20 24 02/28/2024 CBC/C OMPLE TE BLD COUNT W/DIF F platelets 287 x10'3 /uL 150-40 0 Not Available [facility] (Lab) [address] [place], [address], 02/28/2024 17:54:41 02/28/20 24 02/28/2024 CBC/C OMPLE TE BLD COUNT W/DIF F mean platelet volume 10.4 fL 9.0-12 .4 Not Available [facility] (Lab) [address] [place], [address], 02/28/2024 17:54:41 02/28/20 24 02/28/2024 CBC/C OMPLE TE BLD COUNT W/DIF F neutrophils 53.9 % 39.0-7 2.0 Not Available [facility] (Lab) [address] [place], [address], 02/28/2024 17:54:41 02/28/20 24 02/28/2024 CBC/C OMPLE TE BLD COUNT W/DIF F lymphocytes 31.1 % 16.0-4 7.0 Not Available [facility] (Lab) [address] [place], [address], 02/28/2024 17:54:41 02/28/20 24 02/28/2024 CBC/C OMPLE TE BLD COUNT W/DIF F monocytes 7.4 % 5.0-12 .0 Not Available [facility] (Lab) [address] [place], [address], 02/28/2024 17:54:41 02/28/20 24 02/28/2024 CBC/C OMPLE TE BLD COUNT W/DIF F eosinophils 6.8 % 1.0-7. 0 Not Available [facility] (Lab) [address] [place], [address], 02/28/2024 17:54:41 02/28/20 24 02/28/2024 CBC/C OMPLE TE BLD COUNT W/DIF F basophils 0.6 % 0.0-2. 0 Not Available [facility] (Lab) [address] [place], [address], 02/28/2024 17:54:41 02/28/20 24 02/28/2024 CBC/C OMPLE TE BLD COUNT W/DIF F immature granulocytes 0.2 % 0.00-0 .50 Not Available [facility] (Lab) [address] [place], [address], 02/28/2024 17:54:41 02/28/20 24 02/28/2024 CBC/C OMPLE TE BLD COUNT W/DIF F neutrophils, absolute count 2.53 x10'3 /uL 1.5-8. 0 Not Available [facility] (Lab) [address] [place], [address], 02/28/2024 17:54:41 02/28/20 24 02/28/2024 CBC/C OMPLE TE BLD COUNT W/DIF F lymphocytes, absolute count 1.46 x10'3 /uL 1.07-3 .43 Not Available [facility] (Lab) [address] [place], [address], 02/28/2024 17:54:41 02/28/20 24 02/28/2024 CBC/C OMPLE TE BLD COUNT W/DIF F monocytes, absolute count 0.35 x10'3 /uL 0.29-0 .99 Not Available [facility] (Lab) [address] [place], [address], 02/28/2024 17:54:41 02/28/20 24 02/28/2024 CBC/C OMPLE TE BLD COUNT W/DIF F eosinophils, absolute count 0.32 x10'3 /uL 0.02-0 .53 Not Available [facility] (Lab) [address] [place], [address], 02/28/2024 17:54:41 02/28/20 24 02/28/2024 CBC/C OMPLE TE BLD COUNT W/DIF F basophils, absolute count 0.03 x10'3 /uL 0.01-0 .08 Not Available [facility] (Lab) [address] [place], [address], 02/28/2024 17:54:41 02/28/20 24 02/28/2024 CBC/C OMPLE TE BLD COUNT W/DIF F immature granulocytes ,absolute 0.01 x10'3 /uL 0.00-0 .05 Not Available [facility] (Lab) [address] [place], [address], 02/28/2024 17:54:41 02/28/20 24 02/28/2024 CBC/C OMPLE TE BLD COUNT W/DIF F nucleated red blood cells 0.0 % -0 Not Available [facility] (Lab) [address] [place], [address], 02/28/2024 17:54:41 02/28/20 24 02/28/2024 CBC/C OMPLE TE BLD COUNT W/DIF F NRBC# 0.00 x10'3 /uL Not Available [facility] (Lab) [address] [place], [address], 02/28/2024 17:54:41 02/28/20 24 02/28/2024 HEPAT IC/LI CYN PANEL alkaline phosphatase 48 U/L 38-126 Not Available [facility] (Lab) [address] [place], [address], 02/28/2024 18:15:55 02/28/20 24 02/28/2024 HEPAT IC/LI CYN PANEL alanine aminotransfe rase 12 U/L 0-35 Not Available [facility] (Lab) [address] [place], [address], 02/28/2024 18:15:55 02/28/20 24 02/28/2024 HEPAT IC/LI CYN PANEL aspartate aminotransfe rase 23 U/L 15-37 Not Available [facility] (Lab) [address] [place], [address], 02/28/2024 18:15:55 02/28/20 24 02/28/2024 HEPAT IC/LI CYN PANEL bilirubin, total 0.40 mg/dL 0.20-1 .30 Not Available [facility] (Lab) [address] [place], [address], 02/28/2024 18:15:55 02/28/20 24 02/28/2024 HEPAT IC/LI CYN PANEL bilirubin, conjugated (direct) 0.00 mg/dL 0.00-0 .30 Not Available [facility] (Lab) [address] [place], [address], 02/28/2024 18:15:55 02/28/20 24 02/28/2024 HEPAT IC/LI CYN PANEL biliurubin,u ncong. (indirect) 0.20 mg/dL 0.00-1 .1 Not Available [facility] (Lab) [address] [place], [address], 02/28/2024 18:15:55 02/28/20 24 02/28/2024 HEPAT IC/LI CYN PANEL total protein 6.3 g/dL 6.3-8. 2 Not Available [facility] (Lab) [address] [place], [address], 02/28/2024 18:15:55 02/28/20 24 02/28/2024 HEPAT IC/LI CYN PANEL albumin 3.8 g/dL 3.4-5. 0 Not Available [facility] (Lab) [address] [place], [address], 02/28/2024 18:15:55 02/28/20 24 02/28/2024 HEPAT IC/LI CYN PANEL globulin 2.5 g/dL 2.6-4. 2 low Not Available [facility] (Lab) [address] [place], [address], 02/28/2024 18:15:55 02/28/20 24 02/28/2024 HEPAT IC/LI CYN PANEL A/G ratio 1.5 ratio 1.0-2. 0 Not Available [facility] (Lab) [address] [place], [address], 02/28/2024 18:15:55 02/28/20 24 02/28/2024 AMYLA SE SERUM amylase 67 U/L 30-110 Not Available [facility] (Lab) [address] [place] [place], [address], 02/28/2024 18:15:59 02/28/20 24 02/28/2024 LIPAS E SERUM lipase 90 U/L 23-300 Not Available [facility] (Lab) [address], [place], [address], 02/28/2024 18:16:00 12/31/19 24 US, abdom en, limit ed [facility] [address], [place] [address] Patien t Name: BETTYE DIXON Access ion #: [id number] Sex: F : 1979 2 Dictat [...] at 2023 08:24: 09 AM Page [address] (Imaging) [address] [place], [address], 12/31/2023 09:29:29 04/12/20 24 04/12/2024 XR, abdom en No observ ation record ed. [address], [place], [address], 04/13/2024 07:46:41 04/21/20 24 04/21/2024 CT, abdom en + pelvi s, w/o contr ast No observ ation record ed. [address], [place], [address], 04/21/2024 12:29:52 02/17/20 25 02/16/2025 MAMMO , scree timmy, bilat eral No observ ation record ed. [address], [place], [address], 02/20/2025 08:44:31 Result Notes None recorded. Problems Name Problem SNOMED Code Status Onset Date Resolution Date Notes Provider Name and Address Organization Details Recorded Time Backache 377211049 Active Not Available [facility] 3 14:59:08 Mood swings 62821636 Active Not Available [facility] 3 14:59:08 Recurrent anxiety 588965571 Active Not Available [facility] 3 14:59:08 Insomnia 532053127 Active Not Available [facility] 3 14:59:08 Dysmenorrh ea 910461699 Active Not Available [facility] 3 14:59:08 Frontal headache 440715298 Active Not Available [facility] 3 14:59:09 Abnormal findings on diagnostic imaging of breast 376093145 Active Not Available [facility] 3 14:59:09 Lesion of breast 954847219 Active Not Available [facility] 3 14:59:09 Depressive disorder 85762485 Active Not Available [facility] 3 14:59:09 Emotional impulsivit y 48977846 Active Not Available [facility] 3 14:59:09 Pain of breast 70563098 Active Not Available [facility] 3 14:59:09 Harmful pattern of use of opioid 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 Not Available [facility] 3 14:59:09 depression 66032376 Active Not Available [facility] 3 14:59:09 Diarrhea 15149841 Active Not Available [facility] 3 14:59:09 Skin lesion 45822827 Active Not Available [facility] 3 14:59:09 Temporoman dibular joint disorder 19916596 Active 2022 Jose Guillen MD [address], [place], [address] , [place] [facility] 3 15:26:37 Low back strain 094337201 Active 2022 Jose Guillen MD [address], [address], [place], [address] , [place] [facility] 3 11:03:22 Abdominal pain 60141646 Active 2023 Jose Guillen MD [address], [place], [address] , [place] [facility] 4 12:31:44 [place] 707948384 Active 2023 Modesta Coyle CMA null, [place] [facility] 4 11:17:10 Acute sinusitis 65082670 Active 2023 Jose Guillen MD [address], [address], [place], [address] , [place] [facility] 4 16:12:36 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 Jose Guillen MD [address], [place], [address] , [place] [facility] [facility] 4 15:40:19 Candidiasi s of vagina 85412692 Active 2023 Jose Guillen MD [address], [address], [place], [address] , [place] [facility] 4 13:53:25 Acute urinary tract infection 978179189 Active 2023 Jose Guillen MD [address], [address], [place], [address] , [place] [facility] 4 14:45:09 Acute bronchitis 44345373 Active 2023 Jose Guillen MD [address], [address], [place], [address] , [place] [facility] 4 12:09:00 Low back pain 486802214 Active 2023 Jose Guillen MD [address], [address], [place], [address] , [place] [facility] 4 11:47:08 Clostridio ides difficile infection 611590185 Active 2023 Jose Guillen MD [address], [address], [place], [address] , [place] [facility] 4 11:16:45 Hemorrhoid s 44720243 Active 2024 Jose Guillen MD [address], [address], [place], [address] , [place] [facility] 5 14:37:57 Episodic migraine 8768766855427 06 Active 2024 Jose Guillen MD [address], [address], [place], [address] , [place] [facility] 5 11:26:58 Fatigue 81943964 Active 2024 Jose Guillen MD [address], [address], [place], [address] , [place] [facility] 5 11:30:25 Blood leukocyte number below reference range 650524510 Active 2024 Modesta Coyle, PSYCHIATRIC TECHNICIAN ASSISTANT null, [place] [facility] 5 11:19:09 Transforme d migraine 721587995 Active 2024 EVELYN Coats, [facility] [employer] [facility] 5 14:59:10 Problem Notes None recorded. Medical Equipment None Reported. Allergies Allergen ID Allergen Name Allergen Category Reaction Reaction Severity Criticality Documentation Date Start Date Code Code System Note Provider Name and Address Organization Details Recorded Time 29336 naproxen medicatio n Not available Not available Not available 01/20/2023 7258 RxNorm Not Available [facility] 3 15:02:35 73989 ibuprofen medicatio n Not available Not available Not available 01/20/2023 5640 RxNorm Not Available [facility] 3 15:02:35 35021 Cipro medicatio n headache Not available unabletoasse 06/29/2024 75921 3 RxNorm EVELYN Coats, [facility] 4 14:32:08 Medications Name Sig Start Date [...] TAKE 1 TABLET BY MOUTH EVERY DAY 04/03 completed Not Available Not Available Not Available benzonatat e 200 mg capsule Take [...] TO AFFECTED AREA 3 TIMES A WEEK 04/03 completed Not Available Not Available Not Available metronidaz ole 500 mg tablet 500 [...] AREA 2 TO 4 TIMES A DAY 2024 active Not Available Not Available Not Avai lable alprazolam 0.5 mg tablet TAKE 1 TABLET [...] propionate 50 mcg/actuat ion nasal spray,susp ension [place] 1 spray every day by intranas al [...] 1 CAPSULE BY MOUTH EVERY 12 HOURS 04/03 completed Not Available Not Available Not Available [...] Updated DateTime 4 162.56 cm 24.7 kg/m2 20489.3 g 83 /min 98.1 [degF] 98 % 98 % 120 mm[Hg] 80 mm[Hg] QUINTON Villegas [facility] [employer] [facility] 4 12:23:22 Date Recorded Body height Body mass index (BMI) Body weight Heart rate Body temperature Oxygen saturation Oxygen saturation in Arterial blood by Pulse oximetry Systolic blood pressure Diastolic blood pressure Provider Name and Address Organization Details Last Updated DateTime 4 162.56 cm 25.1 kg/m2 45996.4 9 g 85 /min 97 [degF] 95 % 95 % 112 mm[Hg] 60 mm[Hg] [facility] [employer] [facility] 4 15:18:57 Date Recorded Body height Body mass index (BMI) Body weight Heart rate Body temperature Oxygen saturation Oxygen saturation in Arterial blood by Pulse oximetry Systolic blood pressure Diastolic blood pressure Provider Name and Address Organization Details Last Updated DateTime 5 162.56 cm 24.5 kg/m2 72556.9 1 g 80 /min 97 [degF] 99 % 99 % 110 mm[Hg] 60 mm[Hg] [facility] [employer] [facility] 5 11:17:23 Date Recorded Body height Body mass index (BMI) Body weight Heart rate Body temperature Oxygen saturation Oxygen saturation in Arterial blood by Pulse oximetry Systolic blood pressure Diastolic blood pressure Provider Name and Address Organization Details Last Updated DateTime 4 162.56 cm 25.1 kg/m2 34221.4 9 g 68 /min 97 [degF] 99 % 99 % 120 mm[Hg] 78 mm[Hg] [facility] [employer] [facility] 4 11:07:37 Date Recorded Body height Body mass index (BMI) Body weight Heart rate Body temperature Oxygen saturation Oxygen saturation in Arterial blood by Pulse oximetry Systolic blood pressure Diastolic blood pressure Provider Name and Address Organization Details Last Updated DateTime 4 162.56 cm 24.9 kg/m2 74630.8 9 g 89 /min 97 [degF] 98 % 98 % 110 mm[Hg] 82 mm[Hg] Maribell BradfordQUINTON [place] [employer] [facility] 10:49:44 Social History None recorded. Functional Status None recorded. Mental Status None recorded. Family History Relationship Description Onset Age of this Age Resolved Age Notes LastModified by Organization Details LastModified Time Father No current problems or disability [email or web address] Not available 04/16 15:30:10 Mother No current problems or disability [email or web address] Not available 04/16 15:30:39 Unspecified Relation Family history of malignant neoplasm [email or web address] Not available 2022 12:08:39 Notes:Mother Living 72 good health Father 58 from [place] Colon and DM One brother from accidental overdose Medical History No medical history recorded. Gynecological HistoryNo gynecological history recorded. Obstetrics History GPAL:G 0 P 0 0 0 0 Past Encounters Encounter ID Performer Location Encounter Start Date Encounter Closed Date Diagnosis/Indication Diagnosis SNOMED-CT Code Diagnosis ICD10 Code Diagnosis Note [id number] Jose Guillen MD [facility] [address] [place] [address] [place] [address] 04/16/2023 14:38:49 04/16/2023 15:38:23 Temporomandibular joint disorder 47160005 M26.609 Screening for cardiovascular system disease 636343897 Z13.6 [id number] Asha Palomo MD [facility] General Surgery [address] [facility] [address] [place] [address] 05/19/2023 15:05:43 05/19/2023 15:36:53 Screening for malignant neoplasm of colon 024472919 Z12.11 FMHX/O [place] [id number] Jose Guillen MD [facility] Internal Med [address] [place] [address] 10/08/2023 10:52:02 10/08/2023 11:07:24 Low back strain 977226526 S39.012A [id number] Jose Guillen MD [facility] Internal Med [address] [address] 12/27/2023 12:11:28 12/27/2023 12:49:34 Abdominal pain 59756529 R10.9 [id number] Jose Guillen MD [facility] Internal Med [facility] [address] [address] 02/28/2024 15:13:14 02/28/2024 15:43:44 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 K91.5 [id number] Jose Guillen MD [facility] Internal Med [facility] [address] [facility] [place] [address] 04/04/2024 11:00:01 04/04/2024 11:25:44 Adult health examination 343829188 Z00.00 Depression screening 171 904772 Z13.31 Abdominal pain 66856937 R10.9 [id number] Jose Guillen MD [facility] Primary Care [facility] [address] [facility] [address] [place] [address] 10/10/2024 10:28:38 10/10/2024 11:27:07 Clostridioides difficile infection 693045745 A04.72 [id number] Jose Giullen MD [facility] Internal Med [facility] [address] [address] 04/03/2025 11:03:44 04/03/2025 11:35:20 Episodic migraine 3397588501 59650 G43.909 Screening for cardiovascular system disease 450036851 Z13.6 Fatigue 98477398 R53.83 Health Concerns Section Related Observation LastModified by Organization Detai ls LastModified Time None Recorded Concern Status LastModified by Organization Details LastModified Time None Recorded Advance Directives Directive None Recorded Payers Insurance Date Sequence Insurance Name Policy Number Policy Santoro Covered Member ID Santoro Member ID Guarantor Name 04/09/2025 1 [facility] ON OR AFTER 05/22/21 (MEDICAID REPLACEMENT - HMO) Bettye Dixon [id number] Bettye Dixon 04/16/2023 1 [place] [id number] Brody Dixon [id number] Bettye Dixon Notes Date Note Type Note Provider Name and Address Organization Details Recorded Time 4 text/html Patient Name: Bettye DixonDate Of Service: Wednesday ( 12.27.2023 ): 1980 [...] Adverse Drug Reactions ReviewedNsaids RashLatex Rash Surgical Qfeubpu0319-78 Right Inguinal Ffclws8812-15 Cvstwcpwi3064-01 Exudpvcwxsin7279-27 Qpxutucrchgd2911-45 Left Eye Removal Preventative Testing Confirmed by Our Yqhwsrz2405/07/2023 ALBUMIN 3.8 G/DL N Social HistoryDoes not smokeDrinks socially Family HistoryMother Living 70 good healthFather 58 from [place] Colon and DMOne brother living and in good health Jose Guillen MD [address] [facility], [facility] [address], [place], [address], [facility] 12/27/2023 12:35:42 4 text/html Patient Name: Bettye [...] of food. Has tried some PPI inhibitors rfin-oli-rpngsxt with no of or no improvement at [...] Adverse Drug Reactions ReviewedNsaids RashLatex Rash Surgical Jyxssnw2855-69 Lap Tbvismcckoglbre3786-67 Right Inguinal Ydoizz4025-44 Rgswuegzr2133-55 Wlfyxfufegtu3566-98 Mikpnidjfdht9792-48 Left Eye Removal Preventative Avgcvqq3105/07/2023 ALBUMIN 3.8 G/DL N Social HistoryDoes not smokeDrinks socially Family HistoryMother Living 70 good healthFather 58 from [place] Colon and DMOne brother living and in good health Jose Guillen MD [address] [facility], [facility] [address], [place], [address], [place] [facility] [employer] [facility] 02/28/2024 15:41:16 4 text/html Patient Name: Bettye [...] Adverse Drug Reactions ReviewedNsaids RashLatex Rash Surgical Fbljumc4053-44 Lap Rqgxoyoscvbzwhm4410-88 Right Inguinal Hugfoc8446-89 Odxjwfkzr3379-98 Etshgbzqzbfx6294-69 Avhcziiemdop7169-04 Left Eye Removal Preventative Uguzlvp9805/07/2023 ALBUMIN 3.8 G/DL N Social HistoryDoes not smokeDrinks socially Family HistoryMother Living 70 good healthFather 58 from [place] Colon and DMOne brother living and in good health Jose Guillen MD [address] [facility], [facility] [address], [place], [address], [facility] [employer] 04/04/2024 11:22:35 4 text/html Patient Name: Bettye [...] Systemic Symptoms:none Medication Reconciliation: from medication list. Lshcggosprw37-76-9772: CT scan of the abdomen and pelvis [...] Adverse Drug Reactions ReviewedNsaids RashLatex Rash Surgical Talvhxx6116-52 Lap Aqkkdqecfylmjkj6541-34 Right Inguinal Jjdckc8578-84 Xwougkqrw0621-39 Kximqqoduihk8036-22 Twgwntfykwku1829-66 Left Eye Removal Preventative Testing( ) 07/11/2024 Colonoscopy ( 5 Years ) 07/11/2029( ) 04/26/2024 Upper Endoscopy 04/26/2029( ) 05/07/2023 Albumin 3.8 G/DL N Social HistoryDoes not smokeDrinks socially Family HistoryMother Living 70 good healthFather 58 from [place] Colon and DMOne brother living and in good health Jose Guillen MD [address] [facility], [facility] [address], [place], [address], [facility] [employer] 10/10/2024 11:20:32 5 text/html Patient Name: Bettye Mac Of Service: Wednesday ( 04.03.2025 ): 1980 Age: 45 There has been approximately a 2.5 lb weight loss since 10/10/2024. This represents approximately a 1.7% change in weight. Weight change attributable to lifestyle changes. Vital Signs:Blood Pressure: Sitting Rt. Arm 110/60Pulse: Sitting 80 /min and RegularRespiratory Rate: 16Height 64 in or 1.6 mWeight 142.5 lb or 64.6 kgBMI 24.5Temperature: 97 F or 36.1 C Chief Complaint: Addressed in HPI Problems or conditions discussed in the HPI were the only ones reviewed during the encounter.Only social and family history addressed in the HPI were reviewed during this encounter. Attendant(s): NoneConstitutional and Systemic Symptoms:none Medication Reconciliation: from medication list. Bubsyzsphrm04-68-0910: CT scan of the abdomen and pelvis without contrast demonstrates a 5 mm nonobstructing left renal calculus. 04-26-2024: Upper endoscopy demonstrates mild esophagitis erosive with no evidence any bleeding. Multiple biopsies performed. History of Present Illness #1. Hx of migraines currently stable: No change in duration, frequency or intensity of headaches. Occurs at a frequency of approximately weekly. Location: generalized area. Associated Symptoms: nausea and photophobia Hx of CVS no hx. Currently taking no medications. The headaches are inadequately controlled. MIDAS Level: 11-20 Moderated Disability Active Medication ListMultivitamin DailyUbrelvy 100 MG TABLET One As Dneed Evy Adverse Drug Reactions ReviewedNsaids RashLatex Rash Surgical Fxyordn0756-01 Lap Vlknjilmfokuywr9460-63 Right Inguinal Mahyou7441-42 Lqisjdybq4203-88 Fejyxpnoqxzv0917-42 Nykwzhomafpu5400-45 Left Eye Removal Preventative TestingPreventative Testing Discussed and Scheduled if Acceptable to Patient ( ) 02/16/2025 Mammogram 02/16/2026( ) 07/11/2024 Colonoscopy ( 5 Years ) 07/11/2029( ) 04/26/2024 Upper Endoscopy 04/26/2029( ) 05/07/2023 Albumin 3.8 G/DL N Social HistoryDoes not smokeDrinks socially Family HistoryMother Living 72 good healthFather 58 from [place] Colon and DMOne brother from accidental overdose Jose Guillen MD [address] [facility] [address], [place], [address], [place] [facility] 04/03/2025 11:31:21 OBGyn Episode No OBEpisode recorded.
--- OUTSIDE RECORDS SUMMARY | 2025-05-08 08:25 | XMS_ITS | Clinical Summary ---
Author Organization [facility] Address [address] [place] [address] Care Team Providers Care Clinical Pharmacy Technician Name Role Phone Kishan Doshi MD Primary Care Provider [phone] Source Comments [facility],non-owned Affiliates and Associated Physician Practices is amultiple site organization consisting of ambulatory clinics and hospital sitesin [place], [place], [place] and [place]. This disclosure is being madepursuant to the Care Everywhere program and may not contain all information available regarding this patient. Last updated 18.[facility] [employer] Social History Tobacco Use Types Packs/Day Years Used Date Smoking Tobacco: Never Assessed Comments Unknown Sex and Gender Information Value Date Recorded Sex Assigned at Not on file Legal Sex Female 11:36 AM CDT Gender Identity Not on file Sexual Orientation Not on file Plan of Treatment Health Maintenance Due Date Last Done Comments LIPID TESTING 1981 MAMMOGRAM 1981 HIV SCREENING 1996 HEPATITIS C SCREENING 02/25/1999 DTAP/TDAP/TD VACCINES (1 - Tdap) 2000 HEPATITIS B VACCINE (1 of 3 - 19+ 3-dose series) 2000 PAP SMEAR 2002 COVID-19 VACCINE ( - 2023-2 5 season) [...] age to complete this topic Insurance [facility] SELF PAY NO INSURANCE Member Subscriber Plan / Payer (Ef fective for All Dates) Name:Bettye Dixon Member ID:Not on file Relation to Subscriber:Not on file Name:BETTYE DIXON Subscriber ID:Not on file (Home) Address: [address] [place] [address] Payer ID:Not on file Group ID:Not on file Type:Self Pay Address: [place] [facility] SELF PAY NO INSURANCE Member Subscriber Plan / Payer (Ef fective for All Dates) Name:Bettye Dixon R Member ID:Not on file Relation to Subscriber:Not on file Name:BETTYE DIXON Subscriber ID:Not on file Address: [address] [place] [address] Payer ID:Not on file Group ID:Not on file Type:Self Pay Address: [place] [facility] SELF PAY NO INSURANCE Member Subscriber Plan / Payer (Ef fective for All Dates) Name:Bettye Dixon R Member ID:Not on file Relation to Subscriber:Not on file Name:BETTYE DIXON Subscriber ID:Not on file Address: [address] [place] [address] Payer ID:Not on file Group ID:Not on file Type:Self Pay Address: [place] [facility] SELF PAY NO INSURANCE Member Subscriber Plan / Payer (Ef fective for All Dates) Name:Bettye Dixon R Member ID:Not on file Relation to Subscriber:Not on file Name:BETTYE DIXON Subscriber ID:Not on file Address: [address] [place] [address] Payer ID:Not on file Group ID:Not on file Type:Self Pay Address: [place], [place] * Guarantor: BETTYE DIXON Account Type Relation to Patient Date of Phone Billing Address Personal/Family [address] [place] [address] [facility] SELF PAY NO INSURANCE Member Subscriber Plan / Payer (Ef fective for All Dates) Name:Bettye Dixon R Member ID:Not on file Relation to Subscriber:Not on file Name:BETTYE DIXON Subscriber ID:Not on file Address: [address] [place] [address] Payer ID:Not on file Group ID:Not on file Type:Self Pay Address: [place], [place] * Guarantor: BETTYE DIXON Account Type Relation to Patient Date of Phone Billing Address Personal/Family [address] [place] [address] [facility] SELF PAY NO INSURANCE Member Subscriber Plan / Payer (Ef fective for All Dates) Name:Zack Bettye Acevedo Member ID:Not on file Relation to Subscriber:Not on file Name:ZACKBETTYE Subscriber ID:Not on file Address: [address] [place] [address] Payer ID:Not on file Group ID:Not on file Type:Self Pay Address: [place], [place] * Guarantor: BETTYE DIXON Account Type Relation to Patient Date of Phone Billing Address Personal/Family [address] [place] [address] [facility] SELF PAY NO INSURANCE Member Subscriber Plan / Payer (Ef fective for All Dates) Name:Zack Bettye Acevedo Member ID:Not on file Relation to Subscriber:Not on file Name:BETTYE DIXON Subscriber ID:Not on file Address: [address] [place] [address] Payer ID:Not on file Group ID:Not on file Type:Self Pay Address: [place], [place] Care Teams Clinical Pharmacy Technician Relationship Specialty Start Date End Date Kishan Doshi MD PCP - General 08/18/18
--- OUTSIDE RECORDS SUMMARY | 2025-05-08 08:25 | XMS_ITS | Clinical Summary ---
Author Organization [facility] [address] Address [address] [place] [address] Care Team Providers Care Leathersmith Name Role Phone Kishan Doshi MD Primary Care Provider [phone] Allergies Active Allergy Reactions Criticality Noted Date [...] on file Legal Sex Female 3:58 AM STAKES PLAYER Gender Identity Female 09/23/2021 10:15 AM CDT Sexual Orientation Straight 09/23/2021 10 :15 AM CDT Obstetrics History Last Filed Vital Signs Vital Sign Reading Time Taken Comments Blood Pressure 127/76 09/30/2022 11:52 AM STAKES PLAYER Pulse 113 09/30/2022 11:52 AM STAKES PLAYER Temperature - - Respiratory Rate - - Oxygen Saturation - - Inhaled Oxygen Concentration - - Weight 64.4 kg (142 lb) 09/30/2022 11:52 AM STAKES PLAYER Height 162.6 cm (5' 4) 09/30/2022 11:52 AM STAKES PLAYER Body Mass Index 24.37 09/30/2022 11:52 AM STAKES PLAYER Plan of Treatment Health Maintenance Due Date Last Done Comments Depression Screening 1981 Hepatitis C Screening 1981 Varicella Vaccines (1 of 2 - 13+ 2-dose series) 1994 Hepatitis B Screening 1999 Regular Well Visit/Exam 18-64 04/06/2023, 01/15/2021 Breast Cancer Screening-Mammogram 09/07/2023 09/07/2022 Covid-19 Vaccine (3 - 2024-2 5 season) 2024 09/24/2021, 01/27/2021 DTaP/Tdap/Td Vaccine (2 - Td or Tdap) 06/13/2025 06/13/2015 Influenza Vaccine (Season Ended) 2025 09/14/2018 HPV Vaccines Aged Out No longer eligi ble based on patient's age to complete this topic Pneumococcal vaccine <65 Aged Out No longer eligible based on patient's age to complete this topic Insurance [facility] Care Teams Leathersmith Relationship Specialty Start Date End Date Kishan Doshi MD PCP - General Internal Medicine 10/23/20
--- OUTSIDE RECORDS SUMMARY | 2025-05-08 08:25 | XMS_ITS | Encounter Summary ---
Author Organization [facility] Address [address] [place] [address] Care Team Providers Care Platform Supervisor Name Role Phone Kishan Doshi MD Primary Care Provider [phone] Encounter Details Date Type Department Care Team (Late st Contact Info) Description 08/18/2018 Lab Requisition [facility] Care Derm[facility] Lab [address] [place] [address] Vitaly Bryson MD [address] [place] [address] Social History Tobacco Use Types [...] AM CDT) Case Report Dermatopathology Report Case: [id number] Authorizing Provider: Vitaly Bryson MD Collected: 08/17/2018 [...] inf med buttock: DERMATOFIBROMA (D23.9) 10:28 AM CDT DERMATOPATHOLOGY LABORATORY Amendment electronically signed by Josi Hill MD on 09/01/2018 at 1028 CDT at 1354 CDT Clinical History A: R/O FDN. B: R/O dys nevus. C: R/O DF. 10:28 AM CDT DERMATOPATHOLOGY LABORATORY Gross Description Specimen A: Received is one formalin filled container labeled with the patient's name and designated right ala. The specimen consists of a shave biopsy measuring 8z3b9qx. Jar 0. Specimen B: Received is one formalin filled container labeled with the patient's name and designated RUQ abd under breast. The specimen consists of a shave (2 pieces) biopsy measuring 0u5g4nd, 8a2w0sk. Jar 0. Specimen C: Received is one formalin filled container labeled with the patient's name and designated right inf med buttock. The specimen consists of a punch biopsy measuring 9b7w0yc, bisected. Jar 0. 10:28 AM T DERMATOPATHOLOGY LABORATORY Microscopic Description Specimen A. SKIN, [...] array among coarse collagen bundles. 10:28 AM T DERMATOPATHOLOGY LABORATORY Disclaimer An external and internal positive and negative controls are appropriate for the histochemical, immunohistochemical and immunofluorescence stain(s) in this case (if any), except where stated explicitly. The performance characteristics of the stain(s) cited in this report were developed and its performance characteristic determined by the Dermatopathology Laboratory at [facility]. These tests need not be, and therefore are not, approved by the [place] Food and Drug Administration. The tests are used for clinical purposes. Billing Codes Specimen Charges Stain Charges 21007 11575 81311 1 1 1 8 10:28 AM CDT [...] DERMATOPATHOLOGY LABORATORY [facility] - Department of Dermatology [address] [place] [address] [address] [phone] documented in this encounter Visit Diagnoses Not on filedocumented in this encounter Care Teams Platform Supervisor Relationship Specialty Start Date End Date Kishan Doshi MD PCP - General 08/18/18 documented as of this encounter
--- OUTSIDE RECORDS SUMMARY | 2025-05-08 08:25 | XMS_ITS | Clinical Summary ---
Author Organization [facility] Address [address] [place] [address] Phone Care Team Providers Care Upholstery Repairer Name Role Phone Unavailable Primary Care Provider [...] 10:42 AM CDT Height 162.6 cm (5' 4) 03/17/2021 10:4 2 AM CDT Body Mass [...] this topic Medical Devices Explanted Type Area Airplane Dispatcher Device Identifier Shelf Expiration Date Model / Serial / Lot Breast Explanted:Qty: 1 on 03/17/2021 by Nahum Leiva MD at [facility] Bilateral: Breast Description:left breast impl ant was explanted Breast Implant Right Explanted:Qty: 1 on 03/17/2021 by Nahum Leiva MD at [facility] Right: Breast / N/A / N/A Insurance [facility] Address: [address] [address] Advance Directives For more information, please contact: [phone] * Full Code (Latest Code Status on File) Date Activated Date Inactivated Comments 03/17/2021 2:38 PM 03/17/2021 7:05 PM * Full Code Date Activated Date Inactivated Comments 03/17/2021 10:47 AM 03/17/2021 2:38 PM
[2025-05-08 08:42] LABS: Hematocrit 40.7 % (35.0-49.0); Hemoglobin 12.8 g/dL (12.0-15.0); Mean Corpuscular HGB Conc 31.4 g/dL (32-36); Mean Corpuscular Hemoglobin 29.2 pg (27.0-31.0); Mean Corpuscular Volume 92.7 fL (78.0-102.0); Mean Platelet Volume 9.6 fl (9.2-11.8); Platelet Count Result 242 K/mm3 (150-420); Red Blood Count 4.39 M/mm3 (4.20-5.40); Red Cell Distribution Width 12.5 % (11.6-14.4); White Blood Count 4.1 K/mm3 (4.8-10.8)
== END 2025-05-08 08:15 | disposition home or self-care (01) ==
LOC: CHSLAB 08:16
PROVIDERS: PCP Internal Medicine; Visit Provider Internal Medicine
DX: D72.818 Other decreased white blood cell count (principal)
CPT/HCPCS: 36415; 85027

== ENCOUNTER 2025-08-07 08:08 | Outpatient (CLI) | payer OTHER, SELFPAY ==
--- NOTE | ~2025-08-07 | XR_ITS ---
EXAMINATION: XR lumbar spine 2-3V DATE: 08/07/2025 08:25 INDICATION: Low back pain TECHNIQUE: 3 COMPARISON: None. FINDINGS: There is bowel gas and stool projecting over the pelvis which limits evaluation. Clips project over the abdomen and pelvis . No compression fracture in the lumbar spine. Moderate intervertebral disc space narrowing at L5-S1 level. IMPRESSION: 1. No compression fracture in the lumbar spine. 2. Moderate joint space narrowing at L5-S1 level. If symptoms persist or worsen, consider an MRI of the lumbar spine for further assessment. Reviewed, dictated and finalized at location Q.
--- OUTSIDE RECORDS SUMMARY | 2025-08-07 08:55 | XMS_ITS | Clinical Summary ---
Author Organization [facility] Address [address] [place] [address] Phone Care Team Providers Care Rehabilitation Therapy Aide Name Role Phone Unavailable Primary Care Provider [...] (1 of 3 - 19+ 3-dose series) 02/20 HPV/Cotest (21-29) 2002 HPV VACCINES (1 - 3-dose SCDM series) 2008 CERVICAL CANCER SCREENING 2011 HPV/Cotest (30-65) 2011 PAP SMEAR 2011 BREAST CANCER SCREENING 2021 DTAP/TDAP/TD VACCINES (2 - Td or Tdap) 06/13/2025 INFLUENZA VACCINE (#1) 2025 09/14/2018 Medical Devices Explanted Type Area Hogshead Mat Assembler Device Identifier Shelf Expiration Date Model / Serial / Lot Breast Explanted:Qty: 1 on 03/17/2021 by Nahum Leiva MD at [facility] Bilateral: Breast Description:left breast impl ant was explanted Breast Implant Right Explanted:Qty: 1 on 03/17/2021 by Nahum Leiva MD at [facility] Right: Breast / N/A / N/A Insurance MEDICAID Advance Directives For more information, please contact: [phone] * Full Code (Latest Code Status on File) Date Activated Date Inactivated Comments 03/17/2021 2:38 PM 03/17/2021 7:05 PM * Full Code Date Activated Date Inactivated Comments 03/17/2021 10:47 AM 03/17/2021 2:38 PM
--- OUTSIDE RECORDS SUMMARY | 2025-08-07 08:55 | XMS_ITS | Encounter Summary ---
Author Organization [facility] Address [address] [place] [address] Care Team Providers Care Slice Cutting Machine Operator Helper Name Role Phone Kishan Doshi MD Primary Care Provider [phone] Encounter Details Date Type Department Care Team (Late st Contact Info) Description 08/18/2018 Lab Requisition [facility] DermPath Lab [address] [place] [id number] Vitaly Bryson MD [address] [place] [address] Social History Tobacco Use Types [...] AM CDT) Case Report Dermatopathology Report Case: [id number] Authorizing Provider: Vitaly Bryson MD Collected: 08/17/2018 [...] specimen consists of a shave biopsy measuring [id number]. Jar 0. Specimen B: Received is one formalin filled container labeled with the patient's name and designated RUQ abd under breast. The specimen consists of a shave (2 pieces) biopsy measuring [id number], 6l8x8bb. Jar 0. Specimen C: Received is one formalin filled container labeled with the patient's name and designated right inf med buttock. The specimen consists of a punch biopsy measuring [id number], bisected. Jar 0. 10:28 AM T DERMATOPATHOLOGY [...] determined by the Dermatopathology Laboratory at [facility]. These tests need not be, and therefore are not, approved by the [place] Food and Drug Administration. The tests are used for clinical purposes. Billing Codes Specimen Charges Stain Charges 57501 [id number] [id number] 1 1 1 8 10:28 AM CDT [...] DERMATOPATHOLOGY LABORATORY [facility] - Department of Dermatology [address] [place] [address] [address] [phone] documented in this encounter Visit Diagnoses Not on filedocumented in this encounter Care Teams Slice Cutting Machine Operator Helper Relationship Specialty Start Date End Date Kishan Doshi MD PCP - General 08/18/18 documented as of this encounter
--- OUTSIDE RECORDS SUMMARY | 2025-08-07 08:55 | XMS_ITS | Clinical Summary ---
Author Organization [facility] Address [address] [place] [address] Care Team Providers Care Tool Distributor Name Role Phone Kishan Doshi MD Primary Care Provider [phone] Source Comments [facility],non-owned Affiliates and Associated Physician Practices is amultiple site organization consisting of ambulatory clinics and hospital sitesin [place], [place], [place] and [place]. This disclosure is being madepursuant to the Care Everywhere program and may not contain all information available regarding this patient. Last updated 18.[facility] [employer] Social History Tobacco Use Types Packs/Day Years [...] 19+ 3-dose series) 2000 PAP SMEAR 2002 HPV VACCINE (1 - 3-dose SCDM series) 2008 DEPRESSION SCREENING 11/22/2024 COVID-19 VACCINE (1 - 2023-2 5 season) 2025 INFLUENZA VACCINE (#1) 2025 ZOSTER VACCINE (1 of 2) 2031 [...] age to complete this topic Insurance ANTH [facility] SELF PAY NO INSURANCE Member Subscriber Plan / Payer (Ef fective for All Dates) Name:Bettye Dixon Member ID:Not on file Relation to Subscriber:Not on file Name:BETTYE DIXON Subscriber ID:Not on file (Home) Address: [address] [place] [address] Payer ID:Not on file Group ID:Not on file Type:Self Pay Address: [place], [place] [facility] SELF PAY NO INSURANCE Member Subscriber Plan / Payer (Ef fective for All Dates) Name:Bettye Dixon R Member ID:Not on file Relation to Subscriber:Not on file Name:BETTYE DIXON Subscriber ID:Not on file Address: [address] [place] [address] Payer ID:Not on file Group ID:Not on file Type:Self Pay Address: [place], [place] [facility] SELF PAY NO INSURANCE Member Subscriber Plan / Payer (Ef fective for All Dates) Name:Bettye Dixon R Member ID:Not on file Relation to Subscriber:Not on file Name:BETTYE DIXON Subscriber ID:Not on file Address: [address] [place] [address] Payer ID:Not on file Group ID:Not on file Type:Self Pay Address: [place], [place] [facility] SELF PAY NO INSURANCE Member Subscriber Plan / Payer (Ef fective for All Dates) Name:Bettye Dixon R Member ID:Not on file Relation to Subscriber:Not on file Name:BETTYE DIXON Subscriber ID:Not on file Address: [address] [place] [address] Payer ID:Not on file Group ID:Not on file Type:Self Pay Address: [place], [place] * Guarantor: BETTYE DIXON Account Type Relation to Patient Date of Phone Billing Address Personal/Family [address] [place] [address] [facility] SELF PAY NO INSURANCE Member Subscriber Plan / Payer (Ef fective for All Dates) Name:Bettye Dixon R Member ID:Not on file Relation to Subscriber:Not on file Name:BETTYE DIXON Subscriber ID:Not on file Address: [address] [place] [address] Payer ID:Not on file Group ID:Not on file Type:Self Pay Address: [place], [place] * Guarantor: BETTYE DIXON Account Type Relation to Patient Date of Phone Billing Address Personal/Family [address] [place] [address] [facility] SELF PAY NO INSURANCE Member Subscriber Plan / Payer (Ef fective for All Dates) Name:Zack Bettye R Member ID:Not on file Relation to Subscriber:Not on file Name:ZACKBETTYE Subscriber ID:Not on file Address: [address] [place] [address] Payer ID:Not on file Group ID:Not on file Type:Self Pay Address: [place], [place] * Guarantor: BETTYE DIXON Account Type Relation to Patient Date of Phone Billing Address Personal/Family [address] [place] [address] [facility] SELF PAY NO INSURANCE Member Subscriber Plan / Payer (Ef fective for All Dates) Name:Zack Bettye R Member ID:Not on file Relation to Subscriber:Not on file Name:BETTYE DIXON Subscriber ID:Not on file Address: [address] [place] [address] Payer ID:Not on file Group ID:Not on file Type:Self Pay Address: [place], [place] Care Teams Tool Distributor Relationship Specialty Start Date End Date Kishan Doshi MD PCP - General 08/18/18
--- OUTSIDE RECORDS SUMMARY | 2025-08-07 08:55 | XMS_ITS | Clinical Summary ---
Author Organization [facility] [address] Address [address] [place] [address] Care Team Providers Care Pastry Baker Name Role Phone Kishan Doshi MD Primary Care Provider [phone] Allergies Active Allergy Reactions Criticality Noted Date Comments Adhesive Tape-Silicones Rash Medium 02/19/2021 Ciprofloxacin Headache Low 06/26/2025 Ibuprofen Hives,Itching,Other (See comments) High 06/26/2025 Reaction: Hives, Itching, Naproxen Other (See comments) 06/26/2025 Scopolamine Nausea And Vomiting High 03/17/2021 Severe nausea /vomiting works opposite on her per pt Medications clobetasoL (TEMOVATE) 0.05 % cream APPLY TO AFFECTED AREA 3 TIMES A WEEK 2 Active cyclobenzaprine (FLEXERIL) 10 mg tablet Take 10 mg by mouth 3 (three) times a day 2 Active ALPRAZolam (XANAX) 0.5 mg tablet Take 1 tablet (0.5 mg total) by mouth 4 (four) times a day as needed for anxiety 120 tablet 3 Active citalopram (CeleXA) 20 mg tablet Take 1 tablet every day by oral route. Active ergocalciferol (VITAMIN D) 50,000 unit capsule Active fluconazole (DIFLUCAN) 150 mg tablet 5 Active hydrocortisone (ANUSOL-HC) 2.5 % rectal cream APPLY SPARINGLY TO AFFECTED AREA 2 TO 4 TIMES A DAY 5 Active hydrocortisone- pramoxine (PRAMCORT) 1-1 % rectal cream Activ e zolpidem (AMBIEN) 10 mg tablet Active rizatriptan (MAXALT) 5 mg tabletIndicatio ns:Migraine Take 1 tablet (5 mg total) by mouth once as needed for migraine May repeat in 2 hours if unresolved. Do not exceed 30 mg in 24 hours. 9 tablet 5 06/26/20 26 Active riboflavin, vitamin B2, 400 mg tabletIndicatio ns:Migraine Prevention Take 400 mg by mouth daily 30 tablet 5 06/26/20 26 Active Active Problems Problem Noted Date Diagnosed Date Raynaud's disease without gangrene 04/06/2022 Family history of colon cancer 01/15/2021 Anxiety 01/15/2021 Overview (01/15/2021): Continue medication Routine general medical exam ination at a health care facility 01/15/2021 Overview (01/15/2021): Check labs at this time 11/01/2014 Obstetric risk in currently patient 09/2014 Female infertility 11/18/2012 Encounters Date Type Department Care Team Description 06/26/2025 10:00 AM CDT Office Visit [facility] Neurology [address] [place] [address] Aguilar Manning Si, MD 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); Intractable chronic migraine with aura with status migrainosus from Last 3 Months Immunizations Immunization Administration Dates Next Due Influenza, [...] on file 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 Gender Identity Female 09/23/2021 10:15 AM CDT Sexual Orientation Straight 09/23/2021 10 :15 AM CDT Obstetrics History Last Filed Vital Signs Vital Sign Reading Time Taken Comments Blood Pressure 104/66 06/26/2025 10:07 AM CDT Pulse 74 06/26/2025 10:07 AM CDT Temperature - - Respiratory Rate - - Oxygen Saturation - - Inhaled Oxygen Concentration - - Weight 62.1 kg (137 lb) 06/26/2025 10:07 AM CDT Height 160 cm (5' 3) 06/26/2025 10:07 AM CDT Body Mass Index 24.27 06/26/2025 10:07 AM CDT Plan of Treatment Health Maintenance Due Date Last Done Comments Depression Screening 1981 Hepatitis C Screening 1981 Varicella Vaccines (1 of 2 - 13+ 2-dose series) 1994 Hepatitis B Screening 1999 HPV Vaccines (1 - 3-dose SCD M series) 2008 Regular Well Visit/Exam 18-64 04/06/2023, 01/15/2021 Breast Cancer Screening-Mammogram 09/07/2023 09/07/2022 DTaP/Tdap/Td Vaccine (2 - Td or Tdap) 06/13/2025 06/13/2015 Covid-19 Vaccine (3 - 2024-2 6 season) 2025 09/24/2021, 01/27/2021 Influenza Vaccine (#1) 2025 09/14/2018 Pneumococcal vaccine <65 Aged Out No longer eligible based on patient's age to complete this topic Insurance [facility] Care Teams Pastry Baker Relationship Specialty Start Date End Date Kishan Doshi MD PCP - General Internal Medicine 10/23/20
--- OUTSIDE RECORDS SUMMARY | 2025-08-07 08:55 | XMS_ITS | Patient Health Record ---
Author Organization [facility] Address [address] [facility] [address] [place] [address] Support Name Relationship Address Phone ARJUN CANO Guarantor Unknown [phone] Reason For Referral No Information Plan Of Treatment No Information
== END 2025-08-07 08:09 | disposition home or self-care (01) ==
LOC: CHSLAB 08:10
PROVIDERS: PCP Internal Medicine; Visit Provider Internal Medicine
DX: M54.50 Low back pain, unspecified (principal); M48.07 Spinal stenosis, lumbosacral region
CPT/HCPCS: 72100